=== PATIENT | male | born 1935 | race Caucasian/White ===

== ENCOUNTER 2018-05-29 09:44 | Emergency (ER) | payer OTHER ==
--- OUTSIDE RECORDS SUMMARY | 2018-05-29 09:53 | XMS REPORT | Continuity of Care Document ---
:1935 Author Organization Interface Problems Problem Status Onset Classification Date Comments Source Date Reported PARITAL LOBE Active 10/16/20 [facility] CONTESIUM/ HAND [address] [place] [address] CLOSED CEREBRAL Active 10/16/20 [facility] CONTUSION [address] [place] [address] RIGHT PARIETAL LOBE Active 10/16/20 [facility] CONTUSION [address] [place] [address] Center FALL Active 11/09/[address] TSAH Active 11/09/[address] Final: Unspecified 01/19/20 01/24/2014 [facility] Transient Cerebral 14 [facility] TRANS-ISCHEMIC Active 01/03/20 [facility] ATTACK [address] [place] [address] DDC-EGD Active 05/18/[address] DDC/VARICIES Active 05/18/[address] PORTAL VEIN Active 05/09/20 [facility] TROMBOSIS [address] [place] [address] PORTAL VEIN Active 05/07/20 [facility] THROMBOSIS [address] [place] [address] HOSPITAL F/U Active 04/17/[address] FINGER FX Active 04/12/[address] INTRAPARENCHYMAL Active 04/12/20 [facility] HEMORRHAGE/FX TO [address] [place] [address] FINGER [place] Acute pain Active Problem 05/24/2012 [facility] Acute pain Active Problem 10/20/2017 [facility] CVA (<span Resolved Problem 10/20/2017 [facility] [place] ID="[id number]">C defecits Medical onfirmed</span>)< Center p>1</sup> HLD (<span Resolved Problem 10/20/2017 [place] ID="[id number]">C Medical onfirmed</span>) [place] HTN (<span Resolved Problem 10/20/2017 [place] ID="[id number]">C Medical onfirmed</span>) [place] Prostate cancer Resolved Problem 10/20/2017 [facility] TIA (<span Resolved Problem 10/20/2017 [place] ID="[id number]">Co Medical nfirmed</span>) Center Final: Personal 01/24/2014 [facility] History of Medical Transient Ischemic Center Attack , and Cerebral Infarction without Residual Deficits Final: Unspecified 01/24/2014 [facility] Essential Medical Hypertension Center Prostate cancer Resolved Problem 01/24/2014 [facility] FINGER INJURY NOS Active [facility] PORTAL VEIN Active [facility] THROMBOSIS [facility] ROUTINE MEDICAL Active [facility] EXAM [facility] VARICES OF OTHER Active [facility] SITES Medical [place] ISCHEMIC OPTIC Active [facility] NEUROPTHY [facility] TRAUM SUBRAC HEM W Active [facility] LOC OF [facility] Medical DURATION, [place] CONTUS/LAC CEREB, W Active [facility] OF [facility] Medical DURATION Center Medications Medication Details Route Status Patient Ordering Order Source Instructions Provider Date heparin sodium, 5,000 unit, 1 No Longer [facility] porcine 2500 mL, Route: Active 017 Medical UNT/ML SUB-Q, Drug Center Injectable form: INJ, Solution Q8H, Dosing Weight 81.818, kg, Start date: 10/18/17 8:00:00 [employer], Duration: 30 day, Stop date: 11/17/17 0:00:00 CSTNotes: porcine heparin atorvastatin 40 mg, 1 tab, Inactive [facility] Route: PO, 017 Medical Drug form: Center TAB, Bedtime, Dosing Weight 84.091, kg, Start date: 10/17/17 21:00:00 [employer], Duration: 30 day, Stop date: 11/15/17 21:00:00 CSTNotes: (Same as: Lipitor) Levetiracetam 500 mg=1 tab, Active [facility] 500 MG Oral PO, Q12H, # 12 017 Medical Tablet tab, 0 Center Refill(s) Saline Flush 10 ml, Route: Inactive [facility] 0.9% IVP, Drug 017 Medical Form: INJ, Center Dosing Weight 84.091, kg, Q12H, Start date: 10/17/17 9:00:00 [employer], Duration: 30 day, Stop date: 11/15/17 21:00:00 CSTNotes: Same as: BD Posiflush Sterile Levetiracetam 500 mg, 1 tab, Inactive [facility] Route: PO, 017 Medical Drug form: Center TAB, Q12H, Dosing Weight 84.091, kg, Start date: 10/17/17 9:00:00 [employer], Duration: 30 day, Stop date: 11/15/17 21:00:00 CSTNotes: (Same as:Keppra) sennosides, MCC 8.6 mg, 1 tab, Inactive [facility] Route: PO, 017 Medical Drug Form: Center TAB, Dosing Weight 84.091, kg, Q12H, Start date: 10/17/17 9:00:00 [employer], Duration: 30 day, Stop date: 11/15/17 21:00:00 CSTNotes: (Same as: Senokot) Docusate 100 mg, 1 cap, Inactive [facility] Route: PO, 017 Medical Drug form: Center CAP, Q12H, Dosing Weight 84.091, kg, Start date: 10/17/17 9:00:00 [employer], Duration: 30 day, Stop date: 11/15/17 21:00:00 CSTNotes: (Same as: Colace) (Do Not Crush) Lisinopril 5 mg, 1 tab, Inactive [facility] Route: PO, 017 Medical Drug form: Center TAB, Daily, Dosing Weight 84.091, kg, Start date: 10/17/17 9:00:00 [employer], Duration: 30 day, Stop date: 11/15/17 9:00:00 CSTNotes: (Same as: Prinivil, Zestril) Sertraline 100 mg, 1 tab, Inactive [facility] Route: PO, 017 Medical Drug form: Center TAB, Daily, Dosing Weight 84.091, kg, Start date: 10/17/17 9:00:00 [employer], Duration: 30 day, Stop date: 11/15/17 9:00:00 CSTNotes: (Same as: Zoloft) carvedilol 6.25 mg, 1 Inactive [facility] tab, Route: 017 Medical PO, Drug form: Center TAB, BID, Dosing Weight 84.091, kg, Start date: 10/17/17 9:00:00 [employer], Duration: 30 day, Stop date: 11/15/17 17:00:00 CSTNotes: Give with food. (Same As: Coreg) Hydralazine 10 mg, 0.5 mL, Inactive [facility] Route: IV, [facility] Medical Drug form: Center INJ, Q6H, Dosing Weight 84.091, kg, PRN Hypertension, Start date: 10/17/17 0:55:00 [employer], Duration: 30 day, Stop date: 11/16/17 0:54:00 CSTNotes: (Same as: Apresoline) Push over 5 minutes Labetalol 10 mg, 2 mL, Inactive [facility] Route: IVP, [facility] Medical Drug form: Center INJ, Q15Min, Dosing Weight 84.091, kg, PRN Hypertension, Start date: 10/17/17 0:55:00 [employer], Duration: 30 day, Stop date: 11/16/17 0:54:00 [employer] Dextrose 50% 12.5 gm, 25 Inactive [facility] Syringe mL, Route: [address] [place] [address] IVP, Drug [place] Form: INJ, Dosing Weight 84.091, kg, PRN, PRN Abnormal Lab Result, Start date: 10/17/17 0:53:00 [employer], Duration: 30 day, Stop date: 11/16/17 0:52:00 [employer] Regular 3 unit, 0.03 Inactive [facility] Insulin, Human mL, Route: [address] [place] [address] 100 UNT/ML SUB-Q, [facility] Injectable form: SOLN, Solution PRN, Dosing Weight 84.091, kg, PRN Abnormal Lab Result, Start date: 10/17/17 0:53:00 [employer], Duration: 30 day, Stop date: 11/16/17 0:52:00 CSTNotes: (Same as: Humulin R) Roll in palms of hands gently; Do not shake vigorously. "single patient use only" (Restricted to patients requiring a dose > 60 units) WASTE: F/P - Black; E - Municipal Trash Bin Stable for 28 days at room temperature Expires in days from Date Saline Flush 10 ml, Route: Inactive [facility] 0.9% IVP, Drug [facility] Medical Form: INJ, Center Dosing Weight 84.091, kg, PRN, PRN Line Flush, Start date: 10/17/17 0:53:00 [employer], Duration: 30 day, Stop date: 11/16/17 0:52:00 CSTNotes: Same as: BD Posiflush Sterile Levetiracetam 1,000 mg, Inactive [facility] Route: IVPB, 017 Medical ONCE, Dosing Center Weight 84.091, kg, Start date: 10/17/17 0:53:00 [employer], Stop date: 10/17/17 0:53:00 CSTNotes: Same as Keppra Mix with 100 mL NS, LR or D5W MEDICATION WASTE Product Size: 500 mg Product Wasted: ___ mg Ondansetron 4 mg, 2 mL, Inactive [facility] Route: IVP, 017 Medical Drug form: Center INJ, Q8H, Dosing Weight 84.091, kg, PRN Nausea & Vomiting, Start date: 10/17/17 0:53:00 [employer], Duration: 30 day, Stop date: 11/16/17 0:52:00 CSTNotes: (Same as: Zofran) MEDICATION WASTE Product Size: 4 mg Product Wasted: ___ mg Sodium Chloride 1,000 mL, Inactive [facility] 0.9% IV 1,000 Rate: 100 017 Medical mL ml/hr, Infuse Center over: 10 hr, Route: IV, Dosing Weight 84.091 kg, Total Volume: 1,000, Start date: 10/17/17 0:53:00 [employer], Duration: 30 day, Stop date: 11/16/17 0:52:00 [employer], 2.11, m2 Acetaminophen 1 tab, Route: Inactive [place] 325 MG / PO, Drug Form: 017 Medical Hydrocodone TAB, Dosing Center Bitartrate 5 MG Weight 84.091, Oral Tablet kg, Q4H, PRN Pain Score 1-3, Start date: 10/17/17 0:53:00 [employer], Duration: 30 day, Stop date: 11/16/17 0:52:00 CSTNotes: (Same as: [place] 325/5) Do not exceed 4gm/day of acetaminophen. Levetiracetam 500 mg=1 tab, Active [place] 500 MG Oral PO, Q12H, # 12 016 Medical Tablet tab, 0 Center Refill(s) Aspirin 81 MG 81 mg=1 tab, Active [facility] Enteric Coated PO, Daily, # 016 Medical Tablet 30 tab, 3 Center [Miniprin] Refill(s) carvedilol 6.25 6.25 mg=1 tab, Active [facility] mg oral tablet PO, BID, # 180 016 Medical tab, 0 Center Refill(s) sertraline 100 100 mg=1 tab, Active [facility] mg oral tablet PO, Daily, # 016 Medical 30 tab Center atorvastatin 40 40 mg=1 tab, Active [facility] mg oral tablet PO, Bedtime, # 016 Medical 30 tab [place] lisinopril 5 mg 5 mg=1 tab, Active [facility] oral tablet PO, Daily, # 016 Medical 30 tab [place] Saline Flush 10 ml, Route: No Longer [facility] 0.9% IVP, Drug Active 016 Medical Form: INJ, [place] Dosing Weight 85.455, kg, Q12H, Start date: 11/10/16 9:00:00 [employer], Duration: 30 day, Stop date: 12/09/16 21:00:00 CSTNotes: Same as: BD Posiflush Sterile sennosides, MCC 8.6 mg, 1 tab, No Longer [facility] Route: PO, Active 016 Medical Drug Form: Center TAB, Dosing Weight 85.455, kg, Q12H, Start date: 11/10/16 9:00:00 [employer], Duration: 30 day, Stop date: 12/09/16 21:00:00 CSTNotes: (Same as: Senokot) Levetiracetam 500 mg, 1 tab, No Longer [facility] Route: PO, Active 016 Medical Drug form: [place] TAB, Q12H, Dosing Weight 85.455, kg, Start date: 11/10/16 9:00:00 [employer], Duration: 7 day, Stop date: 11/16/16 21:00:00 CSTNotes: (Same as:Keppra) Docusate Sodium 100 mg, 1 cap, No Longer [place] 100 MG Oral Route: PO, Active 016 Medical Capsule Drug form: [place] CAP, Q12H, Dosing Weight 85.455, kg, Start date: 11/10/16 9:00:00 [employer], Duration: 30 day, Stop date: 12/09/16 21:00:00 CSTNotes: (Same as: Colace) (Do Not Crush) Famotidine 20 mg, 2 mL, Inactive [place] Route: IVP, 016 Medical Drug form: [place] INJ, Q12H, Dosing Weight 85.455, kg, Start date: 11/10/16 9:00:00 [employer], Duration: 30 day, Stop date: 12/09/16 21:00:00 CSTNotes: (Same as: Pepcid) Can be dilute in 5-10cc NS IVP: Slow IV push over at least 2 minutes. Streptococcus 0.5 mL, Route: Inactive [place] pneumoniae IM, Drug Form: [facility] serotype 1 INJ, Daily, Center capsular Start date: antigen 11/10/16 diphtheria 9:00:00 [employer], [id number] protein Duration: 1 conjugate doses or vaccine / times, Stop Streptococcus date: 11/10/16 pneumoniae 9:00:00 serotype 14 CSTNotes: capsular Lightly roll antigen vial (DO NOT diphtheria SHAKE) before [id number] protein administration conjugate . (Same as: vaccine / Prevnar 13) Streptococcus pneumoniae serotype 18C capsular antigen d tramadol 50 mg, 1 tab, No Longer [place] hydrochloride Route: PO, Active 016 Medical 50 MG Oral Drug form: [place] Tablet TAB, Q6H, Dosing Weight 85.455, kg, PRN Pain Score 4-6, Start date: 11/10/16 5:32:00 [employer], Duration: 30 day, Stop date: 12/10/16 5:31:00 CSTNotes: Not to exceed 400mg/day. (Same As: Ultram) Insulin regular 4 unit, 0.04 No Longer [place] mL, Route: Active 016 Medical SUB-Q, Drug Center form: SOLN, Sliding Scale, Dosing Weight 85.455, kg, PRN Blood Glucose Results, Start date: 11/10/16 2:06:00 [employer], Duration: 30 day, Stop date: 12/10/16 2:05:00 CSTNotes: (Same as: Humulin R) Roll in palms of hands gently; Do not shake vigorously. "single patient use only" (Restricted to patients requiring a dose > 60 units) WASTE: F/P - Black; E - Municipal Trash Bin Stable for 28 days at room temperature Expires in days from Date Saline Flush 10 ml, Route: No Longer [facility] 0.9% IVP, Drug Active 016 Medical Form: INJ, Center Dosing Weight 85.455, kg, PRN, PRN Line Flush, Start date: 11/10/16 2:06:00 [employer], Duration: 30 day, Stop date: 12/10/16 2:05:00 CSTNotes: Same as: BD Posiflush Sterile Labetalol 10 mg, 2 mL, No Longer [facility] Route: IVP, Active 016 Medical Drug form: Center INJ, Q15Min, Dosing Weight 85.455, kg, PRN Hypertension, Start date: 11/10/16 2:06:00 [employer], Duration: 3 doses or times, Stop date: Limited # of times Ondansetron 4 mg, 2 mL, No Longer [facility] Route: IVP, Active 016 Medical Drug form: Center INJ, Q8H, Dosing Weight 85.455, kg, PRN Nausea & Vomiting, Start date: 11/10/16 2:06:00 [employer], Duration: 30 day, Stop date: 12/10/16 2:05:00 CSTNotes: (Same as: Tacos) MEDICATION WASTE Product Size: 4 mg Product Wasted: ___ mg Morphine 1 mg, 0.5 mL, Inactive [facility] Route: IVP, 016 Medical Drug form: Center INJ, Q4H, Dosing Weight 85.455, kg, PRN Pain Score 7-10, Start date: 11/10/16 2:06:00 [employer], Duration: 30 day, Stop date: 12/10/16 2:05:00 CSTNotes: (Same as:MORPhine Sulfate) Bisacodyl 10 mg, 1 supp, No Longer [facility] Route: CO, Active 016 Medical Drug form: Center SUPP, Daily, Dosing Weight 85.455, kg, PRN Constipation, Start date: 11/10/16 2:06:00 [employer], Duration: 30 day, Stop date: 12/10/16 2:05:00 CSTNotes: (Same As: Dulcolax, Bisco-Lax) Acetaminophen 1 tab, Route: Inactive [facility] 325 MG / PO, Drug Form: 016 Medical Hydrocodone TAB, Dosing Center Bitartrate 5 MG Weight 85.455, Oral Tablet kg, Q6H, PRN [[place] 5/325] Pain Score 4-6, STAT, Start date: 11/10/16 2:04:00 [employer], Duration: 30 day, Stop date: 12/10/16 2:03:00 CSTNotes: (Same as: [place] 325/5) Do not exceed 4gm/day of acetaminophen. Tylenol 650 mg, 2 tab, No Longer [facility] Route: PO, Active [facility] Drug form: Center TAB, Q6H, Dosing Weight 85.455, kg, PRN Pain 1-3/Temp > 100.4 F, Priority: STAT, Start date: 11/10/16 2:03:00 [employer], Duration: 30 day, Stop date: 12/10/16 2:02:00 CSTNotes: Do not exceed 4 gm/day. (Same as: Tylenol) Keppra 1,000 mg, Inactive [facility] Route: IV, 016 Medical ONCE, Dosing Center Weight 85.455, kg, Priority: STAT, Start date: 11/10/16 1:28:00 [employer], Stop date: 11/10/16 1:28:00 CSTNotes: Same as Keppra Mix with 100 mL NS, LR or D5W MEDICATION WASTE Product Size: 500 mg Product Wasted: ___ mg sodium chloride 1,000 mL, No Longer [facility] 0.9% 1000 ml Rate: 75 Active [facility] INJ 1,000 mL ml/hr, Infuse Center over: 13.3 hr, Route: IV, Dosing Weight 85.455 kg, Total Volume: 1,000, Start date: 11/10/16 1:28:00 [employer], Duration: 30 day, Stop date: 12/10/16 1:27:00 [employer] Saline Flush 10 mL, Route: No Longer [facility] 0.9% IVP, Drug Active 016 Medical Form: INJ, Center Dosing Weight 85.455, kg, PRN, PRN Line Flush, Start date: 11/10/16 0:47:00 [employer], Duration: 30 day, Stop date: 12/10/16 0:46:00 CSTNotes: Same as: BD Posiflush Sterile Lisinopril 5 mg, 1 tab, No Longer [facility] Route: PO, Active 014 Medical Drug form: Center TAB, Daily, Dosing Weight 90.909, kg, Start date: 01/05/14 9:00:00, Duration: 30 day, Stop date: 02/03/14 9:00:00(Same as: Prinivil, Zestril) Ascorbic Acid / 1 tab, Route: No Longer [facility] Biotin / Folic PO, Drug Form: Active 014 Medical Acid / Niacin / TAB, Dosing Center pantothenate / Weight 90.909, pyridoxine / kg, Daily, Riboflavin / Start date: Thiamine 01/05/14 Vitamin B 12 9:00:00, Duration: 30 day, Stop date: 02/03/14 9:00:00(Same as:Thera) Take with food. Vitamin B12 1,000 No Longer [facility] microgram, 1 Active 014 Medical tab, Route: Center PO, Drug form: TAB, Daily, Dosing Weight 90.909, kg, Start date: 01/05/14 9:00:00, Duration: 30 day, Stop date: 02/03/14 9:00:00(Same As: Vitamin B-12) lisinopril 5 mg 5 mg=1 tab, Active [facility] oral tablet PO, Daily, # 014 Medical 30 tab, 0 Center Refill(s) Zoloft 100 mg, 1 tab, Inactive [facility] Route: PO, 014 Medical Drug form: Center TAB, Daily, Dosing Weight 90.909, kg, Start date: 01/04/14 14:00:00, Duration: 30 day, Stop date: 02/03/14 9:00:00(Same as: Zoloft) lisinopril 20 40 mg=2 tab, Inactive [facility] mg oral tablet PO, Daily, # 014 Medical 30 tab, 0 Center Refill(s) atorvastatin 80 80 mg=1 tab, Active [facility] mg oral tablet PO, Bedtime, # 014 Medical 30 tab, 0 Center Refill(s) Aspirin 81 MG 81 mg=1 tab, Active [facility] Enteric Coated PO, Daily, # 014 Medical Tablet 30 tab, 0 Center Refill(s) Aspirin / 81 mg, 1 tab, Inactive [facility] Calcium Route: PO, 014 Medical Carbonate Drug form: [place] ECTAB, Daily, Dosing Weight 90.909, kg, Start date: 01/04/14 13:30:00, Duration: 30 day, Stop date: 02/03/14 9:00:00Do not crush or chew. (Same As: Ecotrin) Lisinopril 40 mg, 2 tab, Inactive [facility] Route: PO, 014 Medical Drug form: [place] TAB, Daily, Dosing Weight 90.909, kg, Priority: NOW, Start date: 01/04/14 12:07:00, Duration: 30 day, Stop date: 02/03/14 9:00:00(Same as: Prinivil, Zestril) Ascorbic Acid 1 tab, PO, Active [facility] 200 MG / Beta Daily, # 30 014 Medical Carotene 1000 tab, 0 Center UNT / cuprous Refill(s) oxide 2 MG / dl-alpha tocopheryl acetate 60 UNT / Lutein 2 MG / sodium selenate 0.055 MG / Zinc Oxide 40 MG Oral Tablet [Ocuvite] Vitamin B12 1 tablet, PO, Active [facility] Daily, 0 014 Medical Refill(s) [place] Ascorbic Acid / 1 tablet, PO, Active [facility] Biotin / Folic Daily, 0 014 Medical Acid / Niacin / Refill(s) [place] pantothenate / pyridoxine / Riboflavin / Thiamine / Vitamin B 12 Aspirin 81 MG 81 mg=1 tab, Inactive [facility] Enteric Coated PO, Daily 014 Medical Tablet [place] Sertraline 100 100 mg=1 tab, Active [facility] MG Oral Tablet PO, Daily 014 Medical [Zoloft] [place] Iohexol 85 mL, Route: Inactive [facility] IVP, Drug 014 Medical Form: [facility] Dosing Weight 90.909, kg, ONCALL, STAT, Start date: 01/04/14 6:27:00, Duration: 1 doses or times, Dose=2.2ml/kg, Max [id number] -- "To be infused by Radiology Staff ONLY"Dose=2.2m l/kg, Max [id number] -- "To be infused by Radiology Staff ONLY"(Same as:Omnipaque 350). Enoxaparin 40 mg, 0.4 mL, Inactive [facility] Route: SUB-Q, 014 Medical Drug form: [place] INJ, [id number], Dosing Weight 90.909, kg, Start date: 01/04/14 6:00:00, Duration: 30 day, Stop date: 02/02/14 6:00:00(Same as: Lovenox) Acetaminophen 650 mg, 2 tab, Inactive [facility] Route: PO, 014 Medical Drug form: [place] TAB, Q4H, Dosing Weight 90.909, kg, PRN Pain 1-3/Temp > 99.5 F, Start date: 01/04/14 5:46:00, Duration: 30 day, Stop date: 02/03/14 5:45:00Do not exceed 4 gm/day. (Same as: Tylenol) atorvastatin 80 mg, 1 tab, Inactive [facility] Route: PO, 014 Medical Drug form: [place] TAB, Bedtime, Dosing Weight 90.909, kg, Priority: NOW, Start date: 01/04/14 1:20:00, Duration: 30 day, Stop date: 02/02/14 21:00:00Same as Lipitor Aspirin / 325 mg, 1 tab, Inactive [facility] Calcium Route: PO, 014 Medical Carbonate Drug form: [place] TAB, Daily, Dosing Weight 90.909, kg, Priority: NOW, Start date: 01/04/14 1:20:00, Duration: 30 day, Stop date: 02/02/14 9:00:00Take with food. docusate sodium 100 mg, 1 cap, PO Active [facility] [place] 100 mg oral PO, Q12H, 20 012 Medical capsule cap, Center Substitution Allowed, CAP [place] 5/325 1-2 tab, PO, PO Active [facility] oral tablet Q4-6H, PRN, 30 012 Medical tab, Pain, Center Substitution Allowed, Maintenance phenytoin 300 300 mg, 1 cap, PO Active [facility] [place] mg oral PO, Bedtime, 5 012 Medical capsule, cap, Center extended Substitution release Allowed Keflex 500 mg 500 mg, 1 cap, PO Active [facility] oral capsule PO, Q8H, 15 012 Medical cap, Center Substitution Allowed Lovenox 30 mg, 0.3 mL, SUB-Q No Longer [facility] Route: SUB-Q, Active 012 Medical Drug form: Center INJ, Q12H, Start date: 04/14/12 9:00:00, Duration: 30 day, Stop date: 05/13/12 21:00:00 docusate sodium 100 mg, 1 cap, PO No Longer [facility] [place] 100 mg oral Route: PO, Active 012 Medical capsule Drug form: Center CAP, Q12H, Start date: 04/13/12 21:00:00, Duration: 30 day, Stop date: 05/13/12 9:00:00 cefazolin 1 gm, Route: IVPB No Longer [facility] IVPB, Drug Active 012 Medical form: PDR/INJ, Center [id number], Start date: 04/13/12 15:00:00, Duration: 24 hr, Stop date: 04/14/12 7:00:00 cefazolin 1 gm, Route: IVPB No Longer [facility] ([facility]) IVPB, Drug Active 012 Medical form: PDR/INJ, Center Q8H, Start date: 04/13/12 10:30:00, Duration: 3 doses or times, Stop date: 04/14/12 2:30:00, (for patients weighing less than 70 kg)(for patients weighing less than 70 kg) Zofran 4 mg, 2 mL, IVP No Longer [facility] Route: IVP, Active 012 Medical Drug form: Center INJ, Q8H, PRN Nausea & Vomiting, Start date: 04/13/12 9:06:00, Duration: 30 day, Stop date: 05/13/12 9:05:00 morphine 2 mg, 1 mL, IV No Longer [facility] Sulfate Route: IV, Active 012 Medical Drug form: Center INJ, Q4H, PRN Pain, Start date: 04/13/12 9:01:00, Duration: 30 day, Stop date: 05/13/12 9:00:00 acetaminophen-h 1 tab, Route: PO No Longer [facility] ydrocodone 325 PO, Drug Form: Active 012 Medical mg-10 mg oral TAB, Q4H, Center tablet Start date: 04/13/12 9:00:00, Duration: 30 day, Stop date: 05/13/12 8:00:00 Dilantin 100 mg 100 mg, 1 cap, PO No Longer Goel [facility] oral capsule, Route: PO, Active 012 Medical extended Drug form: [place] release ERCAP, TID, Start date: 04/13/12 9:00:00, Duration: 7 day, Stop date: 04/19/12 17:00:00 phenytoin 100 mg, 1 cap, PO No Longer [facility] Route: PO, Active 012 Medical Drug form: [place] ERCAP, Q8H, Start date: 04/13/12 8:00:00, Duration: 7 day, Stop date: 04/20/12 0:00:00 Insulin regular 1 unit, 0.01 SUB-Q No Longer [facility] mL, Route: Active 012 Medical SUB-Q, Drug Center form: SOLN, TID-Before Meals, PRN Blood Glucose Results, Start date: 04/13/12 6:05:00, Duration: 30 day, Stop date: 05/13/12 6:04:00 bisacodyl 10 mg, 2 tab, PO No Longer [facility] Route: PO, Active 012 Medical Drug form: [place] ECTAB, Q24H, PRN Constipation, Start date: 04/13/12 6:05:00, Duration: 30 day, Stop date: 05/13/12 6:04:00 docusate 100 mg, 1 cap, PO No Longer -Zo [facility] Route: PO, Active 012 Medical Drug form: [place] CAP, BID, PRN Constipation, Start date: 04/13/12 6:05:00, Duration: 30 day, Stop date: 05/13/12 6:04:00 acetaminophen-h 1 tab, Route: PO No Longer Formerly [facility] ydrocodone 325 PO, Drug Form: Active 012 Medical mg-10 mg oral TAB, Q4H, PRN [place] tablet Pain Score 1-3, Start date: 04/13/12 6:05:00, Duration: 30 day, Stop date: 05/13/12 6:04:00 morphine 4 mg, 1 mL, IVP No Longer [facility] Sulfate Route: IVP, Active 012 Medical Drug form: [place] INJ, Q4H, PRN Pain Score 7-10, Start date: 04/13/12 6:05:00, Duration: 30 day, Stop date: 05/13/12 6:04:00 Dilaudid 1 mg, Route: IV No Longer Ak[facility] IV, ONCE, Active 012 Medical Priority: Center STAT, Start date: 04/13/12 2:23:00, Stop date: 04/13/12 2:23:00 D5W 1/2NS 1,000 1,000 mL, IV No Longer Akunyili [facility] mL Rate: 100 Active 012 Medical ml/hr, Infuse Center over: 10 hr, Route: IV, Dosing Weight 91 kg, Total Volume: 1,000, Priority: STAT, Start date: 04/13/12 1:48:00, Duration: 30 day, Stop date: 05/13/12 1:47:00 Sodium Chloride 1,000 mL, IV No Longer Akunli [facility] 0.9% (Bolus) IV Rate: 100 Active 012 Medical 1,000 mL ml/hr, Infuse Center over: 10 hr, Route: IV, Dosing Weight 90.909 kg, Total Volume: 1,000, Bolus Dose, Priority: STAT, Start date: 04/13/12 1:24:00, Duration: 1 doses or times, Stop date: 04/13/12 11:23:00 cefazolin 1 gm, Route: IVPB No Longer Akuny[facility] IVPB, Drug Active 012 Medical form: PDR/INJ, Center ONCE, Priority: STAT, Start date: 04/13/12 1:23:00, Stop date: 04/13/12 1:23:00 fosphenytoin 1,000 mg, 20 IVPB No Longer Akunyili [facility] mL, Route: Active 012 Medical IVPB, ONCE, Center Priority: STAT, Start date: 04/12/12 22:12:00, Stop date: 04/12/12 22:12:00 aspirin 81 mg Substitution No Longer [facility] tablet, Allowed Active [address] [place] [address] chewable [place] citalopram Substitution Active [facility] Allowed [address] [place] [address] Center Allergies, Adverse Reactions, Alerts Substance Category Reaction Severity Reaction Status Date Comments Source type Reported NKDA Assertion Drug Active [facility] allergy [facility] Immunizations Immunization Date Given Site Status Last Comments Source Updated pneumococcal 11/10/2016 Right completed Sajche [facility] 13-valent vaccine Deltoid [facility] Results Order Name Results Value Reference Date Interpretation Comments Source Range CHEM PANEL Bili Total 1.2 mg/dL 0.2 - 1.3 10/[address] CHEM PANEL Total Protein 6.8 g/dL 6.4 - 8.4 10/[address] CHEM PANEL ALT 18 unit/L 0 - 65 10/[address] CHEM PANEL Alk Phos 56 unit/L 39 - 136 10/[address] CHEM PANEL Albumin Lvl 3.2 g/dL 3.5 - 5.0 10/[address] CHEM PANEL AST 23 unit/L 0 - 37 10/[address] CHEM PANEL eGFR 82 10/17 Result Comment: The eGFR is calculated using the CKD-EPI formula. In most young, healthy individuals the eGFR will be >90 mL/ min/1.73m2. The eGFR declines with age. An eGFR of 60-89 may be normal in [facility] mL/min/1.7 /2016 some populations, particularly the elderly, for whom the CKD-EPI formula has not been extensively validated. Use of the eGFR is not recommended in the following populations: [address] Individuals with unstable creatinine concentrations, including patients and those with serious co-morbid conditions. Patients with extremes in muscle mass or diet. The data above are obtained from the National Kidney Disease Education Program (NKDEP) which additionally recommends that when the eGFR is used in patients with extremes of body mass index for purposes of drug dosing, the eGFR should be multiplied by the estimated BMI. CHEM PANEL Calcium Lvl 7.9 mg/dL 8.5 - 10.5 10/[address] CHEM PANEL CO2 27 meq/L 24 - 32 10/[address] CHEM PANEL Chloride Lvl 108 meq/L 95 - 109 10/[address] CHEM PANEL Potassium Lvl 3.6 meq/L 3.5 - 5.1 10/[address] CHEM PANEL Sodium Lvl 141 meq/L 135 - 145 10/[address] CHEM PANEL BUN 16 mg/dL 7 - 22 10/[address] CHEM PANEL Creatinine 0.86 mg/dL 0.50 - 10/17 [facility] Lvl [address].40 [facility] CHEM PANEL Glucose Lvl 107 mg/dL 70 - 99 10/[address] CHEM PANEL Globulin 3.6 g/dL 2.7 - 4.2 10/[address] CHEM PANEL A/G Ratio 0.9 0.7 - 1.6 10/[address] CHEM PANEL B/C Ratio 19 6 - 25 10/[address] CHEM PANEL AGAP 9.6 meq/L 10.0 - 10/17 [facility] [address] [facility] HEMATOLOGY Basophils 1.3 % 0.0 - 1.0 10/[address] HEMATOLOGY Eosinophils 8.7 % 0.0 - 4.0 10/[address] HEMATOLOGY Monocytes 8.6 % 2.0 - 12.0 10/[address] HEMATOLOGY Basophils # 0.1 K/CMM 0.0 - 0.2 10/[address] HEMATOLOGY Lymphocytes # 2.2 K/CMM 1.0 - 5.5 10/[address] HEMATOLOGY Segs-Bands # 3.3 K/CMM 1.5 - 8.1 10/[address] HEMATOLOGY Monocytes # 0.6 K/CMM 0.0 - 0.[address] [facility] HEMATOLOGY Eosinophils # 0.6 K/CMM 0.0 - 0.5 10/17 [facility] HEMATOLOGY Lymphocytes 32.7 % 20.0 - 10/17 40.0 /2016 [facility] HEMATOLOGY Segs 48.7 % 45.0 - 10/17 75.0 /2016 [facility] HEMATOLOGY PT 13.4 s 12.0 - 10/[address] [facility] HEMATOLOGY INR 1.02 0.85 - 10/17 [facility] [address] [facility] HEMATOLOGY PTT 27.9 s 22.9 - 10/17 [facility] [address] [facility] HEMATOLOGY Hct 42.1 % 42.0 - 10/17 [facility] [address] [facility] HEMATOLOGY MCV 91.8 fL 80.0 - 10/[address] [facility] HEMATOLOGY MCHC 34.5 g/dL 32.0 - 10/[address] [facility] HEMATOLOGY MCH 31.6 pg 27.0 - 10/[address] [facility] HEMATOLOGY Platelet 152 K/CMM 133 - 450 10/17 [facility] HEMATOLOGY RDW 13.6 % 11.5 - 10/[address] [facility] HEMATOLOGY MPV 8.8 fL 7.4 - 10.4 10/17 [facility] HEMATOLOGY Hgb 14.5 g/dL 14.0 - 10/[address] [facility] HEMATOLOGY RBC 4.59 M/CMM 4.70 - 10/[address] [facility] HEMATOLOGY WBC 6.7 K/CMM 3.7 - 10.4 10/17 [facility] Spine Spine EXAM: CT CERVICAL SPINE WITHOUT CONTRAST 10/17 - [facility] cervical wo cervical - Medical contrast CT contrast CT Center DATE: 10/17/2017 1:09 AM [employer] Read by: Yvette Robledo MD Dictated Date/time: 10/17/17 10:19 Electronically Signed by: Yvette Robledo MD 10/17/17 10:21 FINAL REPORT INDICATION: - s/p fall COMPARISON: None available TECHNIQUE: Volumetric CT acquisition of the cervical spine without contrast. Axial, sagittal and coronal reconstructions. IV contrast: None. DLP: 540.44 mGy-cm DISCUSSION: The spine is imaged from the skull base to the level of T3. No acute fracture or malalignment is identified. The level diffuse degenerative changes are present. Facet hypertrophic changes and uncovertebral hypertrophic changes are also present. No significant li sthesis. No soft tissue abnormality is identified. IMPRESSION: No acute abnormality of the cervical spine. Multilevel diffuse degenerative changes. Brain wo Brain wo EXAM: CT BRAIN 10/16 [facility] contrast CT contrast CT /2017 - [facility] This report was dictated by a Medicaid Specialist/Fellow. I have personally reviewed the images as Center well as the Resident's interpretation and agree with the findings. DATE: 10/16/2017 at 22:02 Read by: Cadence Koo MD Resident: Cadence Koo MD Dictated Date/time: 10/16/17 22:08 Electronically Signed by: sAtrid Villanueva MD 10/16/17 23:24 FINAL REPORT CLINICAL INFORMATION: - s/p fall COMPARISON: CT brain 10/16/2017 at 15:18 from outside hospital TECHNIQUE: Axial images of the brain were obtained from the skull base through the vertex without contrast material administration. DLP: 865 mGycm DISCUSSION: Stable small hyperdense lesion in the right occipitoparietal region (image 31 series 5). Areas of hypodensity in the left MCA /[employer] watershed territories secondary to remote ischemia. Confluent hypodensi ty in the supratentorial white matter compatible with leukoaraiosis. Encephalomalacia in the right frontal lobe. Compensatory dilatation of the lateral ventricles, left greater than right. No midline shift or brain herniation. IMPRESSION: Stable small hyperdense lesion in the right occipitoparietal region potentially a small focus of hemorrhage in the setting of recent trauma versus a cavernous angioma. Brain-Outsi Brain-Outside EXAM: CT BRAIN WITHOUT CONTRAST 10/16 [facility] de Consult Consult CT /2016 - [facility] CT Center INDICATION: - outside study, pain post trauma Read by: Allegra Schumacher MD Dictated Date/time: 10/17/17 12:02 Electronically Signed by: Allegra Schumacher MD 10/17/17 12:06 FINAL REPORT COMPARISON: November 10, 2016 TECHNIQUE: Routine axial CT images of the brain were obtained. DISCUSSION: Hyperdense focus at the right temporal occipital junction without surrounding edema or mass effect. Otherwise no additional hemorrhages identified. Encephalomalacia throughout the left hemisphere and ri ght parietal-occipital lobes. Microangiopathic changes and generalized volume loss are present. IMPRESSION: Small hyperdense focus at the left temporal occipital junction may represent a small focus of contusion. No mass effect. Agree with the outside report. Brain-Outsi Brain-Outside EXAM: CT FACIAL BONES OUTSIDE CONSULTATION - [facility] Consult Consult CT /2016 - [facility] CT Center DATE: 10/16/2017 8:53 PM [employer] Read by: Casey Pang MD Dictated Date/time: 10/17/17 12:44 Electronically Signed by: Casey Pang MD 10/17/17 12:45 FINAL REPORT INDICATION: Second interpretation of outside CT performed on trauma transfer patient. COMPARISON: None. TECHNIQUE: Multiplanar images of the facial bones without contrast. Axial , sagittal and coronal images are provided. IV contrast: None. OUTSIDE REPORT: From [facility]. No acute facial bone fracture. DISCUSSION: No acute fracture or malalignment is identified. No acute soft tissue abnormality is identified. IMPRESSION: No acute abnormality. This report is in agreement with the initial interpretation obtained from the outside facility. CARDIAC Total CK 113 unit/L 12 - 191 11/10 [facility] ENZYMES /2016 [facility] CARDIAC Troponin-I null 0.00 - 11/10 [facility] ENZYMES 0.40 /2015 [facility] CARDIAC CK MB Index 1.6 0.0 - 2.5 11/10 [facility] ENZYMES /2016 [facility] CARDIAC CK MB 1.8 ng/mL 0.5 - 3.6 11/10 [facility] ENZYMES /2016 [facility] Carotid Carotid EXAM: US EXTRACRANIAL ARTERIAL DOPPLER 11/10 - [facility] artery artery /2015 - Medical Doppler Doppler bilat Center bilat US US DATE: 11/10/2016 1:37 AM [employer] C[employer] Read by: Jordan Harding MD Dictated Date/time: 11/11/16 09:09 Electronically Signed by: Jordan Harding MD 11/11/16 09:11 FINAL REPORT INDICATION: Syncope and collapse COMPARISON: None. TECHNIQUE: Multiplanar grayscale, color Doppler and spectral Doppler ultrasound images of the carotid and vertebral arteries. DISCUSSION: Right Carotid System: Right Common Carotid Artery (RCCA): 76.3 cm/s Right Internal Carotid Artery (DENISE): 75.7 cm/s The ICA/CCA ratio on the right is 0.99. Right Vertebral Artery (RVA): Antegrade flow with normal waveform. Left Carotid System: Left Common Carotid Artery (LCCA): 110 cm/s Left Internal Carotid Artery (LICA): 77.8 cm/s The ICA/CCA ratio on the left is 0.71 Left Vertebral Artery (LVA): Antegrade flow with normal waveform. IMPRESSION: Unremarkable carotid Doppler without hemodynamically significant stenosis. According to the 2003 Consensus criteria: <50% stenosis: PSV <125 cm/sec, EDV <40cm/sec, ICA:CCA ratio <2 50-69% stenosis: PSV 125-230cm/sec, EDV 40-100cm/sec, ICA:CCA ratio 2-4 >70% stenosis: PSV >230cm/sec, EDV >100cm/sec, ICA:CCA ratio >4 Reference: Radiology. 2003 [id number]. Carotid Artery Stenosis: Murray-scale and Doppler US diagnosis- Society of Radiologists in Ultrasound Consensus Conference. Silvio EG, Marcelo CB, Divine GL, et. al. CARDIAC Troponin-T null 0.000 - 11/[address] [place] [address] [address] [facility] CARDIAC Troponin-I null 0.00 - 11/[address] [place] [address] [address] [facility] CARDIAC Total CK 102 unit/L 11/[address] [place] [address] [facility] CARDIAC CK MB 2.1 ng/mL 0.5 - 3.6 11/10 [place] ENZYM[facility] /2016 [facility] CARDIAC CK MB Index 2.1 0.0 - 2.5 11/10 [place] ENZ[facility] /2016 [facility] CARDIAC CK MB Index 1.8 0.0 - 2.5 11/10 [place] ENZ[facility] /2016 [facility] CARDIAC CK MB 1.7 ng/mL 0.5 - 3.6 11/10 [place] ENZ[facility] /2016 [facility] CARDIAC Troponin-T null 0.000 - 11/10 [place] EN[facility] 0.100 /2016 [facility] CARDIAC Troponin-I null 0.00 - 11/10 [place] ENZYMES 0.40 /2015 [facility] CARDIAC Total CK 92 unit/L 11/10 [place] ENZYM[facility] /2016 [facility] DRUG SCREEN U Phencyc Scr Negative Negative 11/10 [facility] *NA* [place] (11/10/16 5:32 AM) DRUG SCREEN U Danyelle Scr Negative Negative [facility]/10 [facility] [place] (11/10/16 5:32 AM) DRUG SCREEN U Amph Scr Negative Negative 11/[address] [facility]* [place] (11/10/16 5:32 AM) DRUG SCREEN U Opiate Scr Negative Negative 11/10 [facility] [place] (11/10/16 5:32 AM) DRUG SCREEN U Cocaine Scr Negative Negative 11/[address] [facility]* [place] (11/10/16 5:32 AM) DRUG SCREEN U Cannab Scr Negative Negative 11/[address] [facility]* [place] (11/10/16 5:32 AM) DRUG SCREEN UDS Note See Note 11/10 [facility] (11/10/16 5:32 AM) DRUG SCREEN U Benzodia Negative Negative 11/10 [facility] Scr [facility] [place] (11/10/16 5:32 AM) URINE AND UA Mucus Few /LPF None Seen 11/10 [facility] STOOL /LPF /2015 [facility] URINE AND UA WBC 3 /HPF 0 - 5 11/10 [facility] [address]OOL [facility] URINE AND UA Sq Epi Occasional Few /LPF 11/10 [facility] STOOL /LPF /2015 [facility] URINE AND UA Nitrite Negative Negative 11/10 [facility] STOOL [facility] (11/10/16 5:32 AM) [place] URINE AND UA Leuk Est Negative Negative 11/10 [facility] STOOL [facility] (11/10/16 5:32 AM) [place] URINE AND UA 0.2 mg/dL 0.1 - 1.0 11/10 [facility] Urobilinogen /2015 [facility] URINE AND UA Glucose Negative Negative 11/10 [facility] STOOL [facility] (11/10/16 5:32 AM) [place] URINE AND UA Ketones Negative Negative 11/10 [facility] STOOL [facility] (11/10/16 5:32 AM) [place] URINE AND UA Color Light Yellow Yellow 11/10 [facility] STOOL /2015 [facility] (11/10/16 5:32 AM) [place] URINE AND UA Turbidity Clear Clear 11/10 [facility] STOOL [facility] (11/10/16 5:32 AM) [place] URINE AND UA Spec Grav 1.007 <=1.030 11/10 [facility] /2015 [facility] URINE AND UA Blood Negative Negative 11/10 [facility] /2015 [facility] (11/10/16 5:32 AM) [place] URINE AND UA pH 7.5 5.0 - 8.0 11/10 [facility] /2015 [facility] URINE AND UA Bili Negative Negative 11/10 [facility] /2015 [facility] (11/10/16 5:32 AM) [place] URINE AND UA Protein Negative Negative 11/10 [facility] /2015 [facility] (11/10/16 5:32 AM) [place] BLOOD BANK ABO/Rh A POS 11/10 [facility] /2015 [facility] BLOOD BANK Antibody Scrn Negative 11/10 [facility] /2015 [facility] (11/10/16 3:12 AM) [place] Brain wo Brain wo EXAM: CT BRAIN WITHOUT CONTRAST 11/10 - [facility] contrast CT contrast CT /2015 - [facility] DATE: 11/10/2016 8:12 AM Read by: Rodney Aguila MD Dictated Date/time: 11/10/16 08:50 Electronically Signed by: Rodney Aguila MD 11/10/16 08:58 FINAL REPORT INDICATION: Headache, status post fall, transfer for intracranial hemorrhage COMPARISON: None TECHNIQUE: Noncontrast axial imaging of the brain was acquired from the vertex to the skull base. DLP: 1077mGy-cm FINDINGS: Small amount subarachnoid hemorrhage is present left frontoparietal vertex. A small focus of left frontal region hemorrhage (images 25-26) is favored to be subarachnoid. No definitive acute parenchymal abnormality. Diffuse microangiopathic changes. Left parietal-occipital encephalomalacia and small focus of encephalomalacia at the posterior left frontal vertex. Generalized volume loss with passive ventriculomegaly . No midline shift or herniation. The imaged paranasal sinuses and mastoid air cells are clear. Calvarium and skull base are intact. IMPRESSION: Small volume of subarachnoid hemorrhage. No definitive acute parenchymal abnormality. CHEM PANEL Lactic Acid 1.2 mmol/L 0.5 - 2.2 11/[address] [facility] CHEM PANEL Calcium Lvl 8.9 mg/dL 8.5 - 10.5 11/10 [facility]2015 [facility] CHEM PANEL CO2 28 meq/L 24 - 32 11/10 [facility]2015 [facility] CHEM PANEL eGFR 67 11/10 Result Comment: The eGFR is calculated using the CKD-EPI formula. In most young, healthy individuals the eGFR will be >90 mL/ min/1.73m2. The eGFR declines with age. An eGFR of 60-89 may be normal in [facility] mL/min/1. some populations, particularly the elderly, for whom the CKD-EPI formula has not been extensively validated. Use of the eGFR is not recommended in the following populations: [address] Individuals with unstable creatinine concentrations, including patients and those with serious co-morbid conditions. Patients with extremes in muscle mass or diet. The data above are obtained from the National Kidney Disease Education Program (NKDEP) which additionally recommends that when the eGFR is used in patients with extremes of body mass index for purposes of drug dosing, the eGFR should be multiplied by the estimated BMI. CHEM PANEL Chloride Lvl 105 meq/L 95 - 109 11/10 [facility] CHEM PANEL Potassium Lvl 4.4 meq/L 3.5 - 5.1 11/10 [facility]2015 [facility] CHEM PANEL Creatinine 1.05 mg/dL 0.50 - 11/10 [facility] Lvl [address].40 [facility] CHEM PANEL Sodium Lvl 141 meq/L 135 - 145 11/10 [facility]2015 [facility] CHEM PANEL Glucose Lvl 106 mg/dL 70 - 99 11/10 [facility]2015 [facility] CHEM PANEL BUN 19 mg/dL 7 - 22 11/10 [facility] [facility] CHEM PANEL AGAP 12.4 meq/L 10.0 - 11/10 [facility] [address] [facility] CHEM PANEL Lactic Acid 0.9 mMol/L 0.5 - 2.2 11/10 [facility] HEMATOLOGY Estimated % 1.2 % 0.0 - 7.5 11/10 [facility] Lysis [facility] HEMATOLOGY [place] 0.6 min 11/10 [facility] HEMATOLOGY K-time Rapid 1.7 min 0.6 - 2.3 11/10 [facility] [facility] HEMATOLOGY R-time Rapid 0.7 min 0.4 - 0.7 11/10 [facility] [facility] HEMATOLOGY Angle Rapid 73 degrees 64 - 80 11/10 [facility]2015 [facility] HEMATOLOGY ACT (TEG) 113 s 86 - 118 11/10 [facility] HEMATOLOGY G-value Rapid 7.0 K d/sc 5.0 - 11.6 11/10 [facility] HEMATOLOGY Max Amplitude 58 mm 52 - 71 11/10 [facility] HEMATOLOGY Platelet 160 K/CMM 133 - 450 11/10 [facility] HEMATOLOGY MPV 8.9 fL 7.4 - 10.4 11/10 [facility] HEMATOLOGY RDW 13.6 % 11.5 - 11/[address] [facility] HEMATOLOGY WBC 8.9 K/CMM 3.7 - 10.4 11/10 [facility] HEMATOLOGY Hgb 15.5 g/dL 14.0 - 11/[address] [facility] HEMATOLOGY RBC 4.97 M/CMM 4.70 - 11/[address] [facility] HEMATOLOGY MCH 31.2 pg 27.0 - 11/[address] [facility] HEMATOLOGY Hct 45.5 % 42.0 - 11/[address] [facility] HEMATOLOGY MCHC 34.1 g/dL 32.0 - 11/[address] [facility] HEMATOLOGY MCV 91.5 fL 80.0 - 11/[address] [facility] HEMATOLOGY Monocytes 10.7 % 2.0 - 12.0 11/10 [facility] HEMATOLOGY Eosinophils 8.3 % 0.0 - 4.0 11/10 [facility] HEMATOLOGY Basophils 0.9 % 0.0 - 1.0 11/10 [facility] HEMATOLOGY Segs-Bands # 4.6 K/CMM 1.5 - 8.1 11/10 [facility] HEMATOLOGY Segs 51.1 % 45.0 - 11/[address] [facility] HEMATOLOGY Lymphocytes 29.0 % 20.0 - 11/[address] [facility] HEMATOLOGY Monocytes # 0.9 K/CMM 0.0 - 0.8 11/10 [facility] HEMATOLOGY Eosinophils # 0.7 K/CMM 0.0 - 0.5 11/10 [facility] HEMATOLOGY Basophils # 0.1 K/CMM 0.0 - 0.2 11/10 [facility] HEMATOLOGY Lymphocytes # 2.6 K/CMM 1.0 - 5.5 11/10 [place] /2015 [facility] Spine-Outsi Spine-Outside EXAM: CT CERVICAL SPINE WITHOUT CONTRAST 11/09 - [facility] Consult Consult CT /2015 - [facility] CT Center DATE: 11/10/2016 1:06 AM [employer] Read by: Lincoln Sanchez Dictated Date/time: 11/10/16 01:26 Electronically Signed by: Lincoln Sanchez 11/10/16 07:13 FINAL REPORT INDICATION: Trauma. Outside hospital exam submitted for 2nd interpretation. COMPARISON: None. TECHNIQUE: Study performed at [facility] on 11/09/2016 at 2039 hours. Volumetric acquisition of the cervical spine without contrast. Axial, sagittal and coronal reconstructions. IV contrast: None. DLP: 356 mGy-cm FINDINGS: The spine is imaged from the skull base to the level of T2. No acute fracture or malalignment identified in the cervical spine. Multilevel disc degenerative changes and facet arthrosis is noted with associated spinal canal and neural foraminal narrowing No pre or paravertebral hematoma seen. IMPRESSION: 1. No acute fracture or malalignment in the cervical spine. 2. Advanced cervical spondylosis. CARDIAC CK-MB INDEX 1.3 0.0 - 2.5 01/04 [facility] [address] [facility] CARDIAC CK MB 1.2 ng/mL 0.5 - 3.6 01/04 [facility] [address] [facility] CARDIAC Total CK 93 unit/L - 01/04 [facility] ENZYM[facility] [address] [place] [address] CARDIAC Troponin-I null 0.00 - 01/04 [facility] [address] [facility] CARDIAC Total CK 58 unit/L - 01/04 [facility] ENZYMES /2013 [facility] CARDIAC Troponin-T null 0.000 - 01/04 [facility] ENZYMES 0.100 /2013 [facility] URINE AND UA Spec Grav >=1.050 <=1.030 01/04 [facility] *ABN* Center (01/04/2014 11:35:03 [facility]/[place]) URINE AND UA RBC 1 /HPF 0 - 2 01/[address] [facility] URINE AND UA WBC 1 /HPF 0 - 5 01/04 [facility] [address] [place] [address] URINE AND UA Sq Epi Occasional Few /LPF 01/04 [facility] STOOL /LPF /2013 [facility] URINE AND UA Leuk Est Negative Negative 01/04 [facility] (01/04/2014 11:35:03 [place]) [place] URINE AND UA Renal Epi 1 /LPF <=0 /LPF 01/04 [facility] URINE AND UA Mucus Few /LPF None Seen 01/04 [facility] /LPF [facility] URINE AND UA Color Yellow Yellow 01/04 [facility] Medical *NA* [place] (01/04/2014 11:35:03 [place]) URINE AND UA Ketones Negative Negative 01/04 [facility] mg/dL mg/dL /2013 [facility] URINE AND UA pH 6.5 5.0 - 8.0 01/04 [facility] URINE AND UA Turbidity Clear Clear 01/04 [facility] (01/04/2014 11:35:03 [place] [place] URINE AND UA Glucose Negative Negative 01/04 [facility] mg/dL mg/dL [facility] URINE AND UA Protein 50 mg/dL Negative 01/04 [facility] mg/dL [facility] URINE AND UA Nitrite Negative Negative 01/04 [facility] (01/04/2014 11:35:03 [place] [place] URINE AND UA 2.0 mg/dL 0.1 - 1.0 01/04 [facility] Urobilinogen /2013 [facility] URINE AND UA Blood Negative Negative 01/04 [facility] (01/04/2014 11:35:03 [facility]/[place] URINE AND UA Bili Negative Negative 01/04 [facility] Medical *NA* [place] (01/04/2014 11:35:03 [facility]) Brain/Neck Brain/Neck EXAM: CT angiogram of the NECK 01/04 - [facility] CTA CTA - Medical EXAM: CT angiogram of the HEAD Center DATE: January 04, 2014 Read by: Mason Deshpande Dictated Date/time: 01/04/14 11:58 Electronically Signed by: Mason Deshpande MD 01/04/14 12:10 FINAL REPORT INDICATION: Stroke. DISCUSSION: Rapid acquisition spiral images were obtained between the aortic arch and the cranial vertex during intravenous infusion of iodinated contrast for the purposes of CT angiography. 3-D CT angiographic i mages are created using maximum intensity projection technique. The source images are also presented for interpretation. Comparison is made to CT study performed 5 hours earlier the same day. There is atherosclerotic calcification of the aortic arch with minimal involvement of the great vessel origins. An eccentric low density plaque originates in the left carotid bifurcation and extends into the left ICA origin resulting in 60% diameter stenosis. There is mild calcified atherosclerotic change in the right ICA origin without stenosis. There is a smaller eccentric plaque in the distal left common carotid artery without stenosis. The cavernous carotid arteries are unremarkable. There is extrinsic compression on the right vertebral artery by hypertrophic C3-C4 facet joints. The intracranial vessels are unremarkable. There is no stenosis, occlusion , vasculopathy, aneurysm, or vascular malformation. The intracranial venous structures are normal. The soft tissues of the neck and other incidental structures are normal. IMPRESSION: Flow-limiting stenosis at the left ICA origin with soft plaque. No direct visual evidence of distal embolization at this time. ( All quantitative and qualitative assessments of the carotid bifurcation and proximal internal carotid artery stenosis are made at referencing the distal internal carotid artery.) Brain wo Brain wo EXAM: MRI BRAIN 01/04 [facility] contrast contrast MRI /2013 - [facility] DATE: Jan 04, 2014 09:23:34 AM Read by: Jason Hyman Dictated Date/time: 01/04/14 09:55 INDICATION: Weakness Electronically Signed by: Jason Hyman MD 01/04/14 10:04 FINAL REPORT TECHNIQUE: Sagittal T1, axial FLAIR, axial diffusion, axial T2, and axial T1-weighted images of the brain are obtained. FINDINGS: No areas of restricted diffusion are identified to indicate that the patient has had a recent infarct. Innumerable foci of T2 star dephasing are present throughout the parietal lobes and parasagittal occipital lobes with scattered foci also seen in the lateral temporal lobes, primarily posteriorly. Large r areas of T2 star dephasing correspond with regions of gliosis and encephalomalacia at the junction of left parietal and occipital lobes and in a region of remote infarction. Other parasagittal cortica l foci are seen in the occipital lobes bilaterally. The deep murray matter nuclei fail to demonstrate areas of remote hemorrhage. Other portions of the brain parenchyma do not demonstrate regions of cortical ischemia. Abnormal T2 signal is present in the periventricular frontal white matter in a pattern which is suggestive of watershed ischemia, particularly on the left. Overall, the amount of white matter microvascular ischemic change is moderate for age. Appropriate flow-voids are present in the vessels at the base of the brain. It appears that the patient has a origin or type origin of the left posterior cerebral artery from the internal ca rotid artery. A prominent posterior communicating artery is also seen on the right. Caliber of the basilar artery is maintained and flow-voids in the intradural segments of the vertebral arteries are un remarkable. There is no evidence of dural venous sinus thrombosis. Incidental imaging of the orbits, paranasal sinuses, skull, and skull base is unremarkable. IMPRESSION: 1. No acute or recent infarct. 2. Extensive remote hemorrhages involving the territories of the posterior cerebral arteries bilaterally. Concentration of these numerous small and larger areas of hemorrhage in a vascular distribution is concerning for underlying vasculitis. CHEM PANEL Phosphorus 3.4 mg/dL 2.5 - 4.5 01/04 [facility] CHEM PANEL eGFR 73 01/04 1Result Comment: The eGFR is calculated using the CKD-EPI formula. In most young, healthy individuals the eGFR will be >90 mL/ min/1.73m2. The eGFR declines with age. An eGFR of 60-89 may be normal in [facility] mL/min/1. some populations, particularly the elderly, for whom the CKD-EPI formula has not been extensively validated. Use of the eGFR is not recommended in the following populations: [address] Individuals with unstable creatinine concentrations, including patients and those with serious co-morbid conditions. Patients with extremes in muscle mass or diet. The data above are obtained from the National Kidney Disease Education Program (NKDEP) which additionally recommends that when the eGFR is used in patients with extremes of body mass index for purposes of drug dosing, the eGFR should be multiplied by the estimated BMI. CHEM PANEL CO2 26 meq/L 24 - 32 01/04 [facility] CHEM PANEL Calcium Lvl 8.3 mg/dL 8.5 - 10.5 01/04 [facility] CHEM PANEL Glucose Lvl 112 mg/dL 70 - 99 01/04 2Interpretive Data: Adult reference range values reflect the clinical guidelines of the [place] [employer]. [facility] CHEM PANEL Sodium Lvl 140 meq/L 135 - 145 01/04 [facility] CHEM PANEL BUN 22 mg/dL 7 - 01/04 [facility] CHEM PANEL Creatinine 1.0 mg/dL 0.5 - 1.4 01/04 [facility] Lvl /2013 [facility] CHEM PANEL Potassium Lvl 4.1 meq/L 3.5 - 5.1 01/04 [facility] CHEM PANEL Chloride Lvl 106 meq/L 95 - 109 01/04 [facility] CHEM PANEL AGAP 12.1 meq/L 10.0 - 01/[address] [facility] CHEM PANEL Magnesium Lvl 2.0 mg/dL 1.8 - 2.4 01/04 [facility] HEMATOLOGY RDW 14.3 % 11.5 - 01/[address] [facility] HEMATOLOGY Platelet 181 K/CMM 133 - 450 01/04 [facility] HEMATOLOGY Hgb 15.6 g/dL 14.0 - 01/[address] [facility] HEMATOLOGY RBC X 10x6 5.06 M/CMM 4.70 - 01/[address] [facility] HEMATOLOGY MCH 30.8 pg 27.0 - 01/[address] [facility] HEMATOLOGY WBC X 10x3 9.1 K/CMM 3.7 - 10.4 01/04 [facility] HEMATOLOGY MCHC 34.0 g/dL 32.0 - 01/[address] [facility] HEMATOLOGY Hct 45.8 % 42.0 - 01/[address] [facility] HEMATOLOGY MCV 90.6 fL 80.0 - 01/04 94.0 /2013 [facility] HEMATOLOGY MPV 9.0 fL 7.4 - 10.4 01/04 [facility] HEMATOLOGY Monocytes # 0.9 K/CMM 0.0 - 0.8 01/04 [facility] HEMATOLOGY Lymphocytes # 2.2 K/CMM 1.0 - 5.5 01/04 [facility] HEMATOLOGY Segs-Bands # 5.8 K/CMM 1.5 - 8.1 01/04 [facility] HEMATOLOGY Eosinophils # 0.2 K/CMM 0.0 - 0.5 01/04 [facility] HEMATOLOGY Monocytes 9.3 % 2.0 - 12.0 01/04 [facility] HEMATOLOGY Lymphocytes 24.3 % 20.0 - 01/04 [facility] 40.0 /2013 [facility] HEMATOLOGY Basophils 0.3 % 0.0 - 1.0 01/04 [facility] HEMATOLOGY Eosinophils 2.6 % 0.0 - 4.0 01/04 [facility] HEMATOLOGY Segs 63.5 % 45.0 - 01/04 [facility] 75.0 /2013 [facility] LIPIDS CHD Risk 7.17 4.00 - 01/04 [facility] 7.30 [facility] LIPIDS LDL 118 mg/dL <=99 mg/dL 01/04 [facility] (Calculated) [facility] LIPIDS Trig 118 mg/dL <=149 01/04 [facility] mg/dL [facility] LIPIDS Chol 165 mg/dL <=199 01/04 [facility] mg/dL [facility] LIPIDS HDL 23 mg/dL >=61 mg/dL 01/04 [facility] SPECIAL Hgb A1C 5.6 % <=5.6 % 01/04 [facility] CHEMISTRY [facility] CHEMISTRY Albumin Lvl 3.5 g/dL 3.5 - 5.0 04/[address] [facility] CHEMISTRY ALT 15 U/L 0 - 65 04/[address] [facility] CHEMISTRY Alk Phos 59 U/L 39 - 136 04/[address] [facility] CHEMISTRY Bili Total 0.7 mg/dL 0.2 - 1.3 04/[address] [facility] CHEMISTRY Bili Direct 0.2 mg/dL 0.0 - 0.3 04/[address] [facility] CHEMISTRY Total Protein 6.4 g/dL 6.4 - 8.4 04/[address] [facility] CHEMISTRY AST 7 U/L 0 - 37 04/[address] [facility] CHEMISTRY Bili Indirect 0.5 mg/dL 0.0 - 1.0 04/14 Normal [facility] CHEMISTRY A/G Ratio 1.2 0.7 - 1.6 04/14 Normal [facility] CHEMISTRY Globulin 2.9 g/dL 2.0 - 4.0 04/14 Normal [facility] CHEMISTRY Phosphorus 3.7 mg/dL 2.5 - 4.5 04/[address] [facility] CHEMISTRY Magnesium Lvl 2.2 mg/dL 1.8 - 2.4 04/[address] [facility] CHEMISTRY AGAP 10.9 meq/L 10.0 - 06 Normal [facility] 20.0 /2011 [facility] CHEMISTRY Calcium Lvl 8.1 mg/dL 8.5 - 10.5 04/[address] [facility] CHEMISTRY CO2 30 meq/L 24 - 32 04/[address] [facility] CHEMISTRY Creatinine 1.2 mg/dL 0.5 - 1.4 04/14 [facility] CHEMISTRY Glucose Lvl 113 mg/dL 70 - 99 06 HI 1Interpretive Data: Adult Medical reference Center range values reflect the clinical guidelinesof the [place] [employer]. CHEMISTRY BUN 12 mg/dL 7 - 22 04/14 Normal [facility] CHEMISTRY Sodium Lvl 139 meq/L 135 - 145 04/14 Normal [facility] CHEMISTRY Potassium Lvl 3.9 meq/L 3.5 - 5.1 04/14 [address] [facility] CHEMISTRY Chloride Lvl 102 meq/L 95 - 109 04/14 Normal [facility] HEMATOLOGY Segs 51.2 % 45.0 - 06 Normal [facility] 75.0 [facility] HEMATOLOGY Basophils 0.7 % 0.0 - 1.0 / Normal [facility] HEMATOLOGY Eosinophils 12.3 % 0.0 - 4.0 / [facility] HEMATOLOGY Monocytes 9.3 % 2.0 - 12.0 / Normal [facility] HEMATOLOGY Lymphocytes 26.5 % 20.0 - 06 Normal [facility] [address] [facility] HEMATOLOGY Basophils # 0.1 K/CMM 0.0 - 0.2 06/ Normal [facility] HEMATOLOGY Eosinophils # 0.9 K/CMM 0.0 - 0.5 06/ [facility] HEMATOLOGY Monocytes # 0.7 K/CMM 0.0 - 0.8 06/ Normal [facility] HEMATOLOGY Lymphocytes # 2.0 K/CMM 1.0 - 5.5 06/ Normal [facility] HEMATOLOGY Segs-Bands # 3.9 K/CMM 1.5 - 8.1 06/ Normal [facility] HEMATOLOGY MCHC 33.7 g/dL 32.0 - 06 Normal [facility] 36.0 /2011 [facility] HEMATOLOGY MCH 29.3 pg 27.0 - 04/14 Normal [facility] 31.0 [facility] [place] HEMATOLOGY MPV 8.7 fL 7.4 - 10.4 06 Normal [facility] [place] HEMATOLOGY MCV 86.9 fL 80.0 - 04/14 Normal [facility] 94.0 [facility] [place] HEMATOLOGY Platelet 161 K/CMM 133 - 450 06 Normal [facility] [place] HEMATOLOGY RDW 14.8 % 11.5 - 06 HI [facility] 14.5 /2011 [facility] HEMATOLOGY Hgb 13.4 g/dL 14.0 - 06 LOW [facility] 18.0 /2011 [facility] [place] HEMATOLOGY RBC 4.57 M/CMM 4.70 - 06 LOW [facility] 6.10 /2011 [facility] [place] HEMATOLOGY WBC 7.6 K/CMM 3.7 - 10.4 04/[address] [facility] HEMATOLOGY Hct 39.7 % 42.0 - 04/14 LOW [facility] 54.0 [facility] CHEMISTRY Glucose Lvl 141 mg/dL 70 - 99 04/13 [place] 2Interpretive Data: Adult Medical reference Center range values reflect the clinical guidelinesof the [place] [employer]. CHEMISTRY Creatinine 1.2 mg/dL 0.5 - 1.4 04/13 Normal [facility] Lvl [facility] CHEMISTRY BUN 14 mg/dL 7 - 22 04/[address] [facility] CHEMISTRY Potassium Lvl 4.3 meq/L 3.5 - 5.1 04/[address] [facility] CHEMISTRY Sodium Lvl 137 meq/L 135 - 145 04/[address] [facility] CHEMISTRY Chloride Lvl 102 meq/L 95 - 109 04/[address] [facility] CHEMISTRY Calcium Lvl 7.8 mg/dL 8.5 - 10.5 04/[address] [facility] CHEMISTRY CO2 25 meq/L 24 - 32 04/[address] [facility] CHEMISTRY AGAP 14.3 meq/L 10.0 - 04/13 Normal [facility] 20.0 [facility] HEMATOLOGY MCH 28.6 pg 27.0 - 04/13 Normal [facility] 31.0 [facility] HEMATOLOGY MCV 87.9 fL 80.0 - 04/13 Normal [facility] 94.0 /2011 [facility] HEMATOLOGY MPV 8.3 fL 7.4 - 10.4 06/ Normal [facility] HEMATOLOGY Platelet 169 K/CMM 133 - 450 06/ [facility] HEMATOLOGY MCHC 32.5 g/dL 32.0 - 06 Normal [facility] 36.0 /2011 [facility] [place] HEMATOLOGY RDW 14.4 % 11.5 - 06 Normal [facility] 14.5 [facility] HEMATOLOGY RBC 4.56 M/CMM 4.70 - 06 LOW [facility] 6.10 /2011 Medical [place] HEMATOLOGY WBC 7.9 K/CMM 3.7 - 10.4 06/ [facility] HEMATOLOGY Hct 40.1 % 42.0 - 06 [facility] [address] [facility] HEMATOLOGY Hgb 13.0 g/dL 14.0 - 06 [facility] 18.0 /2011 [facility] HEMATOLOGY Monocytes # 0.8 K/CMM 0.0 - 0.8 06/ [facility] HEMATOLOGY Eosinophils # 0.3 K/CMM 0.0 - 0.5 06/ [facility] HEMATOLOGY Basophils # 0.0 K/CMM 0.0 - 0.2 06/ [facility] HEMATOLOGY Basophils 0.5 % 0.0 - 1.0 06/ [facility] HEMATOLOGY Eosinophils 4.4 % 0.0 - 4.0 06/ [place] [facility] HEMATOLOGY Monocytes 10.0 % 2.0 - 12.0 06/ [facility] HEMATOLOGY Lymphocytes 18.8 % 20.0 - 06/ [facility] 40.0 /2011 [facility] HEMATOLOGY Lymphocytes # 1.5 K/CMM 1.0 - 5.5 06/ [facility] HEMATOLOGY Segs-Bands # 5.2 K/CMM 1.5 - 8.1 04/[address] [facility] HEMATOLOGY Segs 66.3 % 45.0 - 06/ [facility] 75.0 /2011 Medical [place] HEMATOLOGY Estimated % 4.5 % 0.0 - 7.5 06/ [facility] HEMATOLOGY R-time 0.7 min 0.4 - 0.7 04/[address] [facility] HEMATOLOGY Rapid TEG Citrated 04/13 NA [facility] Sample Type Whole Bld /2011 [facility] HEMATOLOGY [place] 0.6 min 04/[address] [facility] HEMATOLOGY ACT (TEG) 113 s 86 - 118 04/13 Normal [facility] HEMATOLOGY Angle 73 degrees 64 - 80 04/13 Normal [facility] HEMATOLOGY K-time 1.5 min 0.6 - 2.3 04/13 Normal [facility] HEMATOLOGY G-value 8.3 K d/sc 5.0 - 11.6 04/13 Normal [facility] HEMATOLOGY Max Amp 62 mm 52 - 71 04/13 Normal [facility] CHEMISTRY Sodium Lvl 140 meq/L 135 - 145 04/13 Normal [facility] CHEMISTRY Creatinine 1.1 mg/dL 0.5 - 1.4 04/13 Normal [facility] CHEMISTRY Calcium Lvl 8.6 mg/dL 8.5 - 10.5 04/13 Normal [facility] CHEMISTRY CO2 27 meq/L 24 - 32 04/13 Normal [facility] CHEMISTRY Glucose Lvl 105 mg/dL 70 - 99 04/13 HI 3Interpretive Data: Adult Medical reference Center range values reflect the clinical guidelinesof the [place] [employer]. CHEMISTRY BUN 15 mg/dL 7 - 22 04/13 Normal [facility] CHEMISTRY Potassium Lvl 4.1 meq/L 3.5 - 5.1 04/13 Normal [facility] CHEMISTRY Chloride Lvl 104 meq/L 95 - 109 04/13 Normal [facility] CHEMISTRY AGAP 13.1 meq/L 10.0 - 04/13 Normal [facility] [address].0 [facility] HEMATOLOGY Tot Cell Ct 100 04/13 NA [facility] HEMATOLOGY RBC Morph Normal 04/13 Normal [facility] (04/12/2012 20:03:00) Center HEMATOLOGY Plt Morph Normal 04/13 Normal [facility] (04/12/2012 20:03:00) Center HEMATOLOGY Atypical 0.0 % <=0.0 04/13 Normal [facility] Lymphs [facility] HEMATOLOGY Eosinophils 14.0 % 0.0 - 4.0 04/13 HI [facility] HEMATOLOGY Monocytes 5.0 % 2.0 - 12.0 / Normal /2011 [facility] HEMATOLOGY Lymphocytes 33.0 % 20.0 - 06/ Normal [place] 40.0 /2011 [facility] HEMATOLOGY Basophils 1.0 % 0.0 - 1.0 06/ Normal /2011 [facility] HEMATOLOGY Segs 47.0 % 45.0 - 06/ Normal [place] 75.0 /2011 [facility] HEMATOLOGY Basophils # 0.1 K/CMM 0.0 - 0.2 06/ Normal /2011 [facility] HEMATOLOGY Bands 0.0 % 0.0 - 11.0 06/ Normal /2011 [facility] HEMATOLOGY Lymphocytes # 3.1 K/CMM 1.0 - 5.5 06/ Normal [facility] HEMATOLOGY Eosinophils # 1.3 K/CMM 0.0 - 0.5 06/ [place] [facility] HEMATOLOGY Monocytes # 0.5 K/CMM 0.0 - 0.8 / Normal [facility] HEMATOLOGY Segs-Bands # 4.4 K/CMM 1.5 - 8.1 04/[address] [facility] HEMATOLOGY PTT 27.4 s 22.9 - 06 Normal 5Interpretive [facility] 35.8 /2011 Data: [facility] Range: 57 - 92 Seconds HEMATOLOGY INR 0.99 0.85 - 06 Normal 4Interpretive [facility] 1.17 Data: Medical RECOMMENDED Center RANGES FOR PROTIME INR: 2.0-3.0 for most medical and surgical thromboemboli c states. 2.5-3.5 for artificial heart valves and recurrent embolism.INR SHOULD BE USED ONLY FOR PATIENTS ON STABLE ANTICOAGULANT THERAPY. HEMATOLOGY PT 13.1 s 12.0 - 06/ Normal [facility] 14.7 /2011 [facility] HEMATOLOGY WBC 9.4 K/CMM 3.7 - 10.4 / Normal [facility] HEMATOLOGY Hct 44.0 % 42.0 - 06/ Normal [facility] 54.0 /2011 [facility] HEMATOLOGY Hgb 14.7 g/dL 14.0 - 06 Normal [place] 18.0 /2011 [facility] HEMATOLOGY RBC 5.13 M/CMM 4.70 - 06 Normal [facility] 6.10 /2011 [facility] HEMATOLOGY RDW 13.5 % 11.5 - 06/ Normal [facility] [place] 14.5 [facility] HEMATOLOGY Platelet 179 K/CMM 133 - 450 04/[address] [facility] HEMATOLOGY MCV 85.9 fL 80.0 - 04/13 Normal [facility] 94.0 [facility] HEMATOLOGY MCHC 33.5 g/dL 32.0 - 04/13 Normal [facility] 36.0 /2011 [facility] HEMATOLOGY MPV 8.4 fL 7.4 - 10.4 04/[address] [facility] HEMATOLOGY MCH 28.7 pg 27.0 - 04/13 Normal [facility] 31.0 [facility] Vital Signs Vital Sign Value Date Comments Source Systolic (mm Hg) 129 10/17/2017 [facility] Diastolic (mm Hg) 77 10/17/2017 [facility] Respitory Rate 26 10/17/2017 [facility] Systolic (mm Hg) 151 10/17/2017 [facility] Diastolic (mm Hg) 79 10/17/2017 [facility] Respitory Rate 29 10/17/2017 [facility] Respitory Rate 22 10/17/2017 [facility] Systolic (mm Hg) 118 10/17/2017 [facility] Diastolic (mm Hg) 84 10/17/2017 [facility] Temperature Oral (F) 97.2 F 10/17/2017 [facility] Temperature Oral (F) 97.3 F 10/17/2017 [facility] Temperature Oral (F) 96 F 10/17/2017 [facility] Height 190.5 cm 10/17/2017 [facility] BMI Calculated 22.55 10/17/2017 [facility] Weight 81.818 10/17/2017 [facility] Heart Rate 69 10/17/2017 [facility] Weight 84.091 10/17/2017 [facility] Systolic (mm Hg) 160 11/11/2016 [facility] Diastolic (mm Hg) 76 11/11/2016 [facility] Respitory Rate 15 11/11/2016 [facility] Systolic (mm Hg) 107 11/11/2016 [facility] Diastolic (mm Hg) 65 11/11/2016 [facility] Respitory Rate 14 11/11/2016 [facility] Temperature Oral (F) 97.5 F 11/11/2016 [facility] Systolic (mm Hg) 149 11/11/2016 [facility] Diastolic (mm Hg) 76 11/11/2016 [facility] Respitory Rate 17 11/11/2016 [facility] Temperature Oral (F) 97.2 F 11/11/2016 [facility] Temperature Oral (F) 97.7 F 11/11/2016 [facility] Weight 84.9 11/10/2016 [facility] Weight 85.455 11/10/2016 [facility] Height 190.5 cm 11/10/2016 [facility] BMI Calculated 23.55 11/10/2016 [facility] Weight 85.455 11/10/2016 [facility] BMI Calculated 23.55 11/10/2016 [facility] Height 190.5 cm 11/10/2016 [facility] Heart Rate 68 11/10/2016 [facility] Diastolic (mm Hg) 78 01/05/2014 [facility] Systolic (mm Hg) 137 01/05/2014 [facility] Respitory Rate 31 01/05/2014 [facility] Systolic (mm Hg) 159 01/05/2014 [facility] Diastolic (mm Hg) 87 01/05/2014 [facility] Respitory Rate 33 01/05/2014 [facility] Systolic (mm Hg) 121 01/05/2014 [facility] Diastolic (mm Hg) 54 01/05/2014 [facility] Respitory Rate 15 01/05/2014 [facility] Temperature Oral (F) 97.9 F 01/04/2014 [facility] Heart Rate 90 01/04/2014 [facility] Temperature Oral (F) 98.4 F 01/04/2014 [facility] Temperature Oral (F) 96.5 F 01/04/2014 [facility] Heart Rate 70 01/04/2014 [facility] Heart Rate 74 01/04/2014 [facility] Weight 90.909 01/04/2014 [facility] BMI Calculated 25.05 01/04/2014 [facility] Height 190.5 cm 01/04/2014 [facility] BMI Calculated 24.8 01/04/2014 [facility] Height 190.5 cm 01/04/2014 [facility] Weight 90.007 01/04/2014 [facility] Diastolic (mm Hg) 84 04/14/2012 [facility] Respitory Rate 18 04/14/2012 [facility] Systolic (mm Hg) 142 04/14/2012 [facility] Heart Rate 69 04/14/2012 [facility] Temperature Oral (F) 98.8 F 04/14/2012 [facility] Diastolic (mm Hg) 78 04/14/2012 [facility] Temperature Oral (F) 98.0 F 04/14/2012 [facility] Respitory Rate 18 04/14/2012 [facility] Heart Rate 70 04/14/2012 [facility] Systolic (mm Hg) 137 04/14/2012 [facility] Diastolic (mm Hg) 81 04/14/2012 [facility] Systolic (mm Hg) 139 04/14/2012 [facility] Respitory Rate 18 04/14/2012 [facility] Heart Rate 71 04/14/2012 [facility] Temperature Oral (F) 97.7 F 04/14/2012 [facility] Height 190.50 cm 04/13/2012 [facility] Weight 90.909 04/13/2012 [facility] Height 190.50 cm 04/13/2012 [facility] Weight 90.909 04/13/2012 [facility] Encounters Location Location Encounter Encounter Reason Attending ADM DC Status Source Details Type Number For Provider Date Date Visit [facility] Inpatient [id number] FINGER MAXIMO 04/13 04/14 Active [facility] Medical FX JORDAN /2011 [facility] Outpatient [id number] HOSPITAL JENI 05/07 Active [facility] Medical F/U MACHICAO /2011 [facility] Outpatient [id number] PORTAL JENI 05/14 Active [facility]2011 [facility] S [facility] Outpatient [id number] DDC-EGD JENI 05/22 Active [facility] Medical MACHICAO /2011 [facility] Inpatient [id number] 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 01/03 01/04 Active [facility] Medical CHEMIC MARCO /2013 [facility] Inpatient [id number] _MAPID:Alessandra Sameer 01/04 01/05 Jairo Castro [id number] [id number] Andrey /2013 [facility] [id number] [facility] Inpatient [id number] Rustam 11/10 11/11 Jairo Benavides Jr /2015 [facility] Emergency [id number] Monica 10/16 10/16 Jairo Lancaster /2016 [facility] Observation [id number] Rustam 10/17 10/17 [facility] Matthew Benavides Jr /2016 [facility] Outpatient [id number] ROGELIO Elias [facility] THROMBOS Center IS [facility] Outpatient [id number] HOSPITAL DOROTEO Elias [facility] F/U [facility] Procedures Procedure Code Date Perfomer Comments Source Cholecystectomy [id number] [facility] Hip replacement [id number] [facility]
--- OUTSIDE RECORDS SUMMARY | 2018-05-29 09:54 | XMS REPORT | CCD ---
:1935 Author Organization [facility] Care Team Providers Name Role Phone Ravi Carrizales Referring Provider Allergies, Adverse Reactions, Alerts Substance Reaction Status NKDA Active Problem List Condition Effective Dates Status Acute pain Active
--- OUTSIDE RECORDS SUMMARY | 2018-05-29 09:54 | XMS REPORT | Summary of Care ---
:1935 Author Organization [facility] Address [address] [place] [id number] Encounter HQ Encntr_alias(FIN) [id number] Date(s): 10/16/17 - 10/17/[address] Professional Services provided by [facility] [place] [address]- Discharge Disposition: Home or Self Care Attending Physician: Rustam Breen MD Admitting Physician: Rustam Breen MD Vital Signs Most recent to oldest 1 2 3 [Reference Range]: Height 190.5 cm (10/17/17 1:04 AM) Temperature Oral [96.4-99.1 97.2 DegF 97.3 DegF 96 DegF DegF] (10/17/17 12:00 PM) (10/17/17 8:00 AM) *LOW* (10/17/17 6:00 AM) Blood Pressure [90-140/60-90 129/77 mmHg 151/79 mmHg 118/84 mmHg mmHg] (10/17/17 2:02 PM) *HI* (10/17/17 12:02 PM) (10/17/17 1:00 PM) Respiratory Rate [14-20 26 BRMIN 29 BRMIN 22 BRMIN BRMIN] *HI* *HI* *HI* (10/17/17 2:02 PM) (10/17/17 1:00 PM) (10/17/17 12:02 PM) Peripheral Pulse Rate [60-100 69 bpm bpm] (10/16/17 7:00 PM) Weight 81.818 kg 84.091 kg (10/17/17 1:04 AM) (10/16/17 7:00 PM) Body Mass Index 22.55 m2 (10/17/17 1:04 AM) Problem List Condition Effective Dates Status Health Status Informant Acute pain(Confirmed) Active CVA (cerebral vascular Resolved accident)(Confirmed)1 HLD (hyperlipidemia)(Confirmed) Resolved HTN (hypertension)(Confirmed) Resolved Prostate cancer(Confirmed) Resolved TIA (transient ischemic Resolved attack)(Confirmed) 1R. sided defecits Allergies, Adverse Reactions, Alerts Substance Reaction Severity Status NKDA Active Medications acetaminophen-hydrocodone 325 mg-5 mg oral tablet 1 tab, Route: PO, Drug Form: TAB, Dosing Weight 84.091, kg, Q4H, PRN Pain Score 1-3, Start date: 10/17/17 0:53:00 [employer]ODUCTION [employer]NAGER, Duration: 30 day, Stop date: 11/16/17 0: 52:00 SAL[employer] AND PRODUCTION MANAGER Notes: (Same as: [place] 325/5) Do not exceed 4gm/day of acetaminophen. Start Date: 10/17/17 Stop Date: 10/17/17 Status: Discontinuedatorvastatin 40 mg, 1 tab, Route: PO, Drug form: TAB, Bedtime, Dosing Weight 84.091, kg, Start date: 10/17/17 21:00:00 [employer] AND PRODUCTION MANAGER, Duration: 30 day, Stop date: 11/15/17 21:00: 00 [employer] AND PRODUCTION MANAGER Notes: (Same as: Lipitor) Start Date: 10/17/17 Stop Date: 10/17/17 Status: Canceledcarvedilol 6.25 mg, 1 tab, Route: PO, Drug form: TAB, BID, Dosing Weight 84.091, kg, Start date: 10/17/17 9:00:00 SAL[employer] AND PRODUCTION MANAGER, Duration: 30 day, Stop date: 11/15/17 17:00:00 SALES AND PRODUCTION MANAGER Notes: Give with food. (Same As: Coreg) Start Date: 10/17/17 Stop Date: 10/17/17 Status: DiscontinuedDextrose 50% Syringe 12.5 gm, 25 mL, Route: IVP, Drug Form: INJ, Dosing Weight 84.091, kg, PRN, PRN Abnormal Lab Result, Start date: 10/17/17 0:53:00 SAL[employer] AND [employer]ODUCTION MANAGER, Duration: 30 day, Stop date: 11/16/17 0:52:00 SALES AND PRODUCTION MANAGER Start Date: 10/17/17 Stop Date: 10/17/17 Status: DiscontinuedDextrose 50% Syringe 25 gm, 50 mL, Route: IVP, Drug Form: INJ, Dosing Weight 84.091, kg, PRN, PRN Abnormal Lab Result, Start date: 10/17/17 0:53:00 SALES AND PRODUCTION MANAGER, Duration: 30 day, Stop date: 11/16/17 0:52:00 SALES AND PRODUCTION MANAGER Start Date: 10/17/17 Stop Date: 10/17/17 Status: DiscontinuedDextrose 50% Syringe 6.25 gm, 12.5 mL, Route: IVP, Drug Form: INJ, Dosing Weight 84.091, kg, PRN, PRN Abnormal Lab Result, Start date: 10/17/17 0:53:00 SALES AND PRODUCTION MANAGER, Duration: 30 day, Stop date: 11/16/17 0:52:00 SALES AND PRODUCTION MANAGER Start Date: 10/17/17 Stop Date: 10/17/17 Status: Discontinueddocusate 100 mg, 1 cap, Route: PO, Drug form: CAP, Q12H, Dosing Weight 84.091, kg, Start date: 10/17/17 9:00:00 SAL[employer] AND PRODUCTION MANAGER, Duration: 30 day, Stop date: 11/15/17 21:00:00 SALES AND PRODUCTION MANAGER Notes: (Same as: Colace) (Do Not Crush) Start Date: 10/17/17 Stop Date: 10/17/17 Status: Discontinuedheparin 5000 units/mL injectable solution 5,000 unit, 1 mL, Route: SUB-Q, Drug form: INJ, Q8H, Dosing Weight 81.818, kg, Start date: 10/18/17 8:00:00 SAL[employer] AND PRODUCTION MANAGER, Duration: 30 day, Stop date: 11/17/17 0:00:00 SALES AND PRODUCTION MANAGER Notes: porcine heparin Start Date: 10/18/17 Stop Date: 10/17/17 Status: CanceledhydrALAZINE 10 mg, 0.5 mL, Route: IV, Drug form: INJ, Q6H, Dosing Weight 84.091, kg, PRN Hypertension, Start date: 10/17/17 0:55:00 SAL[employer] AND PRODUCTION MANAGER, Duration: 30 day, Stop date: 02/28 0:54:00 SALES AND PRODUCTION MANAGER Notes: (Same as: Apresoline)Push over 5 minutes Start Date: 10/17/17 Stop Date: 10/17/17 Status: Discontinuedinsulin regular 100 units/mL human recombinant 3 unit, 0.03 mL, Route: SUB-Q, Drug form: SOLN, PRN, Dosing Weight 84.091, kg, PRN Abnormal Lab Result, Start date: 10/17/17 0:53:00 SALES AND PRODUCTION MANAGER, Duration: 30 day, Stop date: 11/16/17 0:52:00 SALES AND PRODUCTION MANAGER Notes: (Same as: Humulin R) Roll in palms of hands gently; Do not shake vigorously. "single patientuse only"(Restricted to patients requiring a dose &gt ; 60 units)WASTE: F/P - Black; E - Municipal Trash Bin Stable for 28 days at room temperatureExpires in days from Date Start Date: 10/17/17 Stop Date: 10/17/17 Status: Discontinuedinsulin regular 100 units/mL human recombinant 7 unit, 0.07 mL, Route: SUB-Q, Drug form: SOLN, PRN, Dosing Weight 84.091, kg, PRN Abnormal Lab Result, Start date: 10/17/17 0:53:00 SALES AND PRODUCTION MANAGER, Duration: 30 day, Stop date: 11/16/17 0:52:00 SALES AND PRODUCTION MANAGER Notes: (Same as: Humulin R) Roll in palms of hands gently; Do not shake vigorously. "single patientuse only"(Restricted to patients requiring a dose &gt ; 60 units)WASTE: F/P - Black; E - Municipal Trash Bin Stable for 28 days at room temperatureExpires in days from Date Start Date: 10/17/17 Stop Date: 10/17/17 Status: Discontinuedinsulin regular 100 units/mL human recombinant 5 unit, 0.05 mL, Route: SUB-Q, Drug form: SOLN, PRN, Dosing Weight 84.091, kg, PRN Abnormal Lab Result, Start date: 10/17/17 0:53:00 SALES AND PRODUCTION MANAGER, Duration: 30 day, Stop date: 11/16/17 0:52:00 SALES AND PRODUCTION MANAGER Notes: (Same as: Humulin R) Roll in palms of hands gently; Do not shake vigorously. "single patientuse only"(Restricted to patients requiring a dose &gt ; 60 units)WASTE: F/P - Black; E - Municipal Trash Bin Stable for 28 days at room temperatureExpires in days from Date Start Date: 10/17/17 Stop Date: 10/17/17 Status: Discontinuedlabetalol 10 mg, 2 mL, Route: IVP, Drug form: INJ, Q15Min, Dosing Weight 84.091, kg, PRN Hypertension, Start date: 10/17/17 0:55:00 SAL[employer] AND [employer]ODUCTION MANAGER, Duration: 30 day, Stop date: 02/28 0:54:00 SALES AND PRODUCTION MANAGER Start Date: 10/17/17 Stop Date: 10/17/17 Status: DiscontinuedlevETIRAcetam 500 mg, 1 tab, Route: PO, Drug form: TAB, Q12H, Dosing Weight 84.091, kg, Start date: 10/17/17 9:00:00 SALES AND PRODUCTION MANAGER, Duration: 30 day, Stop date: 11/15/17 21:00:00 SALES AND PRODUCTION MANAGER Notes: (Same as:Keppra) Start Date: 10/17/17 Stop Date: 10/17/17 Status: DiscontinuedlevETIRAcetam + Sodium Chloride 0.9% IV 100 mL 1,000 mg, Route: IVPB, ONCE, Dosing Weight 84.091, kg, Start date: 10/17/17 0:53 :00 SALES AND PRODUCTION MANAGER, Stop date: 10/17/17 0:53:00 SALES AND PRODUCTION MANAGER Notes: Same as KeppraMix with 100 mL NS, LR or D5W MEDICATION WASTE Product Size: 500 mgProduct Wasted: ___ mg Start Date: 10/17/17 Stop Date: 10/17/17 Status: CompletedlevETIRAcetam 500 mg oral tablet 500 mg=1 tab, PO, Q12H, # 12 tab, 0 Refill(s) Start Date: 10/17/17 Stop Date: 10/23/17 Status: Orderedlisinopril 5 mg, 1 tab, Route: PO, Drug form: TAB, Daily, Dosing Weight 84.091, kg, Start date: 10/17/17 9:00:00 SALES AND PRODUCTION MANAGER, Duration: 30 day, Stop date: 11/15/17 9:00:00 SALES AND PRODUCTION MANAGER Notes: (Same as: Arnoldo Storyripb) Start Date: 10/17/17 Stop Date: 10/17/17 Status: Discontinuedondansetron 4 mg, 2 mL, Route: IVP, Drug form: INJ, Q8H, Dosing Weight 84.091, kg, PRN Nausea & Vomiting, Start date: 10/17/17 0:53:00 SALES AND PRODUCTION MANAGER, Duration: 30 day, Stop date: 11/16/17 0:52:00 SALES AND PRODUCTION MANAGER Notes: (Same as: Tacos) MEDICATION WASTE Product Size: 4 mgProduct Wasted: ___ mg Start Date: 10/17/17 Stop Date: 10/17/17 Status: DiscontinuedSaline Flush 0.9% 10 ml, Route: IVP, Drug Form: INJ, Dosing Weight 84.091, kg, Q12H, Start date: 10/17/17 9:00:00 SALES AND PRODUCTION MANAGER,Duration: 30 day, Stop date: 11/15/17 21:00:00 SALES AND PRODUCTION MANAGER Notes: Same as: BD Posiflush Sterile Start Date: 10/17/17 Stop Date: 10/17/17 Status: DiscontinuedSaline Flush 0.9% 10 ml, Route: IVP, Drug Form: INJ, Dosing Weight 84.091, kg, PRN, PRN Line Flush , Start date: 10/17/17 0:53:00 SALES AND PRODUCTION MANAGER, Duration: 30 day, Stop date: 11/16/17 0:52: 00 SALES AND PRODUCTION MANAGER Notes: Same as: BD Posiflush Sterile Start Date: 10/17/17 Stop Date: 10/17/17 Status: Discontinuedsenna 8.6 mg, 1 tab, Route: PO, Drug Form: TAB, Dosing Weight 84.091, kg, Q12H, Start date: 10/17/17 9:00:00 SALES AND PRODUCTION MANAGER, Duration: 30 day, Stop date: 11/15/17 21:00:00 SALES AND PRODUCTION MANAGER Notes: (Same as: Senokot) Start Date: 10/17/17 Stop Date: 10/17/17 Status: Discontinuedsertraline 100 mg, 1 tab, Route: PO, Drug form: TAB, Daily, Dosing Weight 84.091, kg, Start date: 10/17/17 9:00:00 SALES AND PRODUCTION MANAGER, Duration: 30 day, Stop date: 11/15/17 9:00:00 SALES AND PRODUCTION MANAGER Notes: (Same as: Zoloft) Start Date: 10/17/17 Stop Date: 10/17/17 Status: DiscontinuedSodium Chloride 0.9% IV 1,000 mL 1,000 mL, Rate: 100 ml/hr, Infuse over: 10 hr, Route: IV, Dosing Weight 84.091 kg, Total Volume: 1,000, Start date: 10/17/17 0:53:00 SALES AND PRODUCTION MANAGER, Duration: 30 day, Stop date: 11/16/17 0:52:00 SALES AND PRODUCTION MANAGER, 2.11, m2 Start Date: 10/17/17 Stop Date: 10/17/17 Status: Discontinued Results ELECTROLYTES Most recent to oldest [Reference Range]: 1 Sodium Lvl [135-145 mEq/L] 141 mEq/L (10/16/17 8:05 PM) Potassium Lvl [3.5-5.1 mEq/L] 3.6 mEq/L (10/16/17 8:05 PM) Chloride Lvl [95-109 mEq/L] 108 mEq/L (10/16/17 8:05 PM) CO2 [24-32 mEq/L] 27 mEq/L (10/16/17 8:05 PM) AGAP [10.0-20.0 mEq/L] 9.6 mEq/L *LOW* (10/16/17 8:05 PM) CHEM PANEL Most recent to oldest [Reference Range]: 1 Creatinine Lvl [0.50-1.40 mg/dL] 0.86 mg/dL (10/16/17 8:05 PM) eGFR 82 mL/min/1.73m2 1 *NA* (10/16/17 8:05 PM) BUN [7-22 mg/dL] 16 mg/dL (10/16/17 8:05 PM) B/C Ratio [6-25] 19 (10/16/17 8:05 PM) Glucose Lvl [70-99 mg/dL] 107 mg/dL *HI* (10/16/17 8:05 PM) Total Protein [6.4-8.4 g/dL] 6.8 g/dL (10/16/17 8:05 PM) Albumin Lvl [3.5-5.0 g/dL] 3.2 g/dL *LOW* (10/16/17 8:05 PM) Globulin [2.7-4.2 g/dL] 3.6 g/dL (10/16/17 8:05 PM) A/G Ratio [0.7-1.6] 0.9 (10/16/17 8:05 PM) Calcium Lvl [8.5-10.5 mg/dL] 7.9 mg/dL *LOW* (10/16/17 8:05 PM) ALT [0-65 unit/L] 18 unit/L (10/16/17 8:05 PM) AST [0-37 unit/L] 23 unit/L (10/16/17 8:05 PM) Alk Phos [39-136 unit/L] 56 unit/L (10/16/17 8:05 PM) Bili Total [0.2-1.3 mg/dL] 1.2 mg/dL (10/16/17 8:05 PM) 1Result Comment: The eGFR is calculated using the CKD-EPI formula. In most young , healthy individualsthe eGFR will be >90 mL/min/1.73m2. The eGFR declines with age. An eGFR of 60-89 may be normal insome populations, particularly the elderly, for whom the CKD-EPI formula has not been extensively validated. Use of the eGFR is not recommended in the following populations: Individuals with unstable creatinine concentrations, including patients and those with serious co-morbid conditions. Patients with extremes in muscle mass or diet. The data above are obtained from the National Kidney Disease Education Program ( NKDEP) which additionally recommends that when the eGFR is used in patients with extremes of body mass index for purposesof drug dosing, the eGFR should be multiplied by the estimated BMI.HEMATOLOGY Most recent to oldest [Reference Range]: 1 WBC [3.7-10.4 K/CMM] 6.7 K/CMM (10/16/17 8:05 PM) RBC [4.70-6.10 M/CMM] 4.59 M/CMM *LOW* (10/16/17 8:05 PM) Hgb [14.0-18.0 g/dL] 14.5 g/dL (10/16/17 8:05 PM) Hct [42.0-54.0 %] 42.1 % (10/16/17 8:05 PM) MCV [80.0-94.0 fL] 91.8 fL (10/16/17 8:05 PM) MCH [27.0-31.0 pg] 31.6 pg *HI* (10/16/17 8:05 PM) MCHC [32.0-36.0 g/dL] 34.5 g/dL (10/16/17 8:05 PM) RDW [11.5-14.5 %] 13.6 % (10/16/17 8:05 PM) Platelet [133-450 K/CMM] 152 K/CMM (10/16/17 8:05 PM) MPV [7.4-10.4 fL] 8.8 fL (10/16/17 8:05 PM) Segs [45.0-75.0 %] 48.7 % (10/16/17 8:05 PM) Lymphocytes [20.0-40.0 %] 32.7 % (10/16/17 8:05 PM) Monocytes [2.0-12.0 %] 8.6 % (10/16/17 8:05 PM) Eosinophils [0.0-4.0 %] 8.7 % *HI* (10/16/17 8:05 PM) Basophils [0.0-1.0 %] 1.3 % *HI* (10/16/17 8:05 PM) Segs-Bands # [1.5-8.1 K/CMM] 3.3 K/CMM (10/16/17 8:05 PM) Lymphocytes # [1.0-5.5 K/CMM] 2.2 K/CMM (10/16/17 8:05 PM) Monocytes # [0.0-0.8 K/CMM] 0.6 K/CMM (10/16/17 8:05 PM) Eosinophils # [0.0-0.5 K/CMM] 0.6 K/CMM *HI* (10/16/17 8:05 PM) Basophils # [0.0-0.2 K/CMM] 0.1 K/CMM (10/16/17 8:05 PM) PT [12.0-14.7 seconds] 13.4 seconds (10/16/17 8:05 PM) INR [0.85-1.17] 1.02 (10/16/17 8:05 PM) PTT [22.9-35.8 seconds] 27.9 seconds (10/16/17 8:05 PM) Immunizations Given and Recorded Vaccine Date Status Refusal Reason pneumococcal 13-valent vaccine 11/10/16 Given Procedures Procedure Date Related Diagnosis Body Site Cholecystectomy Hip replacement Social History Social History Type Response Substance Abuse Use: None. Alcohol Never Smoking Status Never smoker; Type: Cigarettes; Exposure to Tobacco Smoke None; Cigarette Smoking Last 365 Days No; Reg Smoking Cessation Counseling No Assessment and Plan No data available for this section
--- OUTSIDE RECORDS SUMMARY | 2018-05-29 09:54 | XMS REPORT | Summary of Care ---
:1935 Author Organization [facility] Address [address] [place] [id number]- Encounter HQ Roselyn_evangelista(FIN) [id number] Date(s): 11/10/16 - 11/11/[address] Professional Services provided by [facility] [place] [address]- Discharge Disposition: Home or Self Care Attending Physician: Ezequiel Timmons MD Admitting Physician: Rustam Breen MD Referring Physician: Donald Harp MD Vital Signs Most recent to oldest 1 2 3 [Reference Range]: Height 190.5 cm 190.5 cm (11/10/16 4:07 AM) (11/10/16 12:25 AM) Temperature Oral 97.5 DegF 97.2 DegF 97.7 DegF [96.4-99.1 DegF] (11/11/16 8:00 AM) (11/11/16 4:00 AM) (11/11/16 12:00 AM) Blood Pressure 160/76 mmHg 107/65 mmHg 149/76 mmHg [90-140/60-90 mmHg] *HI* (11/11/16 8:00 AM) *HI* (11/11/16 9:00 AM) (11/11/16 7:30 AM) Respiratory Rate [14-20 15 BRMIN 14 BRMIN 17 BRMIN BRMIN] (11/11/16 9:00 AM) (11/11/16 8:00 AM) (11/11/16 7:30 AM) Peripheral Pulse Rate 68 bpm [60-100 bpm] (11/10/16 12:25 AM) Weight 84.9 kg 85.455 kg 85.455 kg (11/10/16 3:50 PM) (11/10/16 4:07 AM) (11/10/16 12:25 AM) Body Mass Index 23.55 m2 23.55 m2 (11/10/16 4:07 AM) (11/10/16 12:25 AM) Problem List Condition Effective Dates Status Health Status Informant Acute pain(Confirmed) Active CVA (cerebral vascular Resolved accident)(Confirmed)1 HLD (hyperlipidemia)(Confirmed) Resolved HTN (hypertension)(Confirmed) Resolved Prostate cancer(Confirmed) Resolved TIA (transient ischemic Resolved attack)(Confirmed) 1R. sided defecits Allergies, Adverse Reactions, Alerts Substance Reaction Severity Status NKDA Active Medications atorvastatin 40 mg oral tablet 40 mg=1 tab, PO, Bedtime, # 30 tab Start Date: 11/10/16 Status: Orderedbisacodyl 10 mg, 1 supp, Route: AR, Drug form: SUPP, Daily, Dosing Weight 85.455, kg, PRN Constipation, Start date: 11/10/16 2:06:00 [employer], Duration: 30 day, Stop date: 2:05:00 [employer] Notes: (Same As: Dulcolax, Bisco-Lax) Start Date: 11/10/16 Stop Date: 11/11/16 Status: Discontinuedcarvedilol 6.25 mg oral tablet 6.25 mg=1 tab, PO, BID, # 180 tab, 0 Refill(s) Start Date: 11/10/16 Status: Ordereddocusate sodium 100 mg oral capsule 100 mg, 1 cap, Route: PO, Drug form: CAP, Q12H, Dosing Weight 85.455, kg, Start date: 11/10/16 9:00:00 [employer], Duration: 30 day, Stop date: 12/09/16 21:00:00 [employer] Notes: (Same as: Colace) (Do Not Crush) Start Date: 11/10/16 Stop Date: 11/11/16 Status: Discontinuedfamotidine 20 mg, 2 mL, Route: IVP, Drug form: INJ, Q12H, Dosing Weight 85.455, kg, Start date: 11/10/16 9:00:00 [employer], Duration: 30 day, Stop date: 12/09/16 21:00:00 [employer] Notes: (Same as: Pepcid)Can be dilute in 5-10cc NS IVP: Slow IV push over at least 2 minutes. Start Date: 11/10/16 Stop Date: 11/10/16 Status: CanceledInsulin regular 4 unit, 0.04 mL, Route: SUB-Q, Drug form: SOLN, Sliding Scale, Dosing Weight 85.455, kg, PRN Blood Glucose Results, Start date: 11/10/16 2:06:00 [employer], Duration: 30 day, Stop date: 12/10/16 2:05:00 [employer] Notes: (Same as: Humulin R) Roll in palms of hands gently; Do not shake vigorously. "single patientuse only"(Restricted to patients requiring a dose > 60 units)WASTE: F/P - Black; E - Municipal Trash Bin Stable for 28 days at room temperatureExpires in days from Date Start Date: 11/10/16 Stop Date: 11/11/16 Status: DiscontinuedInsulin regular 2 unit, 0.02 mL, Route: SUB-Q, Drug form: SOLN, Sliding Scale, Dosing Weight 85.455, kg, PRN Blood Glucose Results, Start date: 11/10/16 2:06:00 [employer], Duration: 30 day, Stop date: 12/10/16 2:05:00 [employer] Notes: (Same as: Humulin R) Roll in palms of hands gently; Do not shake vigorously. "single patientuse only"(Restricted to patients requiring a dose > 60 units)WASTE: F/P - Black; E - Municipal Trash Bin Stable for 28 days at room temperatureExpires in days from Date Start Date: 11/10/16 Stop Date: 11/11/16 Status: DiscontinuedInsulin regular 8 unit, 0.08 mL, Route: SUB-Q, Drug form: SOLN, Sliding Scale, Dosing Weight 85.455, kg, PRN Blood Glucose Results, Start date: 11/10/16 2:06:00 [employer], Duration: 30 day, Stop date: 12/10/16 2:05:00 [employer] Notes: (Same as: Humulin R) Roll in palms of hands gently; Do not shake vigorously. "single patientuse only"(Restricted to patients requiring a dose > 60 units)WASTE: F/P - Black; E - Municipal Trash Bin Stable for 28 days at room temperatureExpires in days from Date Start Date: 11/10/16 Stop Date: 11/11/16 Status: DiscontinuedInsulin regular 6 unit, 0.06 mL, Route: SUB-Q, Drug form: SOLN, Sliding Scale, Dosing Weight 85.455, kg, PRN Blood Glucose Results, Start date: 11/10/16 2:06:00 [employer], Duration: 30 day, Stop date: 12/10/16 2:05:00 [employer] Notes: (Same as: Humulin R) Roll in palms of hands gently; Do not shake vigorously. "single patientuse only"(Restricted to patients requiring a dose > 60 units)WASTE: F/P - Black; E - Municipal Trash Bin Stable for 28 days at room temperatureExpires in days from Date Start Date: 11/10/16 Stop Date: 11/11/16 Status: DiscontinuedInsulin regular 10 unit, 0.1 mL, Route: SUB-Q, Drug form: SOLN, Sliding Scale, Dosing Weight 85.455, kg, PRN Blood Glucose Results, Start date: 11/10/16 2:06:00 [employer], Duration: 30 day, Stop date: 12/10/16 2:05:00 [employer] Notes: (Same as: Humulin R) Roll in palms of hands gently; Do not shake vigorously. "single patientuse only"(Restricted to patients requiring a dose > 60 units)WASTE: F/P - Black; E - Municipal Trash Bin Stable for 28 days at room temperatureExpires in days from Date Start Date: 11/10/16 Stop Date: 11/11/16 Status: DiscontinuedKeppra + sodium chloride 0.9% 100 mL INJ (for IV set) 100 mL 1,000 mg, Route: IV, ONCE, Dosing Weight 85.455, kg, Priority: STAT, Start date : 11/10/16 1:28:00 [employer], Stop date: 11/10/16 1:28:00 [employer] Notes: Same as KeppraMix with 100 mL NS, LR or D5W MEDICATION WASTE Product Size: 500 mgProduct Wasted: ___ mg Start Date: 11/10/16 Stop Date: 11/10/16 Status: Completedlabetalol 10 mg, 2 mL, Route: IVP, Drug form: INJ, Q15Min, Dosing Weight 85.455, kg, PRN Hypertension, Start date: 11/10/16 2:06:00 [employer], Duration: 3 doses or times, Stop date: Limited # of times Start Date: 11/10/16 Stop Date: 11/11/16 Status: DiscontinuedlevETIRAcetam 500 mg, 1 tab, Route: PO, Drug form: TAB, Q12H, Dosing Weight 85.455, kg, Start date: 11/10/16 9:00:00 [employer], Duration: 7 day, Stop date: 11/16/16 21:00:00 [employer] Notes: (Same as:Keppra) Start Date: 11/10/16 Stop Date: 11/11/16 Status: DiscontinuedlevETIRAcetam 500 mg oral tablet 500 mg=1 tab, PO, Q12H, # 12 tab, 0 Refill(s) Start Date: 11/11/16 Stop Date: 11/17/16 Status: Orderedlisinopril 5 mg oral tablet 5 mg=1 tab, PO, Daily, # 30 tab Start Date: 11/10/16 Status: OrderedMiniprin 81 mg oral enteric coated tablet 81 mg=1 tab, PO, Daily, # 30 tab, 3 Refill(s) Start Date: 11/11/16 Stop Date: 03/11/17 Status: Orderedmorphine Sulfate 1 mg, 0.5 mL, Route: IVP, Drug form: INJ, Q4H, Dosing Weight 85.455, kg, PRN Pain Score 7-10, Start date: 11/10/16 2:06:00 [employer], Duration: 30 day, Stop date: 12/10/16 2:05:00 [employer] Notes: (Same as:MORPhine Sulfate) Start Date: 11/10/16 Stop Date: 11/10/16 Status: DiscontinuedNorco 5/325 oral tablet 1 tab, Route: PO, Drug Form: TAB, Dosing Weight 85.455, kg, Q6H, PRN Pain Score 4-6, STAT, Start date: 11/10/16 2:04:00 [employer], Duration: 30 day, Stop date: 2:03:00 [employer] Notes: (Same as: [place] 325/5) Do not exceed 4gm/day of acetaminophen. Start Date: 11/10/16 Stop Date: 11/10/16 Status: Discontinuedondansetron 4 mg, 2 mL, Route: IVP, Drug form: INJ, Q8H, Dosing Weight 85.455, kg, PRN Nausea & Vomiting, Start date: 11/10/16 2:06:00 [employer], Duration: 30 day, Stop date: 12/10/16 2:05:00 [employer] Notes: (Same as: Tacos) MEDICATION WASTE Product Size: 4 mgProduct Wasted: ___ mg Start Date: 11/10/16 Stop Date: 11/11/16 Status: Discontinuedpneumococcal 13-valent vaccine 0.5 mL, Route: IM, Drug Form: INJ, Daily, Start date: 11/10/16 9:00:00 [employer], Duration: 1 doses or times, Stop date: 11/10/16 9:00:00 [employer] Notes: Lightly roll vial (DO NOT SHAKE) before administration. (Same as: Corrina 13) Start Date: 11/10/16 Stop Date: 11/10/16 Status: CompletedSaline Flush 0.9% 10 ml, Route: IVP, Drug Form: INJ, Dosing Weight 85.455, kg, PRN, PRN Line Flush , Start date: 11/10/16 2:06:00 [employer], Duration: 30 day, Stop date: 12/10/16 2:05: 00 [employer] Notes: Same as: BD Posiflush Sterile Start Date: 11/10/16 Stop Date: 11/11/16 Status: DiscontinuedSaline Flush 0.9% 10 ml, Route: IVP, Drug Form: INJ, Dosing Weight 85.455, kg, Q12H, Start date: 11/10/16 9:00:00 [employer],Duration: 30 day, Stop date: 12/09/16 21:00:00 [employer] Notes: Same as: BD Posiflush Sterile Start Date: 11/10/16 Stop Date: 11/11/16 Status: DiscontinuedSaline Flush 0.9% 10 mL, Route: IVP, Drug Form: INJ, Dosing Weight 85.455, kg, PRN, PRN Line Flush , Start date: 11/10/16 0:47:00 [employer], Duration: 30 day, Stop date: 12/10/16 0:46: 00 [employer] Notes: Same as: BD Posiflush Sterile Start Date: 11/10/16 Stop Date: 11/11/16 Status: Discontinuedsenna 8.6 mg, 1 tab, Route: PO, Drug Form: TAB, Dosing Weight 85.455, kg, Q12H, Start date: 11/10/16 9:00:00 [employer], Duration: 30 day, Stop date: 12/09/16 21:00:00 [employer] Notes: (Same as: [place]) Start Date: 11/10/16 Stop Date: 11/11/16 Status: Discontinuedsertraline 100 mg oral tablet 100 mg=1 tab, PO, Daily, # 30 tab Start Date: 11/10/16 Status: Orderedsodium chloride 0.9% 1000 ml INJ 1,000 mL 1,000 mL, Rate: 75 ml/hr, Infuse over: 13.3 hr, Route: IV, Dosing Weight 85.455 kg, Total Volume: 1,000, Start date: 11/10/16 1:28:00 [employer], Duration: 30 day, Stop date: 12/10/16 1:27:00 [employer] Start Date: 11/10/16 Stop Date: 11/11/16 Status: Discontinuedtramadol 50 mg oral tablet 50 mg, 1 tab, Route: PO, Drug form: TAB, Q6H, Dosing Weight 85.455, kg, PRN Pain Score 4-6, Start date: 11/10/16 5:32:00 [employer], Duration: 30 day, Stop date: 12/10/16 5:31:00 [employer] Notes: Not to exceed 400mg/day. (Same As: Gaylam) Start Date: 11/10/16 Stop Date: 11/11/16 Status: DiscontinuedTylenol 650 mg, 2 tab, Route: PO, Drug form: TAB, Q6H, Dosing Weight 85.455, kg, PRN Pain 1-3/Temp > 100.4 F, Priority: STAT, Start date: 11/10/16 2:03:00 [employer], Duration: 30 day, Stop date: 12/10/16 2:02:00 [employer] Notes: Do not exceed 4 gm/day. (Same as: Tylenol) Start Date: 11/10/16 Stop Date: 11/11/16 Status: Discontinued Results BLOOD BANK RESULTS Most recent to oldest [Reference Range]: 1 2 3 ABO/Rh A POS *Unknown* (11/10/16 3:12 AM) Antibody Scrn Negative (11/10/16 3:12 AM) ELECTROLYTES Most recent to oldest [Reference Range]: 1 2 3 Sodium Lvl [135-145 mEq/L] 141 mEq/L (11/10/16 12:51 AM) Potassium Lvl [3.5-5.1 mEq/L] 4.4 mEq/L (11/10/16 12:51 AM) Chloride Lvl [95-109 mEq/L] 105 mEq/L (11/10/16 12:51 AM) CO2 [24-32 mEq/L] 28 mEq/L (11/10/16 12:51 AM) AGAP [10.0-20.0 mEq/L] 12.4 mEq/L (11/10/16 12:51 AM) CHEM PANEL Most recent to oldest [Reference Range]: 1 2 3 Creatinine Lvl [0.50-1.40 mg/dL] 1.05 mg/dL (11/10/16 12:51 AM) eGFR 67 mL/min/1.73m2 1 *NA* (11/10/16 12:51 AM) BUN [7-22 mg/dL] 19 mg/dL (11/10/16 12:51 AM) Glucose Lvl [70-99 mg/dL] 106 mg/dL *HI* (11/10/16 12:51 AM) Calcium Lvl [8.5-10.5 mg/dL] 8.9 mg/dL (11/10/16 12:51 AM) Lactic Acid Lvl [0.5-2.2 mMol/L] 0.9 mMol/L (11/10/16 12:51 AM) Lactic Acid WB [0.5-2.2 mmol/L] 1.2 mmol/L (11/10/16 12:51 AM) 1Result Comment: The eGFR is calculated using the CKD-EPI formula. In most young , healthy individualsthe eGFR will be >90 mL/min/1.73m2. The eGFR declines with age. An eGFR of 60-89 may be normal in some populations, particularly the elderly, for whom [...] eGFR should be multiplied by the estimated BMI.CARDIAC ENZYMES Most recent to oldest 1 2 3 [Reference Range]: Total CK [12-191 unit/L] 113 unit/L 102 unit/L 92 unit/L (11/10/16 5:33 PM) (11/10/16 11:20 AM) (11/10/16 6:27 AM) CK MB [0.5-3.6 ng/mL] 1.8 ng/mL 2.1 ng/mL 1.7 ng/mL (11/10/16 5:33 PM) (11/10/16 11:20 AM) (11/10/16 6:27 AM) CK MB Index [0.0-2.5] 1.6 2.1 1.8 (11/10/16 5:33 PM) (11/10/16 11:20 AM) (11/10/16 6:27 AM) Troponin-T [0.000-0.100 <0.010 ng/mL <0.010 ng/mL ng/mL] (11/10/16 11:20 AM) (11/10/16 6:27 AM) Troponin-I [0.00-0.40 <0.02 ng/mL <0.02 ng/mL <0.02 ng/mL ng/mL] (11/10/16 5:33 PM) (11/10/16 11:20 AM) (11/10/16 6:27 AM) DRUG SCREEN Most recent to oldest [Reference Range]: 1 2 3 U Amph Scr [Negative] Negative *NA* (11/10/16 5:32 AM) U Danyelle Scr [Negative] Negative *NA* (11/10/16 5:32 AM) U Benzodia Scr [Negative] Negative *NA* (11/10/16 5:32 AM) U Cocaine Scr [Negative] Negative *NA* (11/10/16 5:32 AM) U Opiate Scr [Negative] Negative *NA* (11/10/16 5:32 AM) U Phencyc Scr [Negative] Negative *NA* (11/10/16 5:32 AM) U Cannab Scr [Negative] Negative *NA* (11/10/16 5:32 AM) UDS Note See Note *NA* (11/10/16 5:32 AM) TOXICOLOGY Most recent to oldest [Reference Range]: 1 2 3 Etoh (%) <.003 % *NA* (11/10/16 12:51 AM) Ethanol Lvl <3 mg/dL *NA* (11/10/16 12:51 AM) URINE AND STOOL Most recent to oldest [Reference Range]: 1 2 3 UA Turbidity [Clear] Clear (11/10/16 5:32 AM) UA Color [Yellow] Light Yellow (11/10/16 5:32 AM) UA pH [5.0-8.0] 7.5 (11/10/16 5:32 AM) UA Spec Grav [<=1.030] 1.007 (11/10/16 5:32 AM) UA Glucose [Negative] Negative (11/10/16 5:32 AM) UA Blood [Negative] Negative (11/10/16 5:32 AM) UA Ketones [Negative] Negative (11/10/16 5:32 AM) UA Protein [Negative] Negative (11/10/16 5:32 AM) UA Urobilinogen [0.1-1.0 mg/dL] 0.2 mg/dL (11/10/16 5:32 AM) UA Bili [Negative] Negative (11/10/16 5:32 AM) UA Leuk Est [Negative] Negative (11/10/16 5:32 AM) UA Nitrite [Negative] Negative (11/10/16 5:32 AM) UA WBC [0-5 /HPF] 3 /HPF (11/10/16 5:32 AM) UA Sq Epi [Few /LPF] Occasional /LPF (11/10/16 5:32 AM) UA Mucus [None Seen /LPF] Few /LPF (11/10/16 5:32 AM) HEMATOLOGY Most recent to oldest [Reference Range]: 1 2 3 WBC [3.7-10.4 K/CMM] 8.9 K/CMM (11/10/16 12:51 AM) RBC [4.70-6.10 M/CMM] 4.97 M/CMM (11/10/16 12:51 AM) Hgb [14.0-18.0 g/dL] 15.5 g/dL (11/10/16 12:51 AM) Hct [42.0-54.0 %] 45.5 % (11/10/16 12:51 AM) MCV [80.0-94.0 fL] 91.5 fL (11/10/16 12:51 AM) MCH [27.0-31.0 pg] 31.2 pg *HI* (11/10/16 12:51 AM) MCHC [32.0-36.0 g/dL] 34.1 g/dL (11/10/16 12:51 AM) RDW [11.5-14.5 %] 13.6 % (11/10/16 12:51 AM) Platelet [133-450 K/CMM] 160 K/CMM (11/10/16 12:51 AM) MPV [7.4-10.4 fL] 8.9 fL (11/10/16 12:51 AM) Segs [45.0-75.0 %] 51.1 % (11/10/16 12:51 AM) Lymphocytes [20.0-40.0 %] 29.0 % (11/10/16 12:51 AM) Monocytes [2.0-12.0 %] 10.7 % (11/10/16 12:51 AM) Eosinophils [0.0-4.0 %] 8.3 % *HI* (11/10/16 12:51 AM) Basophils [0.0-1.0 %] 0.9 % (11/10/16 12:51 AM) Segs-Bands # [1.5-8.1 K/CMM] 4.6 K/CMM (11/10/16 12:51 AM) Lymphocytes # [1.0-5.5 K/CMM] 2.6 K/CMM (11/10/16 12:51 AM) Monocytes # [0.0-0.8 K/CMM] 0.9 K/CMM *HI* (11/10/16 12:51 AM) Eosinophils # [0.0-0.5 K/CMM] 0.7 K/CMM *HI* (11/10/16 12:51 AM) Basophils # [0.0-0.2 K/CMM] 0.1 K/CMM (11/10/16 12:51 AM) ACT (TEG) Rapid [86-118 seconds] 113 seconds (11/10/16 12:51 AM) Split [place] Rapid 0.6 minutes *NA* (11/10/16 12:51 AM) R-time Rapid [0.4-0.7 minutes] 0.7 minutes (11/10/16 12:51 AM) K-time Rapid [0.6-2.3 minutes] 1.7 minutes (11/10/16 12:51 AM) Angle Rapid [64-80 degrees] 73 degrees (11/10/16 12:51 AM) Max Amplitude Rapid [52-71 mm] 58 mm (11/10/16 12:51 AM) G-value Rapid [5.0-11.6 K d/sc] 7.0 K d/sc (11/10/16 12:51 AM) Estimated % Lysis Rapid [0.0-7.5 %] 1.2 % (11/10/16 12:51 AM) Immunizations Given and Recorded Vaccine Date Status Refusal Reason pneumococcal 13-valent vaccine 11/10/16 Given Procedures Procedure Date Related Diagnosis Body Site Cholecystectomy Hip replacement Social History Social History Type Response Substance Abuse Use: None. Alcohol Never Smoking Status Never smoker; Exposure to Tobacco Smoke None; Cigarette Smoking Last 365 Days No; Reg Smoking Cessation Counseling No Assessment and Plan No data available for this section
--- OUTSIDE RECORDS SUMMARY | 2018-05-29 09:54 | XMS REPORT | CCD ---
:1935 Author Organization [facility] Care Team Providers Name Role Phone Santiago Rutledge Iraheta Consulting Provider Reji Baez Referring Provider Allergies, Adverse Reactions, Alerts Substance Reaction Status NKDA Active Problem List Condition Effective Dates Status Acute pain Active Medications Medication Instructions Start Date End Date Status morphine Sulfate 2 mg, 1 mL, Route: IV, 04/13/2012 04/14/2012 Discontinued Drug form: INJ, Q4H, PRN Pain, Start date: 04/13/12 9:01:00, Duration: 30 day, Stop date: 05/13/12 9:00:00 acetaminophen-hydrocodone 1 tab, Route: PO, Drug 04/13/2012 04/14/2012 Discontinued 325 mg-10 mg oral tablet Form: TAB, Q4H, Start date: 04/13/12 9:00:00, Duration: 30 day, Stop date: 05/13/12 8:00:00 fosphenytoin 1,000 mg, 20 mL, Route: 04/12/2012 04/13/2012 Completed IVPB, ONCE, Priority: STAT, Start date: 04/12/12 22:12:00, Stop date: 04/12/12 22:12:00 Dilantin 100 mg oral 100 mg, 1 cap, Route: PO, 04/13/2012 04/13/2012 Discontinued capsule, extended release Drug form: ERCAP, TID, Start date: 04/13/12 9:00:00, Duration: 7 day, Stop date: 04/19/12 17:00:00 D5W 1/2NS 1,000 mL 1,000 mL, Rate: 100 04/13/2012 04/14/2012 Discontinued ml/hr, Infuse over: 10 hr, Route: IV, Dosing Weight 91 kg, Total Volume: 1,000, Priority: STAT, Start date: 04/13/12 1:48:00, Duration: 30 day, Stop date: 05/13/12 1:47:00 Lovenox 30 mg, 0.3 mL, Route: 04/14/2012 04/13/2012 Canceled SUB-Q, Drug form: INJ, Q12H, Start date: 04/14/12 9:00:00, Duration: 30 day, Stop date: 05/13/12 21:00:00 aspirin 81 mg tablet, Substitution Allowed 04/12/2012 04/14/2012 Discontinued chewable citalopram Substitution Allowed 04/12/2012 Ordered Sodium Chloride 0.9% 1,000 mL, Rate: 100 04/13/2012 04/13/2012 Discontinued (Bolus) IV 1,000 mL ml/hr, Infuse over: 10 hr, Route: IV, Dosing Weight 90.909 kg, Total Volume: 1,000, Bolus Dose, Priority: STAT, Start date: 04/13/12 1:24:00, Duration: 1 doses or times, Stop date: 04/13/12 11:23:00 cefazolin 1 gm, Route: IVPB, Drug 04/13/2012 04/13/2012 Completed form: PDR/INJ, ONCE, Priority: STAT, Start date: 04/13/12 1:23:00, Stop date: 04/13/12 1:23:00 Insulin regular 1 unit, 0.01 mL, Route: 04/13/2012 04/13/2012 Discontinued SUB-Q, Drug form: SOLN, TID-Before Meals, PRN Blood Glucose Results, Start date: 04/13/12 6:05:00, Duration: 30 day, Stop date: 05/13/12 6:04:00 Insulin regular 3 unit, 0.03 mL, Route: 04/13/2012 04/13/2012 Discontinued SUB-Q, Drug form: SOLN, TID-Before Meals, PRN Blood Glucose Results, Start date: 04/13/12 6:05:00, Duration: 30 day, Stop date: 05/13/12 6:04:00 Insulin regular 2 unit, 0.02 mL, Route: 04/13/2012 04/13/2012 Discontinued SUB-Q, Drug form: SOLN, TID-Before Meals, PRN Blood Glucose Results, Start date: 04/13/12 6:05:00, Duration: 30 day, Stop date: 05/13/12 6:04:00 Insulin regular 4 unit, 0.04 mL, Route: 04/13/2012 04/13/2012 Discontinued SUB-Q, Drug form: SOLN, TID-Before Meals, PRN Blood Glucose Results, Start date: 04/13/12 6:05:00, Duration: 30 day, Stop date: 05/13/12 6:04:00 Insulin regular 5 unit, 0.05 mL, Route: 04/13/2012 04/13/2012 Discontinued SUB-Q, Drug form: SOLN, TID-Before Meals, PRN Blood Glucose Results, Start date: 04/13/12 6:05:00, Duration: 30 day, Stop date: 05/13/12 6:04:00 bisacodyl 10 mg, 2 tab, Route: PO, 04/13/2012 04/13/2012 Discontinued Drug form: ECTAB, Q24H, PRN Constipation, Start date: 04/13/12 6:05:00, Duration: 30 day, Stop date: 05/13/12 6:04:00 docusate 100 mg, 1 cap, Route: PO, 04/13/2012 04/13/2012 Discontinued Drug form: CAP, BID, PRN Constipation, Start date: 04/13/12 6:05:00, Duration: 30 day, Stop date: 05/13/12 6:04:00 acetaminophen-hydrocodone 1 tab, Route: PO, Drug 04/13/2012 04/13/2012 Discontinued 325 mg-10 mg oral tablet Form: TAB, Q4H, PRN Pain Score 1-3, Start date: 04/13/12 6:05:00, Duration: 30 day, Stop date: 05/13/12 6:04:00 morphine Sulfate 4 mg, 1 mL, Route: IVP, 04/13/2012 04/13/2012 Discontinued Drug form: INJ, Q4H, PRN Pain Score 7-10, Start date: 04/13/12 6:05:00, Duration: 30 day, Stop date: 05/13/12 6:04:00 phenytoin 100 mg, 1 cap, Route: PO, 04/13/2012 04/14/2012 Discontinued Drug form: ERCAP, Q8H, Start date: 04/13/12 8:00:00, Duration: 7 day, Stop date: 04/20/12 0:00:00 cefazolin (SCIP) 1 gm, Route: IVPB, Drug form: PDR/INJ, Q8H, Start date: 04/13 10:30:00, Duration: 3 doses or times, Stop date: 04/14/12 2:30:00, (for patients weighing less than 70 kg) 04/13/2012 04/13/2012 Discontinued (for patients weighing less than 70 kg) docusate sodium 100 mg 100 mg, 1 cap, PO, Q12H, 04/14/2012 Ordered oral capsule 20 cap, Substitution Allowed, CAP [place] 5/325 oral tablet 1-2 tab, PO, Q4-6H, PRN, 04/14/2012 04/19/2012 Ordered 30 tab, Pain, Substitution Allowed, Maintenance cefazolin 1 gm, Route: IVPB, Drug 04/13/2012 04/14/2012 Completed form: PDR/INJ, ABXQ8H, Start date: 04/13/12 15:00:00, Duration: 24 hr, Stop date: 04/14/12 7:00:00 phenytoin 300 mg oral 300 mg, 1 cap, PO, 04/14/2012 Ordered capsule, extended release Bedtime, 5 cap, Substitution Allowed Keflex 500 mg oral 500 mg, 1 cap, PO, Q8H, 04/14/2012 Ordered capsule 15 cap, Substitution Allowed Zofran 4 mg, 2 mL, Route: IVP, 04/13/2012 04/14/2012 Discontinued Drug form: INJ, Q8H, PRN Nausea & Vomiting, Start date: 04/13/12 9:06:00, Duration: 30 day, Stop date: 05/13/12 9:05:00 docusate sodium 100 mg 100 mg, 1 cap, Route: PO, 04/13/2012 04/14/2012 Discontinued oral capsule Drug form: CAP, Q12H, Start date: 04/13/12 21:00:00, Duration: 30 day, Stop date: 05/13/12 9:00:00 Dilaudid 1 mg, Route: IV, ONCE, 04/13/2012 04/13/2012 Completed Priority: STAT, Start date: 04/13/12 2:23:00, Stop date: 04/13/12 2:23:00 Vital Signs Most recent to oldest 1 2 3 [Reference Range]: Height 190.50 cm 190.50 cm (04/13/2012 10:16:00) (04/12/2012 20:28:00) Temperature Oral 98.8 DegF 98.0 DegF 97.7 DegF [96.4-99.1 DegF] (04/14/2012 16:39:00) (04/14/2012 12:49:00) (04/14/2012 04: 00:00) Systolic Blood Pressure 142 mmHg 137 mmHg 139 mmHg [90-140 mmHg] *HI* (04/14/2012 12:49:00) (04/14/2012 08:28:00) (04/14/2012 16:39:00) Diastolic Blood Pressure 84 mmHg 78 mmHg 81 mmHg [60-90 mmHg] (04/14/2012 16:39:00) (04/14/2012 12:49:00) (04/14/2012 08:28: 00) Respiratory Rate [14-20 18 BRMIN 18 BRMIN 18 BRMIN BRMIN] (04/14/2012 16:39:00) (04/14/2012 12:49:00) (04/14/2012 08:28:00) Peripheral Pulse Rate 69 bpm 70 bpm 71 bpm [60-100 bpm] (04/14/2012 16:39:00) (04/14/2012 12:49:00) (04/14/2012 08:28: 00) Weight 90.909 kg 90.909 kg (04/13/2012 10:16:00) (04/12/2012 20:28:00) Results CHEMISTRY Most recent to oldest 1 2 3 [Reference Range]: Sodium Lvl [135-145 mEq/L] 139 mEq/L 137 mEq/L 140 mEq/L (04/14/2012 04:51:00) (04/13/2012 12:48:00) (04/12/2012 20:03:00) Potassium Lvl [3.5-5.1 3.9 mEq/L 4.3 mEq/L 4.1 mEq/L mEq/L] (04/14/2012 04:51:00) (04/13/2012 12:48:00) (04/12/2012 20:03:00) Chloride Lvl [95-109 mEq/L] 102 mEq/L 102 mEq/L 104 mEq/L (04/14/2012 04:51:00) (04/13/2012 12:48:00) (04/12/2012 20:03:00) CO2 [24-32 mEq/L] 30 mEq/L 25 mEq/L 27 mEq/L (04/14/2012 04:51:00) (04/13/2012 12:48:00) (04/12/2012 20:03:00) AGAP [10.0-20.0 mEq/L] 10.9 mEq/L 14.3 mEq/L 13.1 mEq/L (04/14/2012 04:51:00) (04/13/2012 12:48:00) (04/12/2012 20:03:00) Creatinine Lvl [0.5-1.4 1.2 mg/dL 1.2 mg/dL 1.1 mg/dL mg/dL] (04/14/2012 04:51:00) (04/13/2012 12:48:00) (04/12/2012 20:03:00) BUN [7-22 mg/dL] 12 mg/dL 14 mg/dL 15 mg/dL (04/14/2012 04:51:00) (04/13/2012 12:48:00) (04/12/2012 20:03:00) Glucose Lvl [70-99 mg/dL] 113 mg/dL 1 141 mg/dL 2 105 mg/dL 3 *HI* *HI* *HI* (04/14/2012 04:51:00) (04/13/2012 12:48:00) (04/12/2012 20:03:00) Total Protein [6.4-8.4 6.4 g/dL g/dL] (04/14/2012 04:51:00) Albumin Lvl [3.5-5.0 g/dL] 3.5 g/dL (04/14/2012 04:51:00) Globulin [2.0-4.0 g/dL] 2.9 g/dL (04/14/2012 04:51:00) A/G Ratio [0.7-1.6] 1.2 (04/14/2012 04:51:00) Calcium Lvl [8.5-10.5 8.1 mg/dL 7.8 mg/dL 8.6 mg/dL mg/dL] *LOW* *LOW* (04/12/2012 20:03:00) (04/14/2012 04:51:00) (04/13/2012 12:48:00) Phosphorus [2.5-4.5 mg/dL] 3.7 mg/dL (04/14/2012 04:51:00) Magnesium Lvl [1.8-2.4 2.2 mg/dL mg/dL] (04/14/2012 04:51:00) ALT [0-65 U/L] 15 U/L (04/14/2012 04:51:00) AST [0-37 U/L] 7 U/L (04/14/2012 04:51:00) Alk Phos [39-136 U/L] 59 U/L (04/14/2012 04:51:00) Bili Total [0.2-1.3 mg/dL] 0.7 mg/dL (04/14/2012 04:51:00) Bili Direct [0.0-0.3 mg/dL] 0.2 mg/dL (04/14/2012 04:51:00) Bili Indirect [0.0-1.0 0.5 mg/dL mg/dL] (04/14/2012 04:51:00) 1Interpretive Data: Adult reference range values reflect the clinical guidelinesof the [place] [employer].2Interpretive Data: Adult reference range values reflect the clinical guidelinesof the [place] [employer].3Interpretive Data: Adult reference range values reflect the clinical guidelinesof the [place] [employer].HEMATOLOGY Most recent to oldest 1 2 3 [Reference Range]: WBC [3.7-10.4 K/CMM] 7.6 K/CMM 7.9 K/CMM 9.4 K/CMM (04/14/2012 04:51:00) (04/13/2012 12:48:00) (04/12/2012 20:03:00) RBC [4.70-6.10 M/CMM] 4.57 M/CMM 4.56 M/CMM 5.13 M/CMM *LOW* *LOW* (04/12/2012 20:03:00) (04/14/2012 04:51:00) (04/13/2012 12:48:00) Hgb [14.0-18.0 g/dL] 13.4 g/dL 13.0 g/dL 14.7 g/dL *LOW* *LOW* (04/12/2012 20:03:00) (04/14/2012 04:51:00) (04/13/2012 12:48:00) Hct [42.0-54.0 %] 39.7 % 40.1 % 44.0 % *LOW* *LOW* (04/12/2012 20:03:00) (04/14/2012 04:51:00) (04/13/2012 12:48:00) MCV [80.0-94.0 fL] 86.9 fL 87.9 fL 85.9 fL (04/14/2012 04:51:00) (04/13/2012 12:48:00) (04/12/2012 20:03:00) MCH [27.0-31.0 pg] 29.3 pg 28.6 pg 28.7 pg (04/14/2012 04:51:00) (04/13/2012 12:48:00) (04/12/2012 20:03:00) MCHC [32.0-36.0 g/dL] 33.7 g/dL 32.5 g/dL 33.5 g/dL (04/14/2012 04:51:00) (04/13/2012 12:48:00) (04/12/2012 20:03:00) RDW [11.5-14.5 %] 14.8 % 14.4 % 13.5 % *HI* (04/13/2012 12:48:00) (04/12/2012 20:03:00) (04/14/2012 04:51:00) Platelet [133-450 K/CMM] 161 K/CMM 169 K/CMM 179 K/CMM (04/14/2012 04:51:00) (04/13/2012 12:48:00) (04/12/2012 20:03:00) MPV [7.4-10.4 fL] 8.7 fL 8.3 fL 8.4 fL (04/14/2012 04:51:00) (04/13/2012 12:48:00) (04/12/2012 20:03:00) Segs [45.0-75.0 %] 51.2 % 66.3 % 47.0 % (04/14/2012 04:51:00) (04/13/2012 12:48:00) (04/12/2012 20:03:00) Bands [0.0-11.0 %] 0.0 % (04/12/2012 20:03:00) Lymphocytes [20.0-40.0 %] 26.5 % 18.8 % 33.0 % (04/14/2012 04:51:00) *LOW* (04/12/2012 20:03:00) (04/13/2012 12:48:00) Atypical Lymphs [<=0.0 %] 0.0 % (04/12/2012 20:03:00) Monocytes [2.0-12.0 %] 9.3 % 10.0 % 5.0 % (04/14/2012 04:51:00) (04/13/2012 12:48:00) (04/12/2012 20:03:00) Eosinophils [0.0-4.0 %] 12.3 % 4.4 % 14.0 % *HI* *HI* *HI* (04/14/2012 04:51:00) (04/13/2012 12:48:00) (04/12/2012 20:03:00) Basophils [0.0-1.0 %] 0.7 % 0.5 % 1.0 % (04/14/2012 04:51:00) (04/13/2012 12:48:00) (04/12/2012 20:03:00) Segs-Bands # [1.5-8.1 3.9 K/CMM 5.2 K/CMM 4.4 K/CMM K/CMM] (04/14/2012 04:51:00) (04/13/2012 12:48:00) (04/12/2012 20:03:00) Lymphocytes # [1.0-5.5 2.0 K/CMM 1.5 K/CMM 3.1 K/CMM K/CMM] (04/14/2012 04:51:00) (04/13/2012 12:48:00) (04/12/2012 20:03:00) Monocytes # [0.0-0.8 0.7 K/CMM 0.8 K/CMM 0.5 K/CMM K/CMM] (04/14/2012 04:51:00) (04/13/2012 12:48:00) (04/12/2012 20:03:00) Eosinophils # [0.0-0.5 0.9 K/CMM 0.3 K/CMM 1.3 K/CMM K/CMM] *HI* (04/13/2012 12:48:00) *HI* (04/14/2012 04:51:00) (04/12/2012 20:03:00) Basophils # [0.0-0.2 0.1 K/CMM 0.0 K/CMM 0.1 K/CMM K/CMM] (04/14/2012 04:51:00) (04/13/2012 12:48:00) (04/12/2012 20:03:00) Tot Cell Ct 100 *NA* (04/12/2012 20:03:00) RBC Morph Normal (04/12/2012 20:03:00) Plt Morph Normal (04/12/2012 20:03:00) PT [12.0-14.7 seconds] 13.1 seconds (04/12/2012 20:03:00) INR [0.85-1.17] 0.99 4 (04/12/2012 20:03:00) PTT [22.9-35.8 seconds] 27.4 seconds 5 (04/12/2012 20:03:00) Rapid TEG Sample Type Citrated Whole Bld *NA* (04/13/2012 00:03:00) ACT (TEG) [86-118 seconds] 113 seconds (04/13/2012 00:03:00) Split Point 0.6 minutes *NA* (04/13/2012 00:03:00) R-time [0.4-0.7 minutes] 0.7 minutes (04/13/2012 00:03:00) K-time [0.6-2.3 minutes] 1.5 minutes (04/13/2012 00:03:00) Angle [64-80 degrees] 73 degrees (04/13/2012 00:03:00) Max Amp [52-71 mm] 62 mm (04/13/2012 00:03:00) G-value [5.0-11.6 K d/sc] 8.3 K d/sc (04/13/2012 00:03:00) Estimated % Lysis [0.0-7.5 4.5 % %] (04/13/2012 00:03:00) 4Interpretive Data: RECOMMENDED RANGES FOR PROTIME INR: 2.0-3.0 for most medical and surgical thromboembolic states. 2.5-3.5 for artificial heart valves and recurrent embolism.INR SHOULD BE USED ONLY FOR PATIENTS ON STABLE ANTICOAGULANT THERAPY.5Interpretive Data: Heparin Therapeutic Range: 57 - 92 Seconds
--- OUTSIDE RECORDS SUMMARY | 2018-05-29 09:54 | XMS REPORT | Summary of Care ---
:1935 Author Encounter Dates Location Diagnoses Discharge Providers Disposition 01/04/2014 - [facility] Final: Personal History of Transient Ischemic Attack (TIA), and Cerebral Infarction without Residual Deficits Home Omar Santizo 01/04/[address] [place] [id number] Omar Santizo [address] , [facility] Final: Unspecified Transient Cerebral Ischemia Sameer Balderas Final: Unspecified Essential Hypertension Reason for Visit TRANS-ISCHEMIC ATTACK Vital Signs Most recent to oldest 1 2 3 [Reference Range]: Height 190.5 cm 190.5 cm (01/04/2014 00:07:00 [facility] Temperature Oral 97.9 DegF 98.4 DegF 96.5 DegF [96.4-99.1 DegF] (01/04/2014 13:17:00 [facility]) (01/04/2014 08:53:00 [facility]) (01/04/2014 04:32:00 [facility]) Systolic Blood Pressure 137 mmHg 159 mmHg 121 mmHg [90-140 mmHg] (01/04/2014 19:25:00 [facility] *HI* (01/04/2014 18:00: 00 [facility]) (01/04/2014 18:47:00 [facility]) Diastolic Blood Pressure 78 mmHg 87 mmHg 54 mmHg [60-90 mmHg] (01/04/2014 19:25:00 [facility]) (01/04/2014 18:47:00 [facility]) *LOW* (01/04/2014 18:00:00 [facility] Respiratory Rate [14-20 31 BRMIN 33 BRMIN 15 BRMIN BRMIN] *HI* *HI* (01/04/2014 18:00:00 [facility]) (01/04/2014 19:25:00 [facility]) (01/04/2014 18:47:00 [facility]) Peripheral Pulse Rate 90 bpm 70 bpm 74 bpm [60-100 bpm] (01/04/2014 08:53:00 [facility]) (01/04/2014 04:32:00 [facility]) (01/04/2014 00:17:00 [facility]) Weight 90.909 kg 90.007 kg (01/04/2014 00:07:00 [facility]) (01/03/2014 23:50:00 [facility]) Body Mass Index 25.05 m2 24.8 m2 (01/04/2014 00:07:00 [facility]) (01/03/2014 23:50:00 [facility]) Problem List Condition Effective Dates Status Health Status Informant Acute pain(Confirmed) Active Prostate cancer(Confirmed) Resolved TIA (transient ischemic Resolved attack)(Confirmed) Allergies, Adverse Reactions, Alerts Substance Reaction Severity Status NKDA Active Medications Medication Instructions Start Date Stop Date Status acetaminophen 650 mg, 2 tab, Route: PO, Drug form: TAB, Q4H, Dosing Weight 90.909, kg, PRN Pain 1-3/Temp > 99.5 F, Start date: 01/04/14 5:46:00, Duration: 30 day, Stop date: 02/03/14 5:45:00 01/04/2014 01/04/2014 Discontinued Do not exceed 4 gm/day. (Same as: Tylenol) aspirin 325 mg, 1 tab, Route: PO, Drug form: TAB, Daily, Dosing Weight 90.909 , kg, Priority: NOW, Start date: 01/04/14 1:20:00, Duration: 30 day, Stop date: 02/02/14 9:00:00 01/04/2014 01/04/2014 Discontinued Take with food. aspirin 81 mg, 1 tab, Route: PO, Drug form: ECTAB, Daily, Dosing Weight 90.909 , kg, Start date: 01/04/14 13:30:00, Duration: 30 day, Stop date: 02/03/14 9:00: 00 01/04/2014 01/04/2014 Discontinued Do not crush or chew.(Same As: Ecotrin) aspirin 81 mg tablet, 81 mg=1 tab, PO, Daily, 01/04/2014 Ordered enteric coated # 30 tab, 0 Refill(s) aspirin 81 mg tablet, 81 mg=1 tab, PO, Daily 01/04/2014 01/04/2014 Discontinued enteric coated atorvastatin 80 mg, 1 tab, Route: PO, Drug form: TAB, Bedtime, Dosing Weight 90.909, kg, Priority: NOW, Start date: 01/04/14 1:20:00, Duration: 30 day, Stop date: 02/02/14 21:00:00 01/04/2014 01/04/2014 Discontinued Same as Lipitor atorvastatin 80 mg oral 80 mg=1 tab, PO, 01/04/2014 Ordered tablet Bedtime, # 30 tab, 0 Refill(s) enoxaparin 40 mg, 0.4 mL, Route: SUB-Q, Drug form: INJ, [id number], Dosing Weight 90.909, kg, Start date: 01/04/14 6:00:00, Duration: 30 day, Stop date: 6:00:00 01/04/2014 01/04/2014 Discontinued (Same as: Lovenox) lisinopril 5 mg, 1 tab, Route: PO, Drug form: TAB, Daily, Dosing Weight 90.909 , kg, Start date: 01/05/14 9:00:00, Duration: 30 day, Stop date: 02/03/14 9:00: 00 01/05/2014 01/04/2014 Canceled (Same as: Prinivil, Zestril) lisinopril 40 mg, 2 tab, Route: PO, Drug form: TAB, Daily, Dosing Weight 90.909, kg, Priority: NOW, Start date: 01/04/14 12:07:00, Duration: 30 day, Stop date: 02/03/14 9:00:00 01/04/2014 01/04/2014 Discontinued (Same as: Prinivil, Zestril) lisinopril 20 mg oral 40 mg=2 tab, PO, Daily, 01/04/2014 01/04/2014 Discontinued tablet # 30 tab, 0 Refill(s) lisinopril 5 mg oral 5 mg=1 tab, PO, Daily, # 01/04/2014 Ordered tablet 30 tab, 0 Refill(s) multivitamin 1 tablet, PO, Daily, 0 01/04/2014 Ordered Refill(s) multivitamin 1 tab, Route: PO, Drug Form: TAB, Dosing Weight 90.909, kg, Daily , Start date: 01/05/14 9:00:00, Duration: 30 day, Stop date: 02/03/14 9:00:00 01/05/2014 01/04/2014 Canceled (Same as:Thera) Take with food. Ocuvite oral tablet 1 tab, PO, Daily, # 30 01/04/2014 Ordered tab, 0 Refill(s) Omnipaque 350mg/ml 85 mL, Route: IVP, Drug Form: SOLN, Dosing Weight 90.909, kg, ONCALL, STAT, Start date: 01/04/14 6:27:00, Duration: 1 doses or times, Dose =2.2ml/kg, Max gpwa=482sb -- "To be infused by Radiology Staff ONLY" 201301/04/2014 Completed Dose=2.2ml/kg, Max sght=326pk -- "To be infused by Radiology Staff ONLY" (Same as:Omnipaque 350). Vitamin B12 1 tablet, PO, Daily, 0 01/04/2014 Ordered Refill(s) Vitamin B12 1,000 microgram, 1 tab, Route: PO, Drug form: TAB, Daily, Dosing Weight 90.909, kg, Start date: 01/05/14 9:00:00, Duration: 30 day, Stop date: 9:00:00 01/05/2014 01/04/2014 Canceled (Same As: Vitamin B-12) Zoloft 100 mg, 1 tab, Route: PO, Drug form: TAB, Daily, Dosing Weight 90.909, kg, Start date: 01/04/14 14:00:00, Duration: 30 day, Stop date: 02/03/14 9:00: 00 01/04/2014 01/04/2014 Discontinued (Same as: Zoloft) Zoloft 100 mg oral tablet 100 mg=1 tab, PO, Daily 01/04/2014 Ordered Results ELECTROLYTES Most recent to oldest [Reference Range]: 1 2 Sodium Lvl [135-145 mEq/L] 140 mEq/L (01/04/2014 02:10:00 [facility]) Potassium Lvl [3.5-5.1 mEq/L] 4.1 mEq/L (01/04/2014:10:00 [facility]) Chloride Lvl [95-109 mEq/L] 106 mEq/L (01/04/2014:10: [facility]) CO2 [24-32 mEq/L] 26 mEq/L (01/04/2014:10: [facility]) AGAP [10.0-20.0 mEq/L] 12.1 mEq/L (01/04/2014:10: [facility]) CHEM PANEL Most recent to oldest [Reference Range]: 1 2 Creatinine Lvl [0.5-1.4 mg/dL] 1.0 mg/dL (01/04/2014:10: [facility]) eGFR 73 mL/min/1.73m2 1 *NA* (01/04/2014:10:00 [facility]) BUN [7-22 mg/dL] 22 mg/dL (01/04/2014:10: [facility]) Glucose Lvl [70-99 mg/dL] 112 mg/dL 2 *HI* (01/04/2014:10:00 [facility]) Calcium Lvl [8.5-10.5 mg/dL] 8.3 mg/dL *LOW* (01/04/2014:10:00 [facility]) Phosphorus [2.5-4.5 mg/dL] 3.4 mg/dL (01/04/2014:10:00 [facility]) Magnesium Lvl [1.8-2.4 mg/dL] 2.0 mg/dL (01/04/2014:10: [facility]) 1Result Comment: The eGFR is calculated using [...] eGFR should be multiplied by the estimated BMI.2Interpretive Data: Adult reference range values reflect the clinical guidelines of the [place] [employer].CARDIAC ENZYMES Most recent to oldest [Reference 1 2 Range]: Total CK [12-191 unit/L] 93 unit/L 58 unit/L (01/04/2014 15:21:39 [facility]) (01/04/2014 11:36:00 [facility]) CK MB [0.5-3.6 ng/mL] 1.2 ng/mL (01/04/2014 15:21:39 [facility]) CK MB Index [0.0-2.5] 1.3 (01/04/2014 15:21:39 [facility]) Troponin-T [0.000-0.100 ng/mL] <0.010 ng/mL (01/04/2014 11:36:00 [facility]) Troponin-I [0.00-0.40 ng/mL] <0.02 ng/mL (01/04/2014 11:36:00 [facility]) LIPIDS Most recent to oldest [Reference Range]: 1 2 CHD Risk [4.00-7.30] 7.17 (01/04/2014 02:10:00 [facility]) Chol [<=199 mg/dL] 165 mg/dL (01/04/2014 02:10:00 [facility]) Trig [<=149 mg/dL] 118 mg/dL (01/04/2014 02:10:00 [facility]) HDL [>=61 mg/dL] 23 mg/dL *LOW* (01/04/2014 02:10:00 [facility]) LDL (Calculated) [<=99 mg/dL] 118 mg/dL *HI* (01/04/2014 02:10:00 [facility]) SPECIAL CHEMISTRY Most recent to oldest [Reference Range]: 1 2 Hgb A1C [<=5.6 %] 5.6 % (01/04/2014 02:10:00 [facility]) URINE AND STOOL Most recent to oldest [Reference Range]: 1 2 UA Turbidity [Clear] Clear (01/04/2014 11:35:03 [facility]) UA Color [Yellow] Yellow *NA* (01/04/2014 11:35:03 [facility]) UA pH [5.0-8.0] 6.5 (01/04/2014 11:35:03 [facility]) UA Spec Grav [<=1.030] >=1.050 *ABN* (01/04/2014 11:35:03 [facility]) UA Glucose [Negative mg/dL] Negative mg/dL *NA* (01/04/2014 11:35:03 [facility]) UA Blood [Negative] Negative (01/04/2014 11:35:03 [facility]) UA Ketones [Negative mg/dL] Negative mg/dL *NA* (01/04/2014 11:35:03 [facility]) UA Protein [Negative mg/dL] 50 mg/dL *ABN* (01/04/2014 11:35:03 [facility]) UA Urobilinogen [0.1-1.0 mg/dL] 2.0 mg/dL *HI* (01/04/2014 11:35:03 [facility]) UA Bili [Negative] Negative *NA* (01/04/2014 11:35:03 [facility]) UA Leuk Est [Negative] Negative (01/04/2014 11:35:03 [facility]) UA Nitrite [Negative] Negative (01/04/2014 11:35:03 [facility]) UA WBC [0-5 /HPF] 1 /HPF (01/04/2014 11:35:03 [facility]) UA RBC [0-2 /HPF] 1 /HPF (01/04/2014 11:35:03 [facility]) UA Sq Epi [Few /LPF] Occasional /LPF *NA* (01/04/2014 11:35:03 [facility]) UA Renal Epi [<=0 /LPF] 1 /LPF *HI* (01/04/2014 11:35:03 [facility]) UA Mucus [None Seen /LPF] Few /LPF *NA* (01/04/2014 11:35:03 [facility]) HEMATOLOGY Most recent to oldest [Reference Range]: 1 2 WBC [3.7-10.4 K/CMM] 9.1 K/CMM (01/04/2014 02:10:00 [facility]) RBC [4.70-6.10 M/CMM] 5.06 M/CMM (01/04/2014 02:10:00 [facility]) Hgb [14.0-18.0 g/dL] 15.6 g/dL (01/04/2014:10:00 [facility]) Hct [42.0-54.0 %] 45.8 % (01/04/2014 02:10:00 [facility]) MCV [80.0-94.0 fL] 90.6 fL (01/04/2014 02:10:00 [facility]) MCH [27.0-31.0 pg] 30.8 pg (01/04/2014:10:00 [facility]) MCHC [32.0-36.0 g/dL] 34.0 g/dL (01/04/2014:10: [facility]) RDW [11.5-14.5 %] 14.3 % (01/04/2014:10:00 [facility]) Platelet [133-450 K/CMM] 181 K/CMM (01/04/2014:10:00 [facility]) MPV [7.4-10.4 fL] 9.0 fL (01/04/2014 02:10:00 [facility]) Segs [45.0-75.0 %] 63.5 % (01/04/2014:10:00 [facility]) Lymphocytes [20.0-40.0 %] 24.3 % (01/04/2014 02:10:00 [facility]) Monocytes [2.0-12.0 %] 9.3 % (01/04/2014:10:00 [facility]) Eosinophils [0.0-4.0 %] 2.6 % (01/04/2014 02:10:00 [facility]) Basophils [0.0-1.0 %] 0.3 % (01/04/2014:10:00 [facility]) Segs-Bands # [1.5-8.1 K/CMM] 5.8 K/CMM (01/04/2014 02:10:00 [facility]) Lymphocytes # [1.0-5.5 K/CMM] 2.2 K/CMM (01/04/2014 02:10:00 [facility]) Monocytes # [0.0-0.8 K/CMM] 0.9 K/CMM *HI* (01/04/2014 02:10:00 [facility]) Eosinophils # [0.0-0.5 K/CMM] 0.2 K/CMM (01/04/2014 02:10:00 [facility]) Medications Administered During Your Visit No data available for this section Immunizations No data available for this section Procedures Procedure Type Body Site Date of Procedure Related Diagnosis Cholecystectomy Hip replacement Social History Social History Type Response Assessment and Plan Extracted from: Title: Clinical Document Author: Gabby Cortez [facility]: [facility] Date of Admission: 01/03/14 Date of Discharge/Transfer: 01/04/14 Admit Diagnosis: dizziness and LLE plegia Discharge Diagnosis: TIA Etiology of Stroke: n/a Brief HPI: Pt is a 78 yo R handed with PMH significant for HTN and 2 TIAs who presents with acute onset of nausea, SOB, dizziness about 4 pm after carring a diswasher outside for a garage sale. He produ yelena emesis x 3, became aphasic.. Per EMS he had LLE plegia. He denied HENLEY during this time and his returned to his baseline by the time he reached the OSH. Testing/Labs: EKG from OSH: NSR w/ 1st degree AV Block; WBC: 14.7, Neutrophilia : 85.6 Glucose: 140 Creatinine: 1.28 He did take aspirin on a daily basis however stopped for the past week 2/2 easy bruising of his hands. His previous TIAs occured in both presented with RUE weakness, at that time he was found to have a carotid us showing L ICA stenosis of 50%. Pt did not get tPA since his symptoms rapidally improved and he was outside the window. Hospital Course: MRI negative for acute stroke but reveals chronic microhemorrhages. Patient deemed stable for discharge home. Discharge Physical Examination: AAO3, no facial asymetry, no motor deficits, no sensory deficits, no dysmetria , no gait abnormalities Discharge Medications: see HMR Disposition: HOME Follow up: St[facility] within 4-6 weeks, call [phone] Discharge Instructions: The patient received stroke education regarding signs and symptoms of stroke. They were instructed to call 911 if similar symptoms occurred again. The list of their medications on discharged was r reggiewed with the patient and all questions were answered. Extracted from: Title: Neurology Author: Jodi Prabhakar Date: 01/04/2014 Neurology Patient Name: Tonie Khan Date of Admission: 01/03/14 Requesting Physician/Service: OSH Transfer CC: Nauseous HISTORY OF PRESENT ILLNESS: Pt is a 78 yo R handed with PMH significant for HTN and 2 TIAs who presents with acute onset of nausea, SOB, dizziness about 4 pm after carring a diswasher outside for a garage sale. He produ yelena emesis x 3, became aphasic.. Per EMS he had LLE plegia. He denied HENLEY during this time and his returned to his baseline by the time he reached the OSH. Testing/Labs: EKG from OSH: NSR w/ 1st degree AV Block; WBC: 14.7, Neutrophilia : 85.6 Glucose: 140 Creatinine: 1.28 He did take aspirin on a daily basis however stopped for the past week 2/2 easy bruising of his hands. His previous TIAs occured in both presented with RUE weakness, at that time he was found to have a carotid us showing L ICA stenosis of 50%. Pt did not get tPA since his symptoms rapidally improved and he was outside the window. REVIEW OF SYSTEMS: GEN: no fever, chills, weight loss, fatigue EYES: no blurred vision, double vision CARDIO: no chest pain, palpitations PULM: no shortness of breath, cough GI: no nausea, vomiting, diarrhea, no abd pain, no constipation : no frequency, dysuria, burning, hematuria NEURO: see HPI SKIN: no rash or lesion ENDOCRINE: cold/heat intolerance MUSCULOSKELETAL: No joint pain PAST MEDICAL HISTORY HTN PAST SURGICAL HISTORY Prostate, L Hip Replacement, Cholecystectomy, Dental procedures 2/2 impacted tooth FAMILY MEDICAL HISTORY unknown SOCIAL HISTORY Pt is , lives with . Smoked briefly in college, drinks a glass of red wine daily for health benefits, denies drug use. HOME MEDS NONE ALLERGIES NKDA PHYSICAL EXAM Vitals and Temp: Vitals Tmp(F) Pulse BP RR SpO2 FIO2 01/04 04:32 96.5 70 147/78 20 100 --- 01/04 00:17 96.0 74 155/92 18 95 --- 24 Hr Tmax: 96.5F (35.83c) at 01/04 04:32 Vital Signs are the last 5 in the past 48 hours. GENERAL: Awake, alert, NAD. HEENT: - Normocephalic and atraumatic; MMM LUNGS - Clear to auscultation bilaterally with no wheezes CV - S1S2 RRR, no m/r/g, equal pulses bilaterally, no carotid bruit ABDOMEN - Soft, nontender, non-distended with normoactive BS NEURO: 1. Mental Status: Patient is awake alert, fully oriented to person, place and time. AAO x _3_ PERRL _2_mm brisk EOMI, tongue midline, no facial asymmetry 2. Speech/language: Naming, Repetition, comprehension and fluency are intact. 3. Cranial Nerves: EOMI, visual aguila full, pupil 3 mm reactive bilaterally, facial sensation intact, face symmetric, hearing intact, tongue/uvula/soft palate midline, normal sternocleidomastoid and trapezius muscle stre ngth. No evidence of tongue atrophy or fibrillations 4. Motor: Strength/Power: R UE- Deltoid 5/5, Triceps 5/5, Biceps 5/5, Wrist flexion 5/5, Wrist extension 5/5 L UE- Deltoid 5/5, Triceps 5/5, Biceps 5/5, Wrist flexion 5/5, Wrist extension 5/5 R LE- Illopsoas 5/5, Knee extension 5/5, Knee flexion 5/5, dorsiflexion 5/5, plantar flexion 5/5 LLE- Illopsoas 5 /5, Knee extension5 /5, Knee flexion 5/5, dorsiflexion 5/5, plantar flexion 5/5 Hemiparesis and/or hemiplegic Tone is normal Deep Tendon Reflexes- R Triceps2+, Biceps 2+, Brachioradialis 2+, Patellar 2+, Ankle 2+ L Triceps2+, Biceps 2+, Brachioradialis 2+, Patellar 2+, Ankle 2+ Toes down going bilaterally 6. Sensation- intact to pinprick, temperature, vibration, and proprioception and equal bilaterally 7. Coordination: FTN wnl, heel to renteria WNL with no signs of dysmetria , no ataxia noted 8. Gait-DEFERRED NIHSS TOTAL: ___0 1a. Level of Consciousness __0__ 0-alert 1-drowsy 2-stupor 1b. LOC Questions month and age _0___ 0-both 1-one 2-neither 1c. LOC Commands open/ close the eyes and then to rail signal designer and release the non- paretic hand __0__ 0-both 1-one 2-neither 2. Best Gaze __0__ 0-nl 1-partial 2-forced gaze 3. Visual Aguila _0___ 0=No visual loss. 1=Partial hemianopia. 2=Complete hemianopia. 3= Bilateral hemianopia 4. Facial Palsy _0___ 0-none 1-minor 2-partial 3-complete 0=No drift; leg holds 30-degree position for full 5 seconds. 1=Drift; leg falls by the end of the 5-second period but does not hit bed. 2=Some effort vs gravity; leg falls by 5 seconds, some effort vs gravity. 3=No effort vs gravity; leg falls to bed immediately. 4=No movement. 5-8. Motor __0__R. arm __0__L. arm _0___R. leg __0__L. leg 9. Limb Ataxia _0___ 0 absent 1 - 1limb 2 - 2 limbs 10. Sensory _0___ 0-nl 1-partial loss 2-dense loss 11. Best Language _0___ 0-nl 1-mild/mod 2-severe 3-mute 12. Dysarthria __0__ 0-nl 1-mild/mod 2-severe x-untestable 13. Extinction and Inattention (formerly Neglect): __0__ 0-none 1-partial 2-complete SIGNIFICANT LABS: Creatinine: 1.0 ,WBC: 9.1 ,Glucose: 112 DIAGNOSTIC TESTS: CT Head: no acute abnormalities observed, no hemorrhage observed on personal review. THE FOLLOWING WERE PRESENT ON ADMISSION (POA) Cardiovascular HTN EKG Metabolic Hyperglycemia ASSESSMENT: Pt is a 78 yo R handed with PMH significant for HTN and 2 TIAs who presents with acute onset of nausea, SOB, dizziness about 4 pm after carring a diswasher outside for a garage sale. His sympt oms are concerning for possible posterior circulation stroke. However now his symptoms have resolved and he has returned to his baseline. It would best to perform a full stroke work up to provided the a dequate secondary stroke preventio for Mr. Khan. PLAN # TIA: - Location: Possible Posterior Circulation - Etiology: Likely large artery vs cardioembolic - Admit to Stroke unit under Dr. Santizo - BP goal : permissive HTN - ASA 325 mg po daily - Lipitor 80 mg po daily, will order lipid panel and hepatic panel and adjust Lipitor accordingly - cerebral edema: No - will order A1c and start sliding scale insulin for tight glucose control - will get MRI of brain in the morning - will get 2D echo - PT/OT/ ST evaluation in the morning - DVT Prophylaxis: Lovenox 40mg q d, SCD, LIBRA - GI Prophylaxis: Not indicated - Bowel Prophylaxis: Colace and Senna The patient was discussed with __Gonzalez , the attending/fellow assistant professor of communication. Jodi Prabhakar MD Neurology PGY-2 MSO : [phone] Pager : [phone] STROKE NEUROLOGY STAFF I have seen and examined the patient. Furthermore, I have discussed the case with and reviewed Dr. Prabhakar's note and agree with the history, exam, assessment and plan. See note below for additions and/ or exceptions and my findings. I have personally viewed the patient's radiographic studies and laboratory tests. 78yo male with PMH s/f left carotid stenosis, TIAs (RUE sensory loss) who had acute onset N/V and difficulty speaking. Pt was also found to have Left lower extremity weakness. He returned to baseline and went to an OSH, then transferred here for a higher level of care. Notable Labs: LDL: 118 HgbA1c: 5.6 CT-head: negative acute, no ICH. CT-angiogram head/neck: no significant, flow-limiting stenoses or occlusions, but left ICA at bulb is 57% stenotic. MRI brain: no acute infarctions. Severe old microhemorrhages in the bilateral occipital lobes. History of Carotid Stenosis - left ICA 57%. Transthoracic Echocardiogram: pending Assessment / Plan: 17741 TIA - 435.9 - see below. Asymptomatic left Carotid stenosis- 433.10 Treatment: continue aspirin 81mg and start high-dose statin. Hypertension - 401.9 - Aggresive BP control. Start low dose ACEI. normalize BP. DVT prophylaxis - - SCDs & LIBRA hose - Enoxaparin SQ I have talked the patient and available family in detail about the warning signs of stroke; the importance of their early recognition and activation of EMS. The stroke risk factors have also been clearl y identified and communicated to the patient. The importance of taking prescribed medication for secondary stroke prevention and being regular in follow up appointments has also been emphasized. Omar Santizo M.D. [employer] Dept of Neurology [phone] (pager) [phone] (cell)
--- OUTSIDE RECORDS SUMMARY | 2018-05-29 09:54 | XMS REPORT | CCD ---
:1935 Author Organization [facility] Care Team Providers Name Role Phone Ravi Carrizales Referring Provider Allergies, Adverse Reactions, Alerts Substance Reaction Status NKDA Active Problem List Condition Effective Dates Status Acute pain Active
--- OUTSIDE RECORDS SUMMARY | 2018-05-29 09:54 | XMS REPORT | Summary of Care ---
:1935 Author Encounter Dates Location Diagnoses Discharge Providers Disposition 01/04/2014 - [facility] Final: Personal History of Transient Ischemic Attack (TIA), and Cerebral Infarction without Residual Deficits Home Omar Santizo 01/04/[address] [place] [address] Omar Santizo [address] , [facility] Final: Unspecified Transient Cerebral Ischemia Sameer Balderas Final: Unspecified Essential Hypertension Reason for Visit TRANS-ISCHEMIC ATTACK Vital Signs Most recent to oldest 1 2 3 [Reference Range]: Height 190.5 cm 190.5 cm (01/04/2014 00:07:00 [facility] Temperature Oral 97.9 DegF 98.4 DegF 96.5 DegF [96.4-99.1 DegF] (01/04/2014 13:17:00 [facility]) (01/04/2014 08:53:00 [facility]) (01/04/2014 04:32:00 [facility]) Systolic Blood Pressure 137 mmHg 159 mmHg 121 mmHg [90-140 mmHg] (01/04/2014 19:25:00 [facility]) *HI* (01/04/2014 18:00: 00 [facility]) (01/04/2014 18:47:00 [facility]) Diastolic Blood Pressure 78 mmHg 87 mmHg 54 mmHg [60-90 mmHg] (01/04/2014 19:25:00 [facility]) (01/04/2014 18:47:00 [facility]) *LOW* (01/04/2014 18:00:00 [facility]) Respiratory Rate [14-20 31 BRMIN 33 BRMIN 15 BRMIN BRMIN] *HI* *HI* (01/04/2014 18:00:00 [facility]) (01/04/2014 19:25:00 [facility]) (01/04/2014 18:47:00 [facility]) Peripheral Pulse Rate 90 bpm 70 bpm 74 bpm [60-100 bpm] (01/04/2014 08:53:00 [facility]) (01/04/2014 04:32:00 [facility]) (01/04/2014 00:17:00 [facility]) Weight 90.909 kg 90.007 kg (01/04/2014 00:07:00 [facility]) (01/03/2014 23:50:00 [facility]) Body Mass Index 25.05 m2 24.8 m2 (01/04/2014 00:07:00 [facility]) (01/03/2014 23:50:00 [facility]) Problem List Condition Effective Dates Status Health [...] 0.4 mL, Route: SUB-Q, Drug form: INJ, [id number], Dosing Weight 90.909, kg, Start date: 01/04/14 [...] 1 doses or times, Dose =2.2ml/kg, Max [id number] -- "To be infused by Radiology Staff ONLY" 201301/04/2014 Completed Dose=2.2ml/kg, Max [id number] -- "To be infused by Radiology Staff [...] [135-145 mEq/L] 140 mEq/L (01/04/2014 02:10:00 [facility]) Potassium Lvl [3.5-5.1 mEq/L] 4.1 mEq/L (01/04/2014:10:00 [facility]) Chloride Lvl [95-109 mEq/L] 106 mEq/L (01/04/2014:10: [facility]) CO2 [24-32 mEq/L] 26 mEq/L (01/04/2014:10: [facility]) AGAP [10.0-20.0 mEq/L] 12.1 mEq/L (01/04/2014:10: [facility]) CHEM PANEL Most recent to oldest [Reference Range]: 1 2 Creatinine Lvl [0.5-1.4 mg/dL] 1.0 mg/dL (01/04/2014:10: [facility]) eGFR 73 mL/min/1.73m2 1 *NA* (01/04/2014:10:00 [facility]) BUN [7-22 mg/dL] 22 mg/dL (01/04/2014:10: [facility]) Glucose Lvl [70-99 mg/dL] 112 mg/dL 2 *HI* (01/04/2014:10:00 [facility]) Calcium Lvl [8.5-10.5 mg/dL] 8.3 mg/dL *LOW* (01/04/2014:10:00 [facility]) Phosphorus [2.5-4.5 mg/dL] 3.4 mg/dL (01/04/2014:10:00 [facility]) Magnesium Lvl [1.8-2.4 mg/dL] 2.0 mg/dL (01/04/2014:10: [facility]) 1Result Comment: The eGFR is calculated using [...] values reflect the clinical guidelines of the [place] [employer].CARDIAC ENZYMES Most recent to oldest [Reference 1 2 Range]: Total CK [12-191 unit/L] 93 unit/L 58 unit/L (01/04/2014 15:21:39 [facility]) (01/04/2014 11:36:00 [facility]) CK MB [0.5-3.6 ng/mL] 1.2 ng/mL (01/04/2014 15:21:39 [facility]) CK MB Index [0.0-2.5] 1.3 (01/04/2014 15:21:39 [facility]) Troponin-T [0.000-0.100 ng/mL] <0.010 ng/mL (01/04/2014 11:36:00 [facility]) Troponin-I [0.00-0.40 ng/mL] <0.02 ng/mL (01/04/2014 11:36:00 [facility]) LIPIDS Most recent to oldest [Reference Range]: 1 2 CHD Risk [4.00-7.30] 7.17 (01/04/2014 02:10:00 [facility]) Chol [<=199 mg/dL] 165 mg/dL (01/04/2014 02:10:00 [facility]) Trig [<=149 mg/dL] 118 mg/dL (01/04/2014 02:10:00 [facility]) HDL [>=61 mg/dL] 23 mg/dL *LOW* (01/04/2014 02:10:00 [facility]) LDL (Calculated) [<=99 mg/dL] 118 mg/dL *HI* (01/04/2014 02:10:00 [facility]) SPECIAL CHEMISTRY Most recent to oldest [Reference Range]: 1 2 Hgb A1C [<=5.6 %] 5.6 % (01/04/2014 02:10:00 [facility]) URINE AND STOOL Most recent to oldest [Reference Range]: 1 2 UA Turbidity [Clear] Clear (01/04/2014 11:35:03 [facility]) UA Color [Yellow] Yellow *NA* (01/04/2014 11:35:03 [facility]) UA pH [5.0-8.0] 6.5 (01/04/2014 11:35:03 [facility]) UA Spec Grav [<=1.030] >=1.050 *ABN* (01/04/2014 11:35:03 [facility]) UA Glucose [Negative mg/dL] Negative mg/dL *NA* (01/04/2014 11:35:03 [facility]) UA Blood [Negative] Negative (01/04/2014 11:35:03 [facility]) UA Ketones [Negative mg/dL] Negative mg/dL *NA* (01/04/2014 11:35:03 [facility]) UA Protein [Negative mg/dL] 50 mg/dL *ABN* (01/04/2014 11:35:03 [facility]) UA Urobilinogen [0.1-1.0 mg/dL] 2.0 mg/dL *HI* (01/04/2014 11:35:03 [facility]) UA Bili [Negative] Negative *NA* (01/04/2014 11:35:03 [facility]) UA Leuk Est [Negative] Negative (01/04/2014 11:35:03 [facility]) UA Nitrite [Negative] Negative (01/04/2014 11:35:03 [facility]) UA WBC [0-5 /HPF] 1 /HPF (01/04/2014 11:35:03 [facility]) UA RBC [0-2 /HPF] 1 /HPF (01/04/2014 11:35:03 [facility]) UA Sq Epi [Few /LPF] Occasional /LPF *NA* (01/04/2014 11:35:03 [facility]) UA Renal Epi [<=0 /LPF] 1 /LPF *HI* (01/04/2014 11:35:03 [facility]) UA Mucus [None Seen /LPF] Few /LPF *NA* (01/04/2014 11:35:03 [facility]) HEMATOLOGY Most recent to oldest [Reference Range]: 1 2 WBC [3.7-10.4 K/CMM] 9.1 K/CMM (01/04/2014 02:10:00 [facility]) RBC [4.70-6.10 M/CMM] 5.06 M/CMM (01/04/2014 02:10:00 [facility]) Hgb [14.0-18.0 g/dL] 15.6 g/dL (01/04/2014:10:00 [facility]) Hct [42.0-54.0 %] 45.8 % (01/04/2014 02:10:00 [facility]) MCV [80.0-94.0 fL] 90.6 fL (01/04/2014 02:10:00 [facility]) MCH [27.0-31.0 pg] 30.8 pg (01/04/2014:10:00 [facility]) MCHC [32.0-36.0 g/dL] 34.0 g/dL (01/04/2014:10: [facility]) RDW [11.5-14.5 %] 14.3 % (01/04/2014:10:00 [facility]) Platelet [133-450 K/CMM] 181 K/CMM (01/04/2014:10:00 [facility]) MPV [7.4-10.4 fL] 9.0 fL (01/04/2014 02:10:00 [facility]) Segs [45.0-75.0 %] 63.5 % (01/04/2014:10:00 [facility]) Lymphocytes [20.0-40.0 %] 24.3 % (01/04/2014 02:10:00 [facility]) Monocytes [2.0-12.0 %] 9.3 % (01/04/2014:10:00 [facility]) Eosinophils [0.0-4.0 %] 2.6 % (01/04/2014 02:10:00 [facility]) Basophils [0.0-1.0 %] 0.3 % (01/04/2014:10:00 [facility]) Segs-Bands # [1.5-8.1 K/CMM] 5.8 K/CMM (01/04/2014 02:10:00 [facility]) Lymphocytes # [1.0-5.5 K/CMM] 2.2 K/CMM (01/04/2014 02:10:00 [facility]) Monocytes # [0.0-0.8 K/CMM] 0.9 K/CMM *HI* (01/04/2014 02:10:00 [facility]) Eosinophils # [0.0-0.5 K/CMM] 0.2 K/CMM (01/04/2014 02:10:00 [facility]) Medications Administered During Your Visit No data available for this section Immunizations No data available for this section Procedures Procedure Type Body Site Date of Procedure Related Diagnosis Cholecystectomy Hip replacement Social History Social History Type Response Assessment and Plan Extracted from: Title: Clinical Document Author: Gabby Cortez Date: 01/04/2014 [facility] [place]DISCHARGE SUMMARY Date of Admission: 01/03/14 [...] Stroke Fellow Clinic within 4-6 weeks, call [phone] Discharge Instructions: The patient received stroke education [...] open/ close the eyes and then to assistance representative and release the non- paretic hand __0__ [...] was discussed with __Gonzalez , the attending/fellow refrigeration installer. Jodi Prabhakar MD Neurology PGY-2 MSO : [phone] Pager : [phone] STROKE NEUROLOGY STAFF I have seen and [...] 57%. Transthoracic Echocardiogram: pending Assessment / Plan: 35814 TIA - 435.9 - see below. Asymptomatic [...] has also been emphasized. Omar Santizo M.D. Refurbish Technician Dept of Neurology [phone] (pager) [phone] (cell)
--- OUTSIDE RECORDS SUMMARY | 2018-05-29 09:54 | XMS REPORT | CCD ---
:1935 Author Organization [facility] Outpatient Imaging [place] Care Team Providers Name Role Phone Rustam Benavides Consulting Provider Allergies, Adverse Reactions, Alerts Substance Reaction Status NKDA Active Problem List Condition Effective Dates Status Acute pain Active
--- OUTSIDE RECORDS SUMMARY | 2018-05-29 09:55 | XMS REPORT ---
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 Problem Benign essential HTN I10 Active Problem Depression F32.9 Active Problem Anxiety F41.9 Active Problem Decreased testosterone level E29.1 Active Problem Traumatic subarachnoid hemorrhage S06.6X0S Active without loss of consciousness, sequela Problem Intracranial hemorrhage I62.9 Active Problem Hyperlipidemia, mixed E78.2 Active Assessment History of cerebrovascular Z86.73 Active accident Assessment Hyperlipidemia, mixed E78.2 Active Assessment Dysenteric diarrhea A09 Active Problem History of cerebrovascular Z86.73 Active accident Medications Medication Code System Code Instructions Start End Date Status Dosage Date Lipitor ND 77518154367 80 MG Orally Inactive 1 tablet Once a day Zoloft ND 36675838223 100 MG Orally Active 1 tablet Once a day Aspir-81 ND 97809589709 81 MG Orally Active 1 tablet Once a day Repatha [facility] 09427808802 140 MG/ML April 18, Aug 16, Active 1 ml Subcutaneous 2017 2017 every 2 weeks Results No Known Results Summary Purpose eClinicalWorks Submission
--- OUTSIDE RECORDS SUMMARY | 2018-05-29 09:55 | XMS REPORT ---
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 Problem Hx of pulmonary embolus Z86.711 Active Problem Traumatic subarachnoid hemorrhage S06.6X0S Active without loss of consciousness, sequela Problem History of transient ischemic Z86.73 Active attack Assessment Hyperlipidemia, mixed E78.2 Active Problem Intracranial hemorrhage I62.9 Active Problem Depression F32.9 Active Medications Medication Code System Code Instructions Start Date End Date Status Dosage Zoloft [facility] 33347860872 100 MG Orally Active 1 tablet Once a day Repatha [facility] 30966503926 140 MG/ML April 18, Aug 16, Active 1 ml Subcutaneous 2017 2017 every 2 weeks Aspir-81 [facility] 83191340305 81 MG Orally Once Active 1 tablet a day Results No Known Results Summary Purpose eClinicalWorks Submission
--- OUTSIDE RECORDS SUMMARY | 2018-05-29 09:55 | XMS REPORT ---
:1935 Author Organization [employer] Care Team Providers Name Role Phone Otto Ana Lilia Provider Role Unavailable Allergies, Adverse Reactions, Alerts Substance Reaction Event Type N.K.D.A. Info Not Available Non Drug Allergy Problems Problem Type Condition Code Onset Dates [...] of transient ischemic Z86.73 Active attack Assessment Prostate cancer C61 Active Assessment Fatigue, unspecified type R53.83 Active Problem Intracranial hemorrhage I62.9 Active Problem Depression F32.9 Active Medications Medication Code System Code Instructions Start Date End Date Status Dosage Zoloft [facility] 65856632767 100 MG Orally Active 1 tablet Once a day Aspir-81 [facility] 57289332505 81 MG Orally Once Active 1 tablet a day Repatha [facility] 75001426442 140 MG/ML April 18, Aug 16, Active 1 ml Subcutaneous 2017 2017 every 2 weeks Results Name Result Date Reference Range Unit Abnormality Flag URINALYSIS AUTO W/O SCOPE (21276) ----RACIEL trace 20180423 ----NIT pos 20180423 ----PROTEIN neg 20180423 ----pH 5.5 20180423 ----BLO neg 20180423 ----GLUCOSE neg 20180423 ----BILIRUBIN 1+ 20180423 ----KETONES trace 20180423 ----SPECIFIC GRAVITY >=1.030 20180423 PVR ----PVR 0 [id number] Summary Purpose eClinicalWorks Submission
--- OUTSIDE RECORDS SUMMARY | 2018-05-29 09:55 | XMS REPORT ---
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
--- OUTSIDE RECORDS SUMMARY | 2018-05-29 09:55 | XMS REPORT ---
:1935 Author Organization [employer]Clinical[employer] Care Team Providers Name Role Phone Ana Lilia Menjivar Provider Role Unavailable Allergies No Known Allergies [...]
--- OUTSIDE RECORDS SUMMARY | 2018-05-29 09:55 | XMS REPORT ---
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 Assessment Diarrhea, unspecified type R19.7 Active Problem History of cerebrovascular Z86.73 Active accident Problem Benign essential HTN I10 Active Problem Depression F32.9 Active Problem Anxiety F41.9 Active Problem Decreased testosterone level E29.1 Active Problem Traumatic subarachnoid hemorrhage S06.6X0S Active without loss of consciousness, sequela Problem Intracranial hemorrhage I62.9 Active Problem Hyperlipidemia, mixed E78.2 Active Medications Medication Code System Code Instructions Start Date End Date Status Dosage Zoloft [facility] 33983874725 100 MG Orally Active 1 tablet Once a day Aspir-81 [facility] 76184127094 81 MG Orally Once Active 1 tablet a day Lipitor [facility] 25824183344 80 MG Orally Once Active 1 tablet a day Results No Known Results Summary Purpose eClinicalWorks Submission
--- OUTSIDE RECORDS SUMMARY | 2018-05-29 09:55 | XMS REPORT | Summary of Care ---
:1935 Author Organization [facility] Address [address] [place], [place] [address]- Encounter HQ Encntr_alias(FIN) [id number] Date(s): 10/16/17 - 10/16/[address] Professional Services provided by [facility] [place] [address]- Discharge Disposition: ED Registered In Error Attending Physician: Monica Lancaster MD Admitting Physician: Monica Lancaster MD Referring Physician: Anil Proctor MD Vital Signs No data available for this section Problem List Condition Effective Dates Status Health Status Informant Acute pain(Confirmed) Active CVA (cerebral vascular Resolved accident)(Confirmed)1 HLD (hyperlipidemia)(Confirmed) Resolved HTN (hypertension)(Confirmed) Resolved Prostate cancer(Confirmed) Resolved TIA (transient ischemic Resolved attack)(Confirmed) 1R. sided defecits Allergies, Adverse Reactions, Alerts Substance Reaction Severity Status NKDA Active Medications No data available for this section Results No data available for this section Immunizations Given and Recorded Vaccine Date Status [...]
[2018-05-29 10:40] LABS: Absolute Lymphocytes (CBC) 1.4 K/uL (0.7-4.9); Absolute Neutrophil 5.6 K/uL (1.8-8.0); Basophils % 0.7 % (0-1.3); Eosinophils % 4.9 % (0-4.4); Hematocrit 43.2 % (39.6-49.0); MCH 31.9 pg (27.0-35.0); MCV 91.4 fL (80-100); MPV 8.5 fL (7.6-11.3); Monocytes % 11.4 % (3.3-12.3); RBC Red Blood Cell Count 4.72 M/uL (4.33-5.43)
--- NOTE | 2018-05-29 10:53 | RAD REPORT ---
EXAM DESCRIPTION: RAD - Chest Single View - 05/29/2018 10:48 am CLINICAL HISTORY: CHEST PAIN Chest pain. COMPARISON: Chest Single View dated 07/24/2017; Chest Single View dated 07/21/2017; Chest Single View d ated 05/25/2017; Chest Single View dated 11/09/2016 FINDINGS: Portable technique limits examination quality. Ill-defined opacity is present in the right mid lung, suspicious for developing pneumonia. The heart is normal in size. No displaced fractures. IMPRESSION: Ill-defined opacity in the right mid lung, suspicious for developing pneumonia.
[2018-05-29 10:55] LABS: Protime INR 1.11
[2018-05-29 11:42] LABS: Potassium 4.3 mmol/L (3.5-5.1)
--- NOTE | 2018-05-29 11:52 | RAD REPORT ---
EXAM DESCRIPTION: CT - Chest For Pe Angio - 05/29/2018 11:39 am CLINICAL HISTORY: Chest pain, back pain, weakness COMPARISON: Portable chest May 29, 2018, CT chest December 2015 TECHNIQUE: Dynamically enhanced 3 mm thick images of the chest were obtained during administration o f approximately 150mL Isovue 370 IV contrast. Coronal and oblique MIP reconstruction images were gene rated and reviewed. Exam utilizes a protocol to evaluate the pulmonary arterial tree. All CT scans are performed using dose optimization technique as appropriate and may include automated exposure control or mA/KV adjustment according to patient size. FINDINGS: Extensive pulmonary embolic disease is present filling the distal aspect of the right main stem bronchus. This extends into right upper lobar and segmental branches. There is further extension of thrombus partially occlusive of the right middle lobe pulmonary artery. Right lower lobar and seg mental branch pulmonary emboli are present. Airspace opacification is present in post oral lateral mi d and upper right lower lobe. This is in the vascular distribution of the thrombosed pulmonary arteri es. This is probably pulmonary hemorrhage. No left upper lobe pulmonary emboli confirmed. Small focus of embolism present an 80 segmental branch artery of the left lower lobe and subsegmental branches in the medial left base. No alveolar hemorrh age on the left. The aorta as imaged shows no acute or suspicious finding. No pericardial thickening or effusion. No suspicious soft tissue mass the lung parenchyma. No pleural effusion or pleural thickening. No mediastinal or hilar suspicious masses. No chest wall masses or abnormal axillary lymphadenopathy. Findings telephoned to Dr. Cohen 11:47 a.m.. IMPRESSION: Extensive pulmonary embolic disease filling the distal aspect of the right main pulmonar y artery and extending into lobar and segmental branches of the right upper, middle and lower lobes. Minimal pulmonary embolic disease seen in segmental and subsegmental branches of the left lower lobe. There is a moderate area of airspace opacification in the mid and upper right lower lobe in the distr ibution of the thrombosed pulmonary arteries. This is most likely pulmonary hemorrhage.
[2018-05-29] MEDS ORDERED: HEPARIN/D5W 25,000 UNIT/500 ML BAG IV ONE (12:40)
--- NOTE | 2018-05-29 13:03 | EDPHYS ---
Physician Documentation [facility] Name: Mac Yung Jr Age: 83 yrs Sex: Male : 1935 Arrival Date: 05/29/2018 Time: 09:[address] Private MD: out of town, doctor ED Physician Bogdan Cohen HPI: 05/29 12:50 This 83 yrs old Male presents to ER via Ambulatory with complaints of gs Pneumonia. 12:50 The patient or guardian reports chest pain that is located primarily in the right gs lateral posterior chest. Onset: 2 day(s) ago. The pain does not radiate. Associated signs and symptoms: Pertinent positives: shortness of breath. The chest pain is described as sharp. Duration: The patient or guardian reports multiple episodes. Modifying factors: the symptoms are aggravated by deep breath. Severity of pain: At its worst the pain was moderate in the emergency department the pain is unchanged. The patient has experienced similar episodes in the past, a few times. Historical: - Allergies: 09:53 No Known Allergies; hj - Home Meds: 09:53 sertraline oral oral [Active]; vitamin Y64-ozcov acid oral oral [Active]; hj - PMHx: 09:53 Anxiety; CVA; Hyperlipidemia; Hypertension; TIA; hj - PSHx: 09:53 Appendectomy; prostate removal; left hip replacement; Cholecystectomy; hj - Immunization history:: Adult Immunizations not up to date. - Social history:: Smoking status: Patient/guardian denies using tobacco, Patient/guardian denies using alcohol. - Ebola Screening: : Patient negative for fever greater than or equal to 101.5 degrees Fahrenheit, and additional compatible Ebola Virus Disease symptoms Patient denies exposure to infectious person Patient denies travel to an Ebola-affected area in the 21 days before illness onset. ROS: 12:50 All other systems are negative. gs Exam: 12:50 Head/Face: Normocephalic, atraumatic. Eyes: Pupils equal round and reactive to light, gs extra-ocular motions intact. Lids and lashes normal. Conjunctiva and sclera are non-icteric and not injected. Cornea within normal limits. Periorbital areas with no swelling, redness, or edema. ENT: Nares patent. No nasal discharge, no septal abnormalities noted. Tympanic membranes are normal and external auditory canals are clear. Oropharynx with no redness, swelling, or masses, exudates, or evidence of obstruction, uvula midline. Mucous membranes moist. Neck: Trachea midline, no thyromegaly or masses palpated, and no cervical lymphadenopathy. Supple, full range of motion without nuchal rigidity, or vertebral point tenderness. No Meningismus. Chest/axilla: Normal chest wall appearance and motion. Nontender with no deformity. No lesions are appreciated. Cardiovascular: Regular rate and rhythm with a normal S1 and S2. No gallops, murmurs, or rubs. Normal PMI, no JVD. No pulse deficits. Respiratory: Lungs have equal breath sounds bilaterally, clear to auscultation and percussion. No rales, rhonchi or wheezes noted. No increased work of breathing, no retractions or nasal flaring. Abdomen/GI: Soft, non-tender, with normal bowel sounds. No distension or tympany. No guarding or rebound. No evidence of tenderness throughout. Back: No spinal tenderness. No costovertebral tenderness. Full range of motion. Skin: Warm, dry with normal turgor. Normal color with no rashes, no lesions, and no evidence of cellulitis. MS/ Extremity: Pulses equal, no cyanosis. Neurovascular intact. Full, normal range of motion. Neuro: Awake and alert, GCS 15, oriented to person, place, time, and situation. Cranial nerves II-XII grossly intact. Motor strength 5/5 in all extremities. Sensory grossly intact. Cerebellar exam normal. Normal gait. 12:50 Constitutional: The patient appears alert, awake. 12:50 ECG was reviewed by the Attending Physician. Vital Signs: 09:54 BP 100 / 63; Pulse 83; Resp 18; Temp 98.2(O); Pulse Ox 95% on R/A; Weight 83.91 kg; hj Height 6 ft. 3 in. (190.50 cm); Pain 3/10; 10:29 BP 120 / 65; Pulse 71; Resp 16 S; Pulse Ox 95% on R/A; Pain 0/10; aa5 11:00 BP 115 / 50; Pulse 68; Resp 16 S; Pulse Ox 97% on R/A; aa5 13:38 BP 154 / 73; Pulse 61; Resp 18; Pulse Ox 97% on R/A; mh5 14:30 BP 147 / 71; Pulse 60; Resp 16 S; Pulse Ox 98% on R/A; Pain 0/10; aa5 09:54 Body Mass Index 23.12 (83.91 kg, 190.50 cm) hj MDM: 10:12 Patient medically screened. gs 12:50 Differential diagnosis: coronary artery disease pneumonia, pulmonary embolus, thoracic gs aortic disection. Data reviewed: vital signs, nurses notes. 05/29 10:14 Order name: Basic Metabolic Panel; Complete Time: 11:53 05/29 10:14 Order name: CBC with Diff; Complete Time: 10:54 05/29 10:14 Order name: PT-INR; Complete Time: 11:07 05/29 10:14 Order name: Troponin (emerg Dept Use Only); Complete Time: 12:11 05/29 10:14 Order name: D-Dimer; Complete Time: 11: 05/29 10:16 Order name: Urine Dipstick--Ancillary (enter results); Complete Time: 14:08 05/29 10:14 Order name: XRAY Chest (1 view); Complete Time: 11:07 05/29 10:14 Order name: EKG; Complete Time: 10:15 05/29 10:14 Order name: Cardiac monitoring; Complete Time: 10:16 05/29 10:14 Order name: EKG - Nurse/Tech; Complete Time: 10:29 05/29 11:04 Order name: CT Chest For PE Angio; Complete Time: 12:11 05/29 11:48 Order name: US Extremity Venous W Compression Rashaad 05/29 11:53 Order name: Echo w/ Doppler 05/29 10:14 Order name: IV Saline Lock; Complete Time: 10:29 05/29 10:14 Order name: Labs collected and sent; Complete Time: 10:29 05/29 10:14 Order name: O2 Per Protocol; Complete Time: 10:16 05/29 10:14 Order name: O2 Sat Monitoring; Complete Time: 10:16 05/29 10:14 Order name: Urine Dipstick-Ancillary (obtain specimen); Complete Time: 10:29 EC:50 Rate is 70 beats/min. Rhythm is regular. DE interval is normal. No Q waves. T waves are gs Normal. No ST changes noted. Clinical impression: Abnormal EKG without significant change. Interpreted by me. Administered Medications: 13:10 Drug: Heparin (DVT/PE Drip) 18 units/kg/hr - (HEParin 17659 units, D5W 500 ml) {Co-Signature: aa5 (Santa Chopra RN).} Route: IV; Rate: calculated rate; Site: right antecubital; 14:30 Follow up: IV Status: Infusion continued upon transfer aa5 Disposition: 12:50 Critical Care:. gs Disposition: 05/29/18 13:01 Transfer ordered to [facility]. Diagnosis are Pulmonary embolism without acute cor pulmonale, Acute embolism and thrombosis of unspecified deep veins of distal lower extremity, bilateral. - Reason for transfer: Higher level of care. - Accepting physician is tbd. - Condition is Stable. - Problem is new. - Symptoms have improved. Critical care time excluding procedures: 12:50 Critical care time: Bedside Care: 10 minutes, Consultation: 10 minutes, Family gs Intervention: 10 minutes. Total time: 30 minutes Signatures: Dispatcher [employer] EDFawn Santos RN RN iw Calderon, Audri, RN RN aa5 Alonzo Shetty RN RN Bogdan Cohen MD MD Santa Chopra RN aa5 Corrections: (The following items were deleted from the chart) 13:12 13:01 05/29/2018 13:01 Transfer ordered to [facility]. Diagnosis is Pulmonary embolism without acute cor pulmonale. Reason for transfer: Higher level of care. Accepting physician is tbd. Condition is Stable. Problem is new. Symptoms have improved. 14:49 13:12 05/29/2018 13:01 Transfer ordered to [facility]. Diagnosis is aa5 Pulmonary embolism without acute cor pulmonale; Acute embolism and thrombosis of unspecified deep veins of distal lower extremity, bilateral. Reason for transfer: Higher level of care. Accepting physician is tbd. Condition is Stable. Problem is new. Symptoms have improved.
--- NOTE | 2018-05-29 13:03 | ER ---
Nurse's Notes [facility] Name: Mac Yung Jr Age: 83 yrs Sex: Male : 1935 Arrival Date: 05/29/2018 Time: 09:[address] Private MD: out of town, doctor Diagnosis: Pulmonary embolism without acute cor pulmonale;Acute embolism and thrombosis of unspecified deep veins of distal lower extremity, bilateral Presentation: 05/29 09:50 Presenting complaint: Patient states: when i take a deep breath i have a pain in my hj lower back and i feel weak, started about Monday, May 27, denies fever and chills; denies cough;. Transition of care: patient was not received from another setting of care. Onset of symptoms was May 27, 2018. Risk Assessment: Do you want to hurt yourself or someone else? Patient reports no desire to harm self or others. Initial Sepsis Screen: Does the patient meet any 2 criteria? No. Patient's initial sepsis screen is negative. Does the patient have a suspected source of infection? No. Patient's initial sepsis screen is negative. Care prior to arrival: None. 09:50 Method Of Arrival: Ambulatory 09:50 Acuity: ABUNDIO 3 hj Triage Assessment: 09:54 General: Appears in no apparent distress. uncomfortable, Behavior is calm, cooperative, hj appropriate for age. Pain: Complains of pain in back. Historical: - Allergies: 09:53 No Known Allergies; hj - Home Meds: 09:53 sertraline oral oral [Active]; vitamin I51-atisu acid oral oral [Active]; hj - PMHx: 09:53 Anxiety; CVA; Hyperlipidemia; Hypertension; TIA; hj - PSHx: 09:53 Appendectomy; prostate removal; left hip replacement; Cholecystectomy; hj - Immunization history:: Adult Immunizations not up to date. - Social history:: Smoking status: Patient/guardian denies using tobacco, Patient/guardian denies using alcohol. - Ebola Screening: : Patient negative for fever greater than or equal to 101.5 degrees Fahrenheit, and additional compatible Ebola Virus Disease symptoms Patient denies exposure to infectious person Patient denies travel to an Ebola-affected area in the 21 days before illness onset. Screenin:54 Abuse screen: Denies threats or abuse. Denies injuries from another. Nutritional hj screening: No deficits noted. Tuberculosis screening: No symptoms or risk factors identified. Fall Risk None identified. Assessment: 10:10 General: Appears comfortable, Behavior is calm, cooperative. Pain: Complains of pain in aa5 right mid back area Pain does not radiate. Pain currently is 0 out of 10 on a pain scale. Quality of pain is described as sharp, Pain began 2-3 days ago. Is episodic, Aggravated by deep breathing. Pt reports pain only when taking a deep breath. Neuro: Level of Consciousness is awake, alert, obeys commands, Oriented to person, place, time, situation, Customer Care Specialist are equal bilaterally Moves all extremities. Speech is normal, Facial symmetry appears normal, Pupils are PERRLA, Reports generalized weakness for "a few months" . Cardiovascular: Heart tones S1 S2 present Rhythm is sinus rhythm. Respiratory: Airway is patent Respiratory effort is even, unlabored, Respiratory pattern is regular, symmetrical, Breath sounds are clear bilaterally. Denies cough, shortness of breath. GI: Abdomen is flat, non-distended, Bowel sounds present X 4 quads. Abd is soft and non tender X 4 quads. Patient currently denies diarrhea, nausea, vomiting. : No signs and/or symptoms were reported regarding the genitourinary system. EENT: No signs and/or symptoms were reported regarding the EENT system. Derm: Skin is pink, warm \\T\\ dry. Musculoskeletal: Range of motion: intact in all extremities. 11:00 Reassessment: Patient and/or family updated on plan of care and expected duration. Pain aa5 level reassessed. Patient is alert, oriented x 3, equal unlabored respirations, skin warm/dry/pink. Patient denies pain at this time. 12:20 Reassessment: To bedside to administer Heparin, Pt currently in US. aa5 13:10 Reassessment: Patient and/or family updated on plan of care and expected duration. Pain aa5 level reassessed. Patient is alert, oriented x 3, equal unlabored respirations, skin warm/dry/pink. Pt back from US, Heparin administered (see MAR). 13:10 Reassessment: Strict bedrest per MD. aa5 14:40 Reassessment: Patient is alert, oriented x 3, equal unlabored respirations, skin aa5 warm/dry/pink. Vital Signs: 09:54 BP 100 / 63; Pulse 83; Resp 18; Temp 98.2(O); Pulse Ox 95% on R/A; Weight 83.91 kg; hj Height 6 ft. 3 in. (190.50 cm); Pain 3/10; 10:29 BP 120 / 65; Pulse 71; Resp 16 S; Pulse Ox 95% on R/A; Pain 0/10; aa5 11:00 BP 115 / 50; Pulse 68; Resp 16 S; Pulse Ox 97% on R/A; aa5 13:38 BP 154 / 73; Pulse 61; Resp 18; Pulse Ox 97% on R/A; mh5 14:30 BP 147 / 71; Pulse 60; Resp 16 S; Pulse Ox 98% on R/A; Pain 0/10; aa5 09:54 Body Mass Index 23.12 (83.91 kg, 190.50 cm) ED Course: 09:49 Patient arrived in ED. mr 09:49 out of town, doctor is Private Physician. mr 09:52 Triage completed. hj 09:54 Arm band placed on left wrist. hj 09:54 Patient has correct armband on for positive identification. Bed in low position. Call light in reach. Side rails up X 1. Adult w/ patient. 09:58 Bogdan Cohen MD is Attending Physician. gs 10:16 Santa Chopra, PAMELA is Primary Nurse. aa5 10:20 Initial lab(s) drawn, by me, sent to lab. Inserted saline lock: 20 gauge in right jb4 antecubital area, using aseptic technique. Blood collected. 10:34 No provider procedures requiring assistance completed. aa5 10:46 X-ray completed. Portable x-ray completed in exam room. Patient tolerated procedure sw well. 10:47 XRAY Chest (1 view) In Process Unspecified. EDMS 11:04 Notified ED physician of a critical lab result(s). D-dimer=19,403. iw 11:40 CT Chest For PE Angio In Process Unspecified. EDMS 12:54 US Extremity Venous W Compression Rashaad In Process Unspecified. EDMS 13:12 Ultrasound completed. Patient tolerated well. Patient moved back from ultrasound. hr 13:57 Report given to [place] [id number] [place]. aj 14:40 Patient transferred, IV remains in place. aa5 Administered Medications: 13:10 Drug: Heparin (DVT/PE Drip) 18 units/kg/hr - (HEParin 99421 units, D5W 500 ml) {Co-Signature: aa5 (Santa Chopra RN).} Route: IV; Rate: calculated rate; Site: right antecubital; 14:30 Follow up: IV Status: Infusion continued upon transfer aa5 Outcome: 13:01 ER care complete, transfer ordered by . 14:40 Transferred by ground EMS to [facility], Transfer form completed. aa5 X-rays sent w/ patient. Note: Report given to [facility] 14:40 Condition: stable 14:40 Discharge instructions given to patient, significant other, Instructed on the need for transfer, Demonstrated understanding of instructions. 14:49 Patient left the ED. aa5 Signatures: Dispatcher [employer] Tigist Benoit, RN Astrid Wise mr Higinio, Fawn Jenkins, Santa Marie RN, RN RN aa5 Haylee Beavers Henry, RN RN hj Bryson, James, RN RN jb4 Martinez, Maria [facility] Bogdan Cohen MD MD Santa Chopra RN aa5 Corrections: (The following items were deleted from the chart) 09:57 09:50 Presenting complaint: Patient states: when i take a deep breath i have a pain in hj my lower back, started about Monday, May 27, denies fever and chills; denies cough; hj 09:57 09:54 Pulse 83bpm; Resp 18bpm; Pulse Ox 95% RA; Temp 98.2F Oral; 83.91 kg; Height 6 ft. hj 3 in.; BMI: 23.1; Pain 3/10; hj
[2018-05-29 14:04] LABS: Urine Blood TRACE (NEG); Urine Glucose NEGATIVE (NEG); Urine Protein TRACE (NEG); Urine Specific Gravity 1.025 (1.005-1.030); Urine pH 5.5 (5.0-7.0)
--- NOTE | 2018-05-29 14:14 | RAD REPORT ---
EXAM DESCRIPTION: VAS - Extrem Venous W Compress Rashaad - 05/29/2018 1:05 pm CLINICAL HISTORY: Leg pain and swelling, positive pulmonary embolism COMPARISON: CT chest same date TECHNIQUE: Real-time sonographic evaluation of the bilateral lower extremity deep venous systems was performed. FINDINGS: Normal compressibility, flow augmentation, phasic flow and spontaneous flow are identified in the left and right lower extremity common femoral, superficial femoral and popliteal veins. A mus deondre or superficial thrombosed branches seen in the posterior left thigh. There is extensive thrombus in the bilateral deep femoral vein. Complex 2.2 centimeter mass right popliteal fossa is believed to be a popliteal fossa cyst. Vascular origin for this mass is not suspected. IMPRESSION: Bilateral lower extremity thrombus is seen in an exclusive or predominantly muscle and s uperficial branch pattern.
--- NOTE | 2018-05-29 14:52 | EKG ---
Test Date: 2018-05-29 Test Time: 10:23:05 Cushion Former: JAYCOB MEASUREMENT RESULTS: Intervals: Rate: 70 ND: 202 QRSD: 92 QT: 386 QTc: 416 [place]: P: 50 ND: 202 QRS: -57 T: 35 INTERPRETIVE STATEMENTS: Normal sinus rhythm Left axis deviation Pulmonary disease pattern Abnormal ECG Compared to ECG 10/16/2017 16:22:35 First degree AV block no longer present Electronically Signed On 05-29-18 14:50:16 CDT by Angel Stewart
[2018-05-29 14:55] VITALS: TEMP 98.2
[2018-05-29 14:58] VITALS: O2SAT 97
[2018-05-29 14:59] VITALS: BP 154/73
--- NOTE | 2018-05-29 15:53 | ECHO ---
HEIGHT: 6 ft 3 in WEIGHT: 185 lb 0 oz DATE OF STUDY: 05/29/[address]: Bogdan Cohen MD 2-DIMENSIONAL: YES M.MODE: YES DOPPLER: YES COLOR FLOW: YES TDS: NO PORTABLE: NO DEFINITY: NO BUBBLE STUDY: NO DIAGNOSIS: PE CARDIAC HISTORY: CATHERIZATION: NO SURGERY: NO PROSTHETIC VALVE: NO PACEMAKER: NO MEASUREMENTS (cm) DIASTOLIC (NORMALS) SYSTOLIC (NORMALS) IVSd 1.1 (0.6-1.2) LA Diam 3.1 (1.9-4.0) LVEF 63% LVIDd 4.2 (3.5-5.7) LVIDs 2.8 (2.0-3.5) %FS 34% LVPWd 1.3 (0.6-1.2) Ao Diam 2.8 (2.0-3.7) 2 DIMENSIONAL ASSESSMENT: RIGHT ATRIUM: NORMAL LEFT ATRIUM: NORMAL RIGHT VENTRICLE: NORMAL LEFT VENTRICLE: NORMAL TRICUSPID VALVE: NORMAL MITRAL VALVE: NORMAL PULMONIC VALVE: NORMAL AORTIC VALVE: NORMAL PERICARDIAL EFFUSION: NONE AORTIC ROOT: NORMAL LEFT VENTRICULAR WALL MOTION: NORMAL DOPPLER/COLOR FLOW: NORMAL COMMENTS: NORMAL 2D ECHOCARDIOGRAM WITH DOPPLER. NO PULMONARY HYPERTENSION. NO EFFUSION. NO WALL MOTION ABNORMALITY. TECHNOLOGIST: Molly DEVRIES
== END 2018-05-29 14:49 | disposition short-term general hospital (02) ==
LOC: ER 09:44
DX: I26.99 Other pulmonary embolism without acute cor pulmonale (principal); I82.4Z3 Acute embolism and thrombosis of unspecified deep veins of distal lower extremity, bilateral; I10 Essential (primary) hypertension; E78.5 Hyperlipidemia, unspecified; F41.9 Anxiety disorder, unspecified; Z86.73 Personal history of transient ischemic attack (TIA), and cerebral infarction without residual deficits
CPT/HCPCS: 36415; 71045; 71275; 80048; 81003; 84484; 85025; 85379; 85610; 93005; 93306; 93970; Q9967; 96365; 99285